=== PATIENT | male | born 1955 | race Caucasian/White ===

== ENCOUNTER 2017-06-24 10:16 | Inpatient (IN) | payer OTHER ==
[2017-06-24] VITALS (11 sets, daily range): BP systolic 93–179; BP diastolic 52–79; PULSE 69–100; RESP 20–22; TEMP 99.6; Ht 165.1 cm; Wt 126.4 kg
[~2017-06-24] VITALS: Ht 165.1 cm; Wt 126.4 kg
[~2017-06-24 10:16] MED LIST: AMLO5TAB4 PO; CARV3.1260 PO; LISI-313 PO; RANI150T9 PO; ZOC10 PO
--- NOTE | 2017-06-24 10:38 | ERA ---
ER Documentation Chief Complaint Date/Time DATE: 06/24/17 TIME: 10:37 Chief Complaint sob, body aches x 3 days HPI 61-year-old man brought in by EMS short of breath. He does have a history of hypertension, congestive heart failure, coronary artery disease. He states he has had tactile fevers for the last 3 days and cough. He also complains of recent bilateral lower extremity swelling. He has had no vomiting or diarrhea, no blood per rectum or melena, no recent travel or antibiotic use. ROS All systems reviewed and are negative except as per history of present illness. Medications Home Meds Reported Medications Ergocalciferol (Vitamin D2) (VITAMIN D2) 50,000 Unit Capsule, 84405 UNIT PO WEEKLY, CAP 06/24/17 Furosemide* (Furosemide*) 40 Mg Tablet, 40 MG PO DAILY, TAB 06/24/17 Aspirin* (Aspirin* Chew) 81 Mg Tab.chew, 81 MG PO DAILY, TAB.CHEW 06/24/17 Gabapentin* (Gabapentin*) 300 Mg Capsule, 300 MG PO QHS, #90 CAP 06/24/17 Glimepiride* (Glimepiride*) 1 Mg Tablet, 1 MG PO WITH BREAKFAST, TAB 06/24/17 Tamsulosin Hcl* (Flomax*) 0.4 Mg Cap.er.24h, 0.4 MG PO HS, CAP 06/24/17 Carvedilol* (Carvedilol*) 3.125 Mg Tablet, 3.125 MG PO BID, TAB 05/05/15 Ranitidine Hcl* (Zantac*) 150 Mg Tablet, 150 MG PO DAILY, TAB 05/05/15 Simvastatin (Simvastatin) 10 Mg Tablet, 10 MG PO HS, TAB 05/05/15 Discontinued Reported Medications Lisinopril* (Lisinopril*) 5 Mg Tablet, 5 MG PO DAILY, TAB 05/05/15 Amlodipine Besylate* (Norvasc*) 5 Mg Tablet, 5 MG PO QHS, TAB 05/05/15 Allergies Allergies: Coded Allergies: No Known Allergy (Verified Allergy, Unknown, 03/12/10) PMhx/Soc CABG, 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, hypertension, gastritis, Hernia, CHF, Obesity History of Surgery: Yes (open heart surgery) Anesthesia Reaction: No Hx Neurological Disorder: No Hx Respiratory Disorders: No Hx Cardiac Disorders: Yes (HTN, hx of open heart surg) Hx Psychiatric Problems: No Hx Miscellaneous Medical Probl: No Hx Alcohol Use: No Hx Substance Use: No Hx Tobacco Use: Yes FmHx Family History: No diabetes Physical Exam Vitals Vital Signs Date Time Temp Pulse Resp B/P Pulse Ox O2 Delivery O2 Flow Rate FiO2 06/24/17 12:47 80 97 60 06/24/17 12:27 84 24 107/54 96 BIPAP 06/24/17 12:08 99.6 85 26 107/65 98 BIPAP 06/24/17 10:52 91 97 50 06/24/17 10:18 100.1 94 18 146/69 86 Physical Exam GENERAL: Well-developed, dyspneic, febrile HEENT: Moist mucous membranes, pink conjunctiva, no cervical spine tenderness or step-off deformities, no goiter, no jaundice or icterus, extraocular movements intact without pain. No submandibular induration, and no pharyngeal erythema NEURO: Alert and oriented 3, cranial nerves II through XII intact bilaterally, pupils equal round reactive to light, no focal deficits or facial asymmetry, sensation intact distally Strength 5/5 in upper and lower extremities bilaterally CARDIAC: Regular rate and rhythm, no murmurs rubs or gallops LUNGS: Crackles bilaterally, poor breath sounds, no wheezing or stridor, dyspneic ABDOMEN: Soft nontender, no guarding, no rigidity, no rebound, no psoas sign no obturator sign. Normoactive bowel sounds SKIN: Warm and dry to touch, no abrasions, contusions, or hematomas, no lacerations, no ecchymosis, no target lesions, and without ulcers EXTREMITIES: 3+ pitting edema in the lower extremities bilaterally, calves bilaterally symmetrical, no Homans sign PSYCH: Normal affect without agitation or irritability Result Diagram: 06/24/17 1035 06/24/17 1035 Results 24 hrs Laboratory Tests Test 06/24/17 10:35 06/24/17 12:50 White Blood Count 17.410^3/ul Red Blood Count 4.1110^6/ul Hemoglobin 11.8g/dl Hematocrit 36.4% Mean Corpuscular Volume 88.6fl Mean Corpuscular Hemoglobin 28.7pg Mean Corpuscular Hemoglobin Concent 32.4g/dl Red Cell Distribution Width 14.6% Platelet Count 71299^3/UL Mean Platelet Volume 10.9fl Neutrophils % 80.6% Lymphocytes % 8.6% Monocytes % 8.5% Eosinophils % 0.0% Basophils % 0.6% Nucleated Red Blood Cells % 0.0/100WBC Neutrophils # 14.110^3/ul Lymphocytes # 1.510^3/ul Monocytes # 1.510^3/ul Eosinophils # 0.010^3/ul Basophils # 0.110^3/ul Nucleated Red Blood Cells # 0.010^3/ul Prothrombin Time 15.6Sec Prothrombin Time Ratio 1.2 INR International Normalized Ratio 1.23 Activated Partial Thromboplast Time 39.4Sec Sodium Level 132mmol/L Potassium Level 4.0mmol/L Chloride Level 96mmol/L Carbon Dioxide Level 26mmol/L Anion Gap 14 Blood Urea Nitrogen 11mg/dl Creatinine 0.90mg/dl Glucose Level 140mg/dl Lactic Acid Level 2.6mmol/L 1.9mmol/L Calcium Level 8.4mg/dl Total Bilirubin 0.5mg/dl Direct Bilirubin 0.00mg/dl Indirect Bilirubin 0.5mg/dl Aspartate Amino Transf (AST/SGOT) 67IU/L Alanine Aminotransferase (ALT/SGPT) 147IU/L Alkaline Phosphatase 105IU/L Troponin I 0.054ng/ml B-Type Natriuretic Peptide 1260PG/ML Total Protein 7.5g/dl Albumin 3.5g/dl Globulin 4.00g/dl Albumin/Globulin Ratio 0.87 Lipase 74U/L Current Medications Medications (Trade) Dose Ordered Sig/Serge Route PRN Reason Start Time Stop Time Status Last Admin Dose Admin Ceftriaxone Sodium 50 ml @ 100 mls/hr ONCE ONCE IVPB 06/24/17 11:00 06/24/17 11:29 DC 06/24/17 11:26 Azithromycin (Zithromax 500mg/ NS (Pmx)) 250 ml @ 250 mls/hr ONCE ONCE IVPB 06/24/17 11:00 06/24/17 11:59 DC 06/24/17 11:00 Ibuprofen (Motrin) 600 mg ONCE ONCE PO 06/24/17 11:00 06/24/17 11:01 DC 06/24/17 11:26 Furosemide (Lasix) 60 mg ONCE ONCE IV 06/24/17 11:00 06/24/17 11:01 DC 06/24/17 11:26 Nitroglycerin (Nitroglycerin (Sl Tab) 0.4 Mg) 1 tab ONCE ONCE SL 06/24/17 11:00 06/24/17 11:01 DC 06/24/17 11:26 Aspirin (Aspirin) 324 mg ONCE ONCE PO 06/24/17 11:00 06/24/17 11:01 DC 06/24/17 11:26 Albuterol (Proventil 0.083% (Neb)) 5 mg ONCE STAT HHN 06/24/17 10:40 06/24/17 10:47 DC 06/24/17 10:52 IV Flush (NS 3 ml) 3 ml PER PROTOCOL IV 06/24/17 13:30 Ondansetron HCl (Zofran Inj) 4 mg Q6H PRN IV NAUSEA AND/OR VOMITING 06/24/17 13:30 Aspirin (Aspirin) 81 mg DAILY PO 06/25/17 09:00 Acetaminophen (Tylenol Tab) 650 mg Q6H PRN PO PAIN LEVEL 1-3 OR FEVER 06/24/17 13:30 Famotidine (Pepcid Iv) 20 mg Q12 IV 06/24/17 21:00 Heparin Sodium (Porcine) 5000 unit 5,000 unit Q8 SC 06/24/17 14:00 Ceftriaxone Sodium 50 ml @ 100 mls/hr DAILY IVPB 06/25/17 09:00 Azithromycin (Zithromax 500mg/ NS (Pmx)) 250 ml @ 250 mls/hr Q24H IVPB 06/25/17 10:00 Carvedilol (Coreg) 3.125 mg BID PO 06/24/17 21:00 UNV Gabapentin (Neurontin) 300 mg QHS PO 06/24/17 21:00 UNV Tamsulosin HCl (Flomax) 0.4 mg HS PO 06/24/17 21:00 UNV Miscellaneous Information 10 mg HS PO 06/24/17 21:00 UNV Procedures/MDM IV line was established patient was placed on cardiac technologist rhythm strip revealed a sinus rhythm at about 80 bpm with upright P and T waves. Patient was febrile, blood and urine cultures were ordered results are pending I will follow-up.Patient was initially hypoxic at 88% on room air. Patient was immediately placed on BiPAP therapy for respiratory support. I administered aspirin 324 mg p.o. for cardioprotective measures, nitroglycerin 0.4 mg sublingual, Lasix 60 mg IV 1, ibuprofen 600 mg p.o. for fever, ceftriaxone 1 g IV and azithromycin 500 mg IV. Patient also received albuterol 5 mg via nebulizer. EKG performed, read by me revealed a normal sinus rhythm 87 bpm, left axis deviation, narrow QRS complex, no concerning ST elevations or depressions noted. One view chest x-ray performed, read by me revealed cardiomegaly and a right middle lobe infiltrate as well as bilateral vascular congestion concerning for decompensated heart failure, Positive sternotomy wires. CBC reveals a leukocytosis of 17, electrolytes are unremarkable, liver function tests revealed mild transaminitis, troponin negative, BNP elevated at over 1200. Lactic acid elevated at 2.6, repeat at 1.9. IV fluids were completely held because patient has acute decompensated systolic heart failure. Patient's infectious symptoms have not stabilized and the patient is at risk of rapid decompensation. The patient will be admitted for careful hydration, antibiotic therapy, and infectious source control. Severe Sepsis Assessment: Infectious Source: Pneumonia End organ damage indicated by: [Lactate > 2.0 mmol/L Hypotension( SBP < 90 or >40 mmHG drop or MAP < 65) Acute Resp Failure (sat < 92% w/o oxygen) Severe Sepsis Managment: Blood Cultures X 2 before broad spectrum antibiotics initiated within 3 hours of recognition. 30 ml/kg NS bolus contraindicated because of decompensated heart failure Initial Lactate: 2.6 Repeat Lactate 1.9 Critical Care: Time: 60 minutes, this was time separate from other billable procedures Treatments/Evaluations: Emergent fluid management, while maintaining close respiratory support. Immediate broad spectrum antibiotic therapy. Simultaneous assessment for possible sources in order to direct therapy. Consideration for invasive and chemical support to prevent respiratory or cardiac collapse. Septic Shock Assessment (1 hour post 30 ml/kg fluid bolus): Hypotension (SBP < 90 or 40 mmHg drop, MAP < 65): No Lactic acid > 4.0 No Perfusion Reassessment for Septic Shock: Temp 99.9, pulse 90 bpm, respiratory rate 18 breaths per minute, lead pressure 110/60, oxygen saturation 96% on BiPAP Heart Exam: Regular rate rhythm, no murmurs Lung Exam: Bibasilar crackles Capillary Refill: Less than 2 second Peripheral Pulses: Radially present Skin: Warm and dry Hypotensive Treatment (not required for isolated lactic acid elevation): Comfort Care: No Central LIne: Not indicated Vasopressor started: Not indicated Considered further perfusion assessment with CVP measurement, SCVO2, bedside ultrasound volume assessment, passive leg raise, trial of further fluid bolus. And preceded with IV antibiotics and BiPAP therapy Accepting Care Team: Current data and ongoing care discussed. Time: Time of admission Primary Provider: Hospitalist Consulting: Cardiology and pulmonology Outstanding Data: none Departure Diagnosis: Primary Impression: Acute respiratory failure Qualified Code: J96.01 - Acute respiratory failure with hypoxia and hypercapnia Additional Impressions: Septic shock Pneumonia Qualified Code: J18.1 - Pneumonia of right middle lobe due to infectious organism CHF (congestive heart failure) Qualified Code: I50.21 - Acute systolic congestive heart failure Hypertension Qualified Code: I10 - Essential hypertension Condition: Serious SHANIA VARGHESE MD Jun 24, 2017 10:38
[2017-06-24] MEDS ORDERED: ALBUTEROL 0.083% (NEB) 2.5 MG/3 ML AMP HHN STA (10:40)
[2017-06-24] MEDS ORDERED: ASPIRIN 81 MG TAB PO ONE (11:00)
[2017-06-24] MEDS ORDERED: FUROSEMIDE 40 MG INJ IV ONE (11:00)
[2017-06-24] MEDS ORDERED: AZITHROMYCIN 500MG/NS (PMX) 250 ML IVPB ONE (11:00)
[2017-06-24] MEDS ORDERED: NITROGLYCERIN (SL) 0.4 MG TAB SL ONE (11:00)
[2017-06-24] MEDS ORDERED: IBUPROFEN 600 MG TAB PO ONE (11:00)
[2017-06-24] MEDS ORDERED: CEFTRIAXONE 1 GM/50 ML (PMX) 50 ML IVPB ONE (11:00)
[2017-06-24 11:02] LABS: BASOPHIL # 0.1 10^3/ul (0.0-0.1); BASOPHILS % 0.6 % (0.0-2.0); HEMATOCRIT 36.4 % (42.0-52.0); HEMOGLOBIN 11.8 g/dl (14.0-18.0); LYMPHOCYTES # 1.5 10^3/ul (0.8-2.9); LYMPHOCYTES % 8.6 % (15.0-51.0); MEAN CORPUSCULAR HEMOGLOBIN 28.7 pg (29.0-33.0); MEAN CORPUSCULAR HGB CONC 32.4 g/dl (32.0-37.0); MEAN CORPUSCULAR VOLUME 88.6 fl (82.0-101.0); MEAN PLATELET VOLUME 10.9 fl (7.4-10.4); MONOCYTE # 1.5 10^3/ul (0.3-0.9); MONOCYTES % 8.5 % (0.0-11.0); NEUTROPHIL # 14.1 10^3/ul (1.6-7.5); NEUTROPHILS % 80.6 % (39.0-77.0); PLATELET COUNT 193 10^3/UL (140-415); RED BLOOD COUNT 4.11 10^6/ul (4.70-6.10); RED CELL DISTRIBUTION WIDTH 14.6 % (11.5-14.5); WHITE BLOOD COUNT 17.4 10^3/ul (4.8-10.8)
[2017-06-24 11:20] LABS: INR 1.23; PROTIME 15.6 Sec (12.2-14.2); PT RATIO 1.2
--- NOTE | 2017-06-24 11:20 | RADRPT ---
PROCEDURE: Chest Radiograph. CLINICAL INDICATION: Sepsis TECHNIQUE: Single frontal chest radiograph. COMPARISON: Chest radiograph 05/05/2015 FINDINGS: Patient is status post sternotomy. Patient rotation limits evaluation of heart size.. There are bib asilar opacities suggesting infiltrates. There are trace bilateral effusions. There is interstitial prominence which may represent chronic lung changes or pulmonary edema.. The bones are intact. IMPRESSION: 1. Bibasilar opacities consistent with small effusions with adjacent atelectasis/infiltrate. 2. Nonspecific interstitial prominence suggesting pulmonary edema. RPTAT: KK .Jaydon Justice MD, MD Date Time Electronically viewed and signed by .Jaydon Justice MD, on 06/24/2017 11:19 .B/
[2017-06-24 11:21] LABS: PARTIAL THROMBOPLASTIN TIME 39.4 Sec (25.0-35.0)
[2017-06-24 11:26] LABS: ALBUMIN 3.5 g/dl (3.3-4.9); ALBUMIN/GLOBULIN RATIO 0.87; BILIRUBIN,INDIRECT 0.5 mg/dl (0-1.1); BILIRUBIN,TOTAL 0.5 mg/dl (0.2-1.3); CALCIUM 8.4 mg/dl (8.4-10.2); CREATININE 0.9 mg/dl (0.61-1.24); TOTAL PROTEIN 7.5 g/dl (6.1-8.1)
[2017-06-24 11:34] LABS: TROPONIN-I 0.054 ng/ml (0.00-0.12)
[2017-06-24] MEDS ORDERED: TAMS-14 PO (12:25)
[2017-06-24] MEDS ORDERED: GLIM1TAB2 PO (12:25)
[2017-06-24] MEDS ORDERED: FURO40TA4 PO (12:28)
[2017-06-24] MEDS ORDERED: GABA300C16 PO (12:28)
[2017-06-24] MEDS ORDERED: ASPI81TA3 PO (12:28)
[2017-06-24] MEDS ORDERED: ERGO500037 PO (12:29)
[2017-06-24] MEDS ORDERED: NACL 0.9% 3 ML SYG IV SCH (13:30)
[2017-06-24] MEDS ORDERED: ACETAMINOPHEN 325 MG TAB PO PRN (13:30)
[2017-06-24] MEDS ORDERED: ONDANSETRON 4 MG INJ IV PRN (13:30)
--- NOTE | 2017-06-24 14:25 | HP ---
Date/Time of Note Date/Time of Note DATE: 06/24/17 TIME: 14:21 Assessment/Plan VTE Prophylaxis VTE Prophylaxis Intervention: heparin Lines/Catheters IV Catheter Type (from Nrs): Peripheral IV Assessment/Plan Assessment/Plan 1, Sepsis secondary to right lower lobe pneumonia - Placed on BIPAP and tolerating well - Pulmonology consulted for BIPAP management and appreciate recommendations - Started on Azithromycin and Ceftriaxone, will deescalate as patient improves - Nebs PRN for SOB - Lactic acid initially 2.6 but repeat normalized. Will continue monitoring - WBC 17K - Tylenol PRN for fevers - Pancultures obtained and will await results 2. Community acquired pneumonia - Started on Antibiotics - On BIPAP and will wean as tolerated - Nebs PRN for SOB - will encourage ambulation and incentive spirometry once off BIPAP 3. acute decompensated systolic heart failure - CXR shows pulmonary congestion and given dose of Lasix in ED - Was found to have BNP 1000s but also found to have sepsis so will intermittently diurese until sepsis fully resolved - Cardiology consulted and appreciated recommendations - Daily weights and monitor I/O 4. hyponatremia - Most likely secondary to hypervolemia - Will continue to monitor and workup if no resolution once fluid balance improves 5. transaminitis - Most likely secondary to congestion - Will continue to monitor 6. Diabetes Mellitus - hold PO home medications - check A1c - mild ISS 7. h/o CAD s/p CABG 10 years ago - per son, seen by cardiology recently and told everything was stable - Will order ECHO 8. Diet - Cardiac diet 9. GI prophylaxis - Pepcid 10. DVT prophylaxis - Heparin 11. Code status - Full Code >45 minutes was spent caring for patient at time of admission. HPI/ROS Admit Date/Time Admit Date/Time 06/24/17 Hx of Present Illness 61 yo M with PMH CAD s/p CABG 10 years ago, HTN, CAD, prediabetes, and ventral hernia presents to the ED after c/o SOB and myalgia for the past 3 days. Patient family was at bedside and history obtained from patient as well as son. Patient lives at home with son as well. Patient has been experiencing SOB with nonproductive cough that has been progressively worsening. Admits to associated fever, chills, sweats, nausea with vomiting, and diarrhea. Per son, he believes he may have the flu and source of sick contact for patient. Patient has also been experiencing lower extremity swelling but believes it was secondary to insect bite he obtained a couple months ago. Patient lives a sedentary lifestyle and has been eliminating carbohydrates from his diet with goal of weight loss. Patient denies any chest pain, dizziness, palpitations, numbness/tingling, or any other concerning symptoms. Patient was found to be hypoxic in the ED and started on BIPAP which he has been tolerating well. ROS Constitutional: chills, fatigue, febrile, nausea, No disoriented Eyes: no complaints ENT: no complaints Respiratory: cough, shortness of breath, No sputum, No wheezing Cardiovascular: edema, No chest pain, No lightheadedness, No palpitations Gastrointestinal: nausea, pain (site of ventral hernia), No constipation, No diarrhea Genitourinary: no complaints Musculoskeletal: no complaints Skin: erythema Neurologic: no complaints Endocrine: no complaints Lymphatic: no complaints Psychological: nl mood/affect, no complaints Immunologic: no complaints PMH/Family/Social Past Medical History Medical History: coronary artery disease, diabetes, hypertension Past Surgical History Past Surgical Hx: coronary bypass surgery, other (ventral hernia repair) Family History Significant Family History: no pertinent family hx Social History Alcohol Use: none Smoking Status: Former smoker Drug Use: none Exam/Review of Systems Vital Signs Vitals Vital Signs Date Time Temp Pulse Resp B/P Pulse Ox O2 Delivery O2 Flow Rate FiO2 06/24/17 12:47 80 97 60 06/24/17 12:27 24 107/54 BIPAP 06/24/17 12:08 99.6 Exam Constitutional: alert, oriented, well developed Psych: no complaints Head: atraumatic, normocephalic Eyes: EOMI, nl conjunctiva, nl sclera ENMT: mucosa pink and moist Neck: non-tender, supple Respiratory: crackles/rales (at bases b/l), normal air movement, other (on BIPAP), No wheezing Cardiovascular: nl pulses, regular rate and rhythm, No systolic murmur Gastrointestinal: bowel sounds, soft, tender (epigastric area at site of ventral hernia with palpation), No ascites, No hepatomegaly, No rebound or guarding Genitourinary - Male: No CVA tenderness, No discharge Musculoskeletal: nl extremities to inspection, nl gait and stance Extremities: edema, pitting pedal edema 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, nl mental status, nl speech, nl strength Skin: diaphoresis Lymph: nl lymph nodes Labs Result Diagram: 06/24/17 1035 06/24/17 1035 Medications Medications Current Medications Ondansetron HCl (Zofran Inj) 4 mg Q6H PRN IV NAUSEA AND/OR VOMITING; Start at 13:30 Aspirin (Aspirin) 81 mg DAILY PO ; Start 06/25/17 at 09:00 Acetaminophen (Tylenol Tab) 650 mg Q6H PRN PO PAIN LEVEL 1-3 OR FEVER; Start at 13:30 Famotidine (Pepcid Iv) 20 mg Q12 IV ; Start 06/24/17 at 21:00 Heparin Sodium (Porcine) 5000 unit 5,000 unit Q8 SC ; Start 06/24/17 at 14:00 Ceftriaxone Sodium 50 ml @ 100 mls/hr DAILY IVPB ; Start 06/25/17 at 09:00 Azithromycin (Zithromax 500mg/ NS (Pmx)) 250 ml @ 250 mls/hr Q24H IVPB ; Start 06/25/17 at 10:00 Carvedilol (Coreg) 3.125 mg BID PO ; Start 06/24/17 at 21:00 Gabapentin (Neurontin) 300 mg QHS PO ; Start 06/24/17 at 21:00 Tamsulosin HCl (Flomax) 0.4 mg HS PO ; Start 06/24/17 at 21:00 Atorvastatin Calcium (Lipitor) 10 mg DAILY@21 PO ; Start 06/24/17 at 21:00 NICOLA EUBANKS MD Jun 24, 2017 14:25
[2017-06-24] MEDS: HEPARIN 5,000 UNIT/0.5 ML VIAL SC SCH ×2 (14:40→22:10)
[2017-06-24] MEDS ORDERED: GLUCAGON 1 MG INJ IM PRN (15:00)
[2017-06-24] MEDS ORDERED: DEXTROSE 50% 50 ML SYRINGE IV PRN ×2 (15:00)
[2017-06-24] MEDS ORDERED: GLUCOSE GEL 15 GRAM TUBE BUCCAL PRN (15:00)
[2017-06-24] MEDS ORDERED: GLUCOSE GEL 15 GRAM TUBE PO PRN ×2 (15:00)
[2017-06-24] MEDS ORDERED: ALBUTEROL 0.083% (NEB) 2.5 MG/3 ML AMP HHN PRN (15:00)
--- NOTE | 2017-06-24 16:14 | CONS ---
Date/Time of Note Date/Time of Note DATE: 06/24/17 TIME: 16:14 Consultation Date/Type/Reason Admit Date/Time 06/24/17 Date of Consultation: Jun 24, 2017 Type of Consultation: pulmonary Eyes: no complaints ENT: no complaints Respiratory: cough, shortness of breath, No sputum, No wheezing Cardiovascular: edema, No chest pain, No lightheadedness, No palpitations Gastrointestinal: nausea, pain (site of ventral hernia), No constipation, No diarrhea Genitourinary: no complaints Musculoskeletal: no complaints Skin: erythema Neurologic: no complaints Lymphatic: no complaints Psychological: no complaints Immunologic: no complaints Past Medical History Medical History: coronary artery disease, diabetes, hypertension Past Surgical History Past Surgical Hx: coronary bypass surgery, other (ventral hernia repair) Social History Alcohol Use: none Smoking Status: Former smoker Drug Use: none Exam/Review of Systems Vital Signs Vitals Vital Signs Date Time Temp Pulse Resp B/P Pulse Ox O2 Delivery O2 Flow Rate FiO2 06/24/17 16:03 69 06/24/17 13:56 97 60 06/24/17 12:27 24 107/54 BIPAP 06/24/17 12:08 99.6 Results Result Diagram: 06/24/17 1035 06/24/17 1035 Results 24 hrs Laboratory Tests Test 06/24/17 10:35 06/24/17 12:50 06/24/17 15:03 White Blood Count 17.4 H Red Blood Count 4.11 L Hemoglobin 11.8 L Hematocrit 36.4 L Mean Corpuscular Volume 88.6 Mean Corpuscular Hemoglobin 28.7 L Mean Corpuscular Hemoglobin Concent 32.4 Red Cell Distribution Width 14.6 H Platelet Count 193 Mean Platelet Volume 10.9 H Neutrophils % 80.6 H Lymphocytes % 8.6 L Monocytes % 8.5 Eosinophils % 0.0 Basophils % 0.6 Nucleated Red Blood Cells % 0.0 Neutrophils # 14.1 H Lymphocytes # 1.5 Monocytes # 1.5 H Eosinophils # 0.0 Basophils # 0.1 Nucleated Red Blood Cells # 0.0 Prothrombin Time 15.6 H Prothrombin Time Ratio 1.2 INR International Normalized Ratio 1.23 Activated Partial Thromboplast Time 39.4 H Sodium Level 132 L Potassium Level 4.0 Chloride Level 96 L Carbon Dioxide Level 26 Anion Gap 14 Blood Urea Nitrogen 11 Creatinine 0.90 Glucose Level 140 Lactic Acid Level 2.6 *H 1.9 1.8 Calcium Level 8.4 Total Bilirubin 0.5 Direct Bilirubin 0.00 Indirect Bilirubin 0.5 Aspartate Amino Transf (AST/SGOT) 67 H Alanine Aminotransferase (ALT/SGPT) 147 H Alkaline Phosphatase 105 Troponin I 0.054 B-Type Natriuretic Peptide 1260 H Total Protein 7.5 Albumin 3.5 Globulin 4.00 H Albumin/Globulin Ratio 0.87 Lipase 74 Medications Medications Current Medications Ondansetron HCl (Zofran Inj) 4 mg Q6H PRN IV NAUSEA AND/OR VOMITING; Start at 13:30 Aspirin (Aspirin) 81 mg DAILY PO ; Start 06/25/17 at 09:00 Acetaminophen (Tylenol Tab) 650 mg Q6H PRN PO PAIN LEVEL 1-3 OR FEVER; Start at 13:30 Famotidine (Pepcid Iv) 20 mg Q12 IV ; Start 06/24/17 at 21:00 Heparin Sodium (Porcine) 5000 unit 5,000 unit Q8 SC Last administered on t 14:40; Admin Dose 5,000 UNIT; Start 06/24/17 at 14:00 Azithromycin (Zithromax 500mg/ NS (Pmx)) 250 ml @ 250 mls/hr Q24H IVPB ; Start 06/25/17 at 10:00 Carvedilol (Coreg) 3.125 mg BID PO ; Start 06/24/17 at 21:00 Gabapentin (Neurontin) 300 mg QHS PO ; Start 06/24/17 at 21:00 Tamsulosin HCl (Flomax) 0.4 mg HS PO ; Start 06/24/17 at 21:00 Atorvastatin Calcium (Lipitor) 10 mg DAILY@21 PO ; Start 06/24/17 at 21:00 Diagnostic Test (Pha) (Accu-Chek) 1 ea 02 XX ; Start 06/25/17 at 02:00 Miscellaneous Information 1 ea NOTE XX ; Start 06/24/17 at 15:00 Glucose (Glutose) 15 gm Q15M PRN PO DECREASED GLUCOSE; Start 06/24/17 at 15:00 Glucose (Glutose) 22.5 gm Q15M PRN PO DECREASED GLUCOSE; Start 06/24/17 at 15: 00 Dextrose (D50w Syringe) 25 ml Q15M PRN IV DECREASED GLUCOSE; Start 06/24/17 at 15:00 Dextrose (D50w Syringe) 50 ml Q15M PRN IV DECREASED GLUCOSE; Start 06/24/17 at 15:00 Glucagon (Glucagen) 1 mg Q15M PRN IM DECREASED GLUCOSE; Start 06/24/17 at 15:00 Glucose (Glutose) 15 gm Q15M PRN BUCCAL DECREASED GLUCOSE; Start 06/24/17 at 15 :00 Albuterol 2.5 mg 2.5 mg Q4 PRN HHN SHORTNESS OF BREATH; Start 06/24/17 at 15:00 Cefepime HCl (Maxipime 1gm/50 ml (Pmx)) 50 ml @ 100 mls/hr Q12 IVPB ; Start at 21:00 ABIGAIL MAC Jun 24, 2017 16:14
[2017-06-24] MEDS: INSULIN ASPART [NOVOLOG] 3 ML PEN SC SCH ×2 (18:00→21:00)
[2017-06-24] MEDS: ACCU-CHEK XX SCH ×2 (20:00→20:05)
--- NOTE | 2017-06-24 20:25 | RADRPT ---
Echocardiogram Report Patient Name: ELEUTERIO WARE Gender: Male Date: 1955 Study Date: 24-Jun-2017 Inspector Water Pollution Control: Greta Izaguirre [facility] Location: [id number] Ref. Physician: NICOLA EUBANKS Quality: Adequate Procedures: Transthoracic echocardiogram with complete 2D, M-Mode, and doppler examination. Indications: Congestive Heart Failure, h/o CABG 10 years ago. 2D/M Mode Doppler Measurement Value Normal Ranges Measurement Value Normal Ranges LVIDd 2D 5.4 3.5 - 5.6 cm AV Peak Zachary 1.7 m/sec LVIDs 2D 3.7 2.1 - 4.1 cm AV Peak PG 12.2 mmHg LVPWd 2D 1.2 0.6 - 1.1 cm LVOT Peak Zachary 1.2 m/sec IVSd 2D 1.3 0.6 - 1.1 cm LVOT Peak PG 6.0 mmHg AoR Diam 2D 2.9 2.0 - 3.7 cm MV E Peak Zachary 0.8 m/sec EDV 2D 139.7 cm3 MV A Peak Zachary 0.6 m/sec ESV 2D 49.8 cm3 MV E/A 1.4 LA Dimen 2D 4.0 2.3 - 4.0 cm MV Decel Time 251 msec MV Decel Hardin 3 MV E/A 1.4 TR Peak Zachary 2.7 m/sec TR Peak PG 29.4 mmHg RVSP 37.0 mmHg Findings Left Ventricle: Lower limits of normal systolic function. Normal left ventricular cavity size. Mild concentric left ventricular hypertrophy. Ejection fraction is visually estimated at 50 %. Abnormal Diastolic Function. Right Ventricle: Normal right ventricular size. Normal right ventricular systolic function. Left Atrium: There is mild enlargement of left atrium. Right Atrium: The right atrium is normal in size. Mitral Valve: Normal appearance and function of the mitral valve with trace physiologic regurgitation. Aortic Valve: No significant aortic stenosis or insufficiency. Aortic cusps appear mildly calcified. Tricuspid Valve: Normal appearance of the tricuspid valve. Estimated peak PA systolic pressure 37 mmHg. There is mild tricuspid regurgitation. Pulmonic Valve: Normal pulmonic valve appearance. There is trace pulmonic regurgitation. Pericardium: Normal pericardium with no significant pericardial effusion. Aorta: Normal aortic root. IVC: Dilated IVC with respiratory collapse consistent with elevated right atrial pressure. Conclusions 1.Lower limits of normal systolic function. Normal left ventricular cavity size. Mild concentric left ventricular hypertrophy. Ejection fraction is visually estimated at 50 %. Abnormal Diastolic Function. 2.There is mild enlargement of left atrium. 3.Normal appearance and function of the mitral valve with trace physiologic regurgitation. 4.No significant aortic stenosis or insufficiency. Aortic cusps appear mildly calcified. 5.Normal appearance of the tricuspid valve. Estimated peak PA systolic pressure 37 mmHg. There is mild tricuspid regurgitation. 6.Dilated IVC with respiratory collapse consistent with elevated right atrial pressure. Electronically Signed By: Willis Wright 24-Jun-2017 20:24:09 -0700 Patient Name: ELEUTERIO WARE Study Date: 24-Jun-[id number]
--- NOTE | 2017-06-24 20:49 | CONS ---
Date/Time of Note Date/Time of Note DATE: 06/24/17 TIME: 20:42 Assessment/Plan Assessment/Plan Chief Complaint/Hosp Course 1. CHF 2. Pneumonia 3. CAD 4. HX CABG 5. HTN 6. Dyslipidemia 7 .likely YANNA 8./ Obesity 9. ex-smoker REC: cont ASA COREG PULM CARE, BIPAP PER PULM S/ P IV LASIX monitor I/O STATIN DM CONTROL ABX PER IM/ PULM DR WHITING / or his associates will f/u tomorrow. THANK YOU MARYAN MORALES MD [facility] Problems: Consultation Date/Type/Reason Admit Date/Time 06/24/17 Date of Consultation: Jun 24, 2017 Type of Consultation: cardiology Reason for Consultation CHF. CAD Referring Provider: NICOLA EUBANKS MD Hx of Present Illness CC: SOB . COUGH. FEVER HPI: Thank you for this referral. History was informed of the patient's from discussion with his and family member. From access and revealed the old chart. This is a 61-year-old gentleman with history of coronary artery disease status post four-vessel coronary artery bypass graft in 2009 who presented with increasing shortness of breath cough and fever of up to 101. He denies any chest pain to me.. His BNP was elevated and we were kindly asked to evaluate and treat. According to the patient redeye gunner is Dr. Whiting allergy nkda meds reviewed. social quit smoking. family hx: denies early CAD PMH: CAD,. S/P [place], CABG 2013 ( 4 vessel) HTN DM Dyslipidemia morbid obeisty exsmoker ROS: + snoring at night. denies all others except for above Eyes: no complaints ENT: no complaints Respiratory: cough, shortness of breath, No sputum, No wheezing Cardiovascular: edema, No chest pain, No lightheadedness, No palpitations Gastrointestinal: nausea, pain (site of ventral hernia), No constipation, No diarrhea Genitourinary: no complaints Musculoskeletal: no complaints Skin: erythema Neurologic: no complaints Lymphatic: no complaints Psychological: no complaints Immunologic: no complaints Past Medical History Medical History: coronary artery disease, diabetes, hypertension Past Surgical History Past Surgical Hx: coronary bypass surgery, other (ventral hernia repair) Social History Alcohol Use: none Smoking Status: Former smoker Drug Use: none Exam/Review of Systems Vital Signs Vitals Vital Signs Date Time Temp Pulse Resp B/P Pulse Ox O2 Delivery O2 Flow Rate FiO2 06/24/17 19:43 93 70 06/24/17 19:42 97.5 87 22 112/63 06/24/17 12:27 BIPAP Exam General:obese on BIPAP HEENT: NC/AT. pupils are equal. round. NECK: NO JVD. no stridor. CV: RRR. systolic murmur; no gallop or rubs. PULM: no wheezing. + rhonchi. GI: SOFT, NT, ND, no rebound or guarding obese,. Extremity: trace B/L LE edema. no clubbing. neuro: awake and alert, OX3. Psych: calm and pleasant rectal: deferred : normal ECHO reviewed EF 50% Results Result Diagram: 06/24/17 1035 06/24/17 1035 Results 24 hrs Laboratory Tests Test 06/24/17 10:35 06/24/17 12:50 06/24/17 15:03 06/24/17 17:21 White Blood Count 17.4 H Red Blood Count 4.11 L Hemoglobin 11.8 L Hematocrit 36.4 L Mean Corpuscular Volume 88.6 Mean Corpuscular Hemoglobin 28.7 L Mean Corpuscular Hemoglobin Concent 32.4 Red Cell Distribution Width 14.6 H Platelet Count 193 Mean Platelet Volume 10.9 H Neutrophils % 80.6 H Lymphocytes % 8.6 L Monocytes % 8.5 Eosinophils % 0.0 Basophils % 0.6 Nucleated Red Blood Cells % 0.0 Neutrophils # 14.1 H Lymphocytes # 1.5 Monocytes # 1.5 H Eosinophils # 0.0 Basophils # 0.1 Nucleated Red Blood Cells # 0.0 Prothrombin Time 15.6 H Prothrombin Time Ratio 1.2 INR International Normalized Ratio 1.23 Activated Partial Thromboplast Time 39.4 H Sodium Level 132 L Potassium Level 4.0 Chloride Level 96 L Carbon Dioxide Level 26 Anion Gap 14 Blood Urea Nitrogen 11 Creatinine 0.90 Glucose Level 140 Lactic Acid Level 2.6 *H 1.9 1.8 Calcium Level 8.4 Total Bilirubin 0.5 Direct Bilirubin 0.00 Indirect Bilirubin 0.5 Aspartate Amino Transf (AST/SGOT) 67 H Alanine Aminotransferase (ALT/SGPT) 147 H Alkaline Phosphatase 105 Troponin I 0.054 B-Type Natriuretic Peptide 1260 H Total Protein 7.5 Albumin 3.5 Globulin 4.00 H Albumin/Globulin Ratio 0.87 Lipase 74 Bedside Glucose 133 Medications Medications Current Medications Ondansetron HCl (Zofran Inj) 4 mg Q6H PRN IV NAUSEA AND/OR VOMITING; Start at 13:30 Aspirin (Aspirin) 81 mg DAILY PO ; Start 06/25/17 at 09:00 Acetaminophen (Tylenol Tab) 650 mg Q6H PRN PO PAIN LEVEL 1-3 OR FEVER; Start at 13:30 Famotidine (Pepcid Iv) 20 mg Q12 IV ; Start 06/24/17 at 21:00 Heparin Sodium (Porcine) 5000 unit 5,000 unit Q8 SC Last administered on t 14:40; Admin Dose 5,000 UNIT; Start 06/24/17 at 14:00 Azithromycin (Zithromax 500mg/ NS (Pmx)) 250 ml @ 250 mls/hr Q24H IVPB ; Start 06/25/17 at 10:00 Carvedilol (Coreg) 3.125 mg BID PO ; Start 06/24/17 at 21:00 Gabapentin (Neurontin) 300 mg QHS PO ; Start 06/24/17 at 21:00 Tamsulosin HCl (Flomax) 0.4 mg HS PO ; Start 06/24/17 at 21:00 Atorvastatin Calcium (Lipitor) 10 mg DAILY@21 PO ; Start 06/24/17 at 21:00 Diagnostic Test (Pha) (Accu-Chek) 1 ea 02 XX ; Start 06/25/17 at 02:00 Miscellaneous Information 1 ea NOTE XX ; Start 06/24/17 at 15:00 Glucose (Glutose) 15 gm Q15M PRN PO DECREASED GLUCOSE; Start 06/24/17 at 15:00 Glucose (Glutose) 22.5 gm Q15M PRN PO DECREASED GLUCOSE; Start 06/24/17 at 15: 00 Dextrose (D50w Syringe) 25 ml Q15M PRN IV DECREASED GLUCOSE; Start 06/24/17 at 15:00 Dextrose (D50w Syringe) 50 ml Q15M PRN IV DECREASED GLUCOSE; Start 06/24/17 at 15:00 Glucagon (Glucagen) 1 mg Q15M PRN IM DECREASED GLUCOSE; Start 06/24/17 at 15:00 Glucose (Glutose) 15 gm Q15M PRN BUCCAL DECREASED GLUCOSE; Start 06/24/17 at 15 :00 Albuterol 2.5 mg 2.5 mg Q4 PRN HHN SHORTNESS OF BREATH; Start 06/24/17 at 15:00 Cefepime HCl (Maxipime 1gm/50 ml (Pmx)) 50 ml @ 100 mls/hr Q12 IVPB ; Start at 21:00 MARYAN MORALES MD Jun 24, 2017 20:49
[2017-06-24] MEDS: GABAPENTIN 300 MG CAP PO SCH (21:06)
[2017-06-24] MEDS: TAMSULOSIN (SR) 0.4 MG CAP PO SCH (21:06)
[2017-06-24] MEDS: ATORVASTATIN 10 MG TAB PO SCH (21:06)
[2017-06-24] MEDS: FAMOTIDINE 20 MG INJ IV SCH (21:07)
[2017-06-24] MEDS: CEFEPIME 1GM/50 ML (PMX) 50 ML IVPB SCH (21:08)
[2017-06-25] VITALS (29 sets, daily range): BP systolic 103–148; BP diastolic 59–82; PULSE 84–112; RESP 18–35
[2017-06-25 01:45] LABS: ADD UMIC YES; UR ASCORBIC ACID NEGATIVE (NEGATIVE); UR BILIRUBIN (Dip) NEGATIVE (NEGATIVE); UR BLOOD (Dip) 2+ mg/dL (NEGATIVE); UR CLARITY SLIGHTLY CLOUDY (CLEAR); UR COLOR AMBER (YELLOW); UR GLUCOSE (Dip) NEGATIVE (NEGATIVE); UR KETONES (Dip) NEGATIVE (NEGATIVE); UR LEUKOCYTE ESTERASE (Dip) NEGATIVE Leu/ul (NEGATIVE); UR MUCUS FEW /HPF (NONE SEEN); UR NITRITE (Dip) NEGATIVE (NEGATIVE); UR RBC 2 /HPF (0-5); UR TOTAL PROTEIN (Dip) 2+ mg/dl (NEGATIVE); UR UROBILINOGEN (Dip) NEGATIVE (NEGATIVE)
--- NOTE | 2017-06-25 02:09 | CONS ---
DATE OF ADMISSION: 06/24/2017 DATE OF CONSULTATION: 06/24/2017 REASON FOR CONSULTATION: For evaluation of pneumonia and CHF. HISTORY OF PRESENT ILLNESS: Mr. Salas is a pleasant, 61-year- old, white male who came into the emergency room with 2 days' history of shortness of breath and coughing. Upon evaluation, chest x-ray was done which is showing changes consistent with CHF with possibly superimposed pneumonia involving the right lower lobe. According to the patient's family, the patient has been having these symptoms for the last 2 days without any associated chest pain. There is no history of any fever or chills, high- grade fever, any body aches, or myalgias. PAST MEDICAL HISTORY: 1. History of diabetes. 2. History of prior CABG. 3. CHF. 4. Mild obesity. 5. History of hyperlipidemia. 6. BPH. 7. Neuropathy. MEDICATION: 1. Zithromax 5 mg IV daily. 2. The patient also received Rocephin 1 gram x1. 3. Albuterol q.6 hours. 4. Aspirin 325 mg daily. 5. Lipitor 10 mg a day. 6. Coreg 3.125 mg b.i.d. 7. Pepcid 20 mg b.i.d. 8. Lasix 60 mg IV x1 was given. 9. Neurontin 300 mg daily. 10. Flomax 0.4 mg daily. ALLERGIES: NONE. SOCIAL HISTORY: The patient quit smoking 10 years ago, was smoking about a half a pack a day. No history of alcohol or drug abuse. FAMILY HISTORY: He is . He has 3 children. 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 REVIEW OF SYSTEMS: Denies any headache, visual changes, sinus symptoms, postnasal drip, dysphagia odynophagia, sore throat. Shortness of breath has improved. Denies any abdominal pain, nausea, vomiting, melena or hematochezia. Complains of orthopnea. Denies any weight change. Complains of snoring, excessive daytime sleepiness. PHYSICAL EXAMINATION: GENERAL: Elderly male, awake, currently in no distress. VITAL SIGNS: Temperature is 98 degrees Fahrenheit, respiratory rate is 18 per minute, pulse 84 per minute, blood pressure 107/54, O2 sat 96 percent. The patient is currently on BiPAP 15/560 percent FiO2. LABORATORY: Sodium 132, potassium 4, chloride 96, bicarb 26, BUN 11, creatinine 0.9. BNP level 1260, AST of 67, ALT of 0.47, albumin 3.5. Chest x-ray was reviewed, which is showing sternal wires, cardiomegaly with pulmonary edema with possible right lower lobe infiltrate. White count is 17.4, hemoglobin 11.8, platelet count of 193. ASSESSMENT: 1. The patient is admitted for shortness of breath, which is multifactorial, combination of pneumonia with congestive heart failure. 2. History of coronary artery disease with prior coronary artery bypass graft. 3. Hypertension. 4. Diabetes. 5. Possible underlying sleep apnea. RECOMMENDATIONS: Discontinue Rocephin and start the patient on cefepime 1 gram IV q.12 hours. Urinalysis to rule out UTI. Continue current supportive care. Dictated By: Bony Lozoya MD /[email or web address] /Document#: [id number]
[2017-06-25] MEDS: ACCU-CHEK XX SCH ×4 (02:14→19:35)
[2017-06-25] MEDS: HEPARIN 5,000 UNIT/0.5 ML VIAL SC SCH ×4 (06:03→22:40)
[2017-06-25] MEDS: INSULIN ASPART [NOVOLOG] 3 ML PEN SC SCH ×4 (07:46→20:56)
[2017-06-25 08:13] LABS: ABNORMAL IP MESSAGE 1; BASOPHIL # 0.1 10^3/ul (0.0-0.1); BASOPHILS % 0.5 % (0.0-2.0); HEMATOCRIT 34.4 % (42.0-52.0); HEMOGLOBIN 11.1 g/dl (14.0-18.0); LYMPHOCYTES # 1.2 10^3/ul (0.8-2.9); LYMPHOCYTES % 7.5 % (15.0-51.0); MEAN CORPUSCULAR HEMOGLOBIN 28.8 pg (29.0-33.0); MEAN CORPUSCULAR HGB CONC 32.3 g/dl (32.0-37.0); MEAN CORPUSCULAR VOLUME 89.4 fl (82.0-101.0); MEAN PLATELET VOLUME 11.2 fl (7.4-10.4); MONOCYTE # 0.9 10^3/ul (0.3-0.9); MONOCYTES % 6.1 % (0.0-11.0); NEUTROPHILS % 83.6 % (39.0-77.0); PLATELET COUNT 178 10^3/UL (140-415); POSITIVE DIFF @See below; RED BLOOD COUNT 3.85 10^6/ul (4.70-6.10); WHITE BLOOD COUNT 15.5 10^3/ul (4.8-10.8)
[2017-06-25] MEDS: ASPIRIN 81 MG TAB PO SCH (08:26)
[2017-06-25] MEDS: FAMOTIDINE 20 MG INJ IV SCH (08:26)
[2017-06-25] MEDS: CEFEPIME 1GM/50 ML (PMX) 50 ML IVPB SCH ×2 (08:26→20:49)
[2017-06-25 08:47] LABS: ALBUMIN 3.1 g/dl (3.3-4.9); ALBUMIN/GLOBULIN RATIO 0.79; BILIRUBIN,INDIRECT 0.3 mg/dl (0-1.1); BILIRUBIN,TOTAL 0.3 mg/dl (0.2-1.3); CALCIUM 8.4 mg/dl (8.4-10.2); CHOL/HDL RATIO 8.2 RATIO; CREATININE 0.84 mg/dl (0.61-1.24); MAGNESIUM 2.1 mg/dl (1.7-2.5); POTASSIUM 4.1 mmol/L (3.5-5.1)
[2017-06-25] MEDS ORDERED: CEFTRIAXONE 1 GM/50 ML (PMX) 50 ML IVPB SCH (09:00)
--- NOTE | 2017-06-25 11:40 | CONS ---
Date/Time of Note Date/Time of Note DATE: 06/25/17 TIME: 11:37 Assessment/Plan Assessment/Plan Additional Assessment/Plan Assessment and recommendations; 1. Patient admitted with bilateral pneumonia with significant hypoxemia. 100% FiO2 on BiPAP. 3. Prior CABG. 3. History of hypertension. 4. History of diabetes. Transfer the patient [facility]. Obtain a chest x-ray and ABG. Will obtain CT scan of chest with contrast as a PE protocol. Once the above studies are done patient will be reevaluated. I did have a very detailed discussion the patient' s son at bedside and answered all his questions. Consultation Date/Type/Reason Admit Date/Time Jun 24, 2017 at 11:58 Initial Consult Date 06/24/17 Type of Consultation: Pulmonary/critical care Referring Provider: NICOLA EUBANKS MD 24 HR Interval Summary Free Text/Dictation Patient condition remains tenuous. Appears very tachypneic. Requiring 100% FiO2 on BiPAP. Patient denies any chest pain, coughing, wheezing or sputum production. General exam; elderly male, appearing tachypneic and in mild distress. Exam/Review of Systems Vital Signs Vitals Vital Signs Date Time Temp Pulse Resp B/P Pulse Ox O2 Delivery O2 Flow Rate FiO2 06/25/17 10:45 90 06/25/17 10:37 97 100 06/25/17 10:36 102.9 32 145/65 BIPAP Intake and Output 06/24/17 06/24/17 06/25/17 15:00 23:00 07:00 Intake Total 50 ml 50 ml 250 ml Balance 50 ml 50 ml 250 ml Exam HEENT exam; supple neck, no JVD. No lymphadenopathy. Midline trachea. No thyromegaly. Patient is edentulous. Chest exam; diminished breath sounds bilaterally. S1-S2 audible, no murmurs. Regular rhythm. There is a well-healed sternal scar. Abdomen exam; protuberant. No organomegaly. Bowel sounds audible. Extremity exam; no peripheral edema. Pulses 1+ bilaterally. CHILDCARE AIDE exam; no focal deficit. Results Result Diagram: 06/25/17 0745 06/25/17 0725 Results 24 hrs Laboratory Tests Test 06/24/17 12:50 06/24/17 15:03 06/24/17 17:21 06/24/17 21:05 Lactic Acid Level 1.9 1.8 Bedside Glucose 133 109 Test 06/25/17 01:20 06/25/17 07:25 06/25/17 07:44 06/25/17 07:45 Urine Color DELISA Urine Clarity SLIGHTLY CLOUDY A Urine pH 5.0 Urine Specific [place] 1.020 Urine Ketones NEGATIVE Urine Nitrite NEGATIVE Urine Bilirubin NEGATIVE Urine Urobilinogen NEGATIVE Urine Leukocyte Esterase NEGATIVE Urine Microscopic RBC 2 Urine Microscopic WBC 2 Urine Mucus FEW A Urine Hemoglobin 2+ H Urine Glucose NEGATIVE Urine Total Protein 2+ H Sodium Level 130 L Potassium Level 4.1 Chloride Level 97 Carbon Dioxide Level 28 Anion Gap 9 # Blood Urea Nitrogen 21 H Creatinine 0.84 Glucose Level 123 Calcium Level 8.4 Magnesium Level 2.1 Total Bilirubin 0.3 Direct Bilirubin 0.00 Indirect Bilirubin 0.3 Aspartate Amino Transf (AST/SGOT) 64 H Alanine Aminotransferase (ALT/SGPT) 101 H Alkaline Phosphatase 104 Total Protein 7.0 Albumin 3.1 L Globulin 3.90 H Albumin/Globulin Ratio 0.79 Triglycerides Level 318 H Cholesterol Level 74 L LDL Cholesterol, Calculated 1 HDL Cholesterol 9 L Cholesterol/HDL Ratio 8.2 Bedside Glucose 121 White Blood Count 15.5 H Red Blood Count 3.85 L Hemoglobin 11.1 L Hematocrit 34.4 L Mean Corpuscular Volume 89.4 Mean Corpuscular Hemoglobin 28.8 L Mean Corpuscular Hemoglobin Concent 32.3 Red Cell Distribution Width 15.0 H Platelet Count 178 Mean Platelet Volume 11.2 H Neutrophils % 83.6 H Lymphocytes % 7.5 L Monocytes % 6.1 Eosinophils % 0.0 Basophils % 0.5 Nucleated Red Blood Cells % 0.0 Neutrophils # 13.0 H Lymphocytes # 1.2 Monocytes # 0.9 Eosinophils # 0.0 Basophils # 0.1 Nucleated Red Blood Cells # 0.0 Medications Medications Current Medications Ondansetron HCl (Zofran Inj) 4 mg Q6H PRN IV NAUSEA AND/OR VOMITING; Start at 13:30 Aspirin (Aspirin) 81 mg DAILY PO Last administered on 06/25/17 08:26; Admin Dose 81 MG; Start 06/25/17 at 09:00 Acetaminophen (Tylenol Tab) 650 mg Q6H PRN PO PAIN LEVEL 1-3 OR FEVER; Start at 13:30 Famotidine (Pepcid Iv) 20 mg Q12 IV Last administered on 06/25/17 08:26; Admin Dose 20 MG; Start 06/24/17 at 21:00 Heparin Sodium (Porcine) 5000 unit 5,000 unit Q8 SC Last administered on 06:03; Admin Dose 5,000 UNIT; Start 06/24/17 at 14:00 Azithromycin (Zithromax 500mg/ NS (Pmx)) 250 ml @ 250 mls/hr Q24H IVPB ; Start 06/25/17 at 10:00 Carvedilol (Coreg) 3.125 mg BID PO Last administered on 06/25/17 08:26; Admin Dose 3.125 MG; Start 06/24/17 at 21:00 Gabapentin (Neurontin) 300 mg QHS PO Last administered on 06/24/17 21:06; Admin Dose 300 MG; Start 06/24/17 at 21:00 Tamsulosin HCl (Flomax) 0.4 mg HS PO Last administered on 06/24/17 21:06; Admin Dose 0.4 MG; Start 06/24/17 at 21:00 Atorvastatin Calcium (Lipitor) 10 mg DAILY@21 PO Last administered on 21:06; Admin Dose 10 MG; Start 06/24/17 at 21:00 Diagnostic Test (Pha) (Accu-Chek) 1 ea 02 XX Last administered on 06/25/17 02: 14; Admin Dose 1 EA; Start 06/25/17 at 02:00 Miscellaneous Information 1 ea NOTE XX ; Start 06/24/17 at 15:00 Glucose (Glutose) 15 gm Q15M PRN PO DECREASED GLUCOSE; Start 06/24/17 at 15:00 Glucose (Glutose) 22.5 gm Q15M PRN PO DECREASED GLUCOSE; Start 06/24/17 at 15: 00 Dextrose (D50w Syringe) 25 ml Q15M PRN IV DECREASED GLUCOSE; Start 06/24/17 at 15:00 Dextrose (D50w Syringe) 50 ml Q15M PRN IV DECREASED GLUCOSE; Start 06/24/17 at 15:00 Glucagon (Glucagen) 1 mg Q15M PRN IM DECREASED GLUCOSE; Start 06/24/17 at 15:00 Glucose (Glutose) 15 gm Q15M PRN BUCCAL DECREASED GLUCOSE; Start 06/24/17 at 15 :00 Albuterol 2.5 mg 2.5 mg Q4 PRN HHN SHORTNESS OF BREATH; Start 06/24/17 at 15:00 Cefepime HCl (Maxipime 1gm/50 ml (Pmx)) 50 ml @ 100 mls/hr Q12 IVPB Last administered on 06/25/17 08:26; Admin Dose 100 MLS/HR; Start 06/24/17 at 21:00 ABIGAIL MAC Jun 25, 2017 11:39
[2017-06-25] MEDS: AZITHROMYCIN 500MG/NS (PMX) 250 ML IVPB SCH (13:00)
[2017-06-25 13:35] LABS: AADO2 Arterial 548.3 mmHg (7.0-24.0); Allen Test ACCEPTAB; Arterial Base Excess 1.2 mmol/L (-3.0-3); Arterial COHb 0.3 % (0.0-3.0); Arterial Fraction of Oxyhgb 98.1 % (93.0-99.0); Arterial HCO3 25.1 mmol/L (22.0-26.0); Arterial MetHb 0.2 % (0.0-1.5); Arterial Total Hemglobin 11.5 g/dl (12.0-18.0); Blood Gas IEPAP 15/5; Blood Gas PS 10; MODE MASK - BIPAP
[2017-06-25] MEDS ORDERED: FUROSEMIDE 20 MG INJ IV ONE (15:10)
--- NOTE | 2017-06-25 15:14 | CONS ---
Date/Time of Note Date/Time of Note DATE: 06/25/17 TIME: 15:05 Assessment/Plan Assessment/Plan Additional Assessment/Plan Respiratory failure, on BiPAP Pneumonia Acute decompensated systolic and diastolic congestive heart failure CAD with history of CABG Cardiomegaly with ejection fraction 50% SIRS -Patient with worsening shortness of breath and tachypnea requiring BiPAP and transferred to ICU. Patient febrile, chest x-ray with evidence of pulmonary vascular congestion. Patient awaiting CT pulmonary angiogram. Echocardiogram with ejection fraction 50%. Would start gentle IV diuretics as blood pressure permits. Antibiotics as per primary team. Continue pulmonary care. Continue aspirin and statin therapy. Holding parameters on beta-marine. Greater than 31 minutes of critical care time taken for the care of this patient Consultation Date/Type/Reason Admit Date/Time Jun 24, 2017 at 11:58 Initial Consult Date 06/24/17 Type of Consultation: cv Referring Provider: NICOLA EUBANKS MD 24 HR Interval Summary Free Text/Dictation Patient seen and examined, feeling slightly better, denies chest pain, is feeling short of breath. On review of records, transferred from telemetry to ICU secondary to worsening respiratory distress and needed BiPAP Exam/Review of Systems Vital Signs Vitals Vital Signs Date Time Temp Pulse Resp B/P Pulse Ox O2 Delivery O2 Flow Rate FiO2 06/25/17 14:00 90 34 105/71 98 BIPAP 06/25/17 10:37 100 06/25/17 10:36 102.9 Intake and Output 06/24/17 06/24/17 06/25/17 15:00 23:00 07:00 Intake Total 50 ml 50 ml 250 ml Balance 50 ml 50 ml 250 ml Exam On BiPAP, dyspneic, able to follow basic commands, sweating Constitutional: alert, obese Head: normocephalic ENMT: other (On BiPAP) Respiratory: other (Coarse breath sounds bilaterally with scattered crackles and end expiratory wheezing) Cardiovascular: other (S1-S2 heard), regular rate and rhythm Gastrointestinal: bowel sounds, distended, non-tender, soft Extremities: edema Results Result Diagram: 06/25/17 0745 06/25/17 0725 Results 24 hrs Laboratory Tests Test 06/24/17 17:21 06/24/17 21:05 06/25/17 01:20 06/25/17 07:25 Bedside Glucose 133 109 Urine Color DELISA Urine Clarity SLIGHTLY CLOUDY A Urine pH 5.0 Urine Specific [place] 1.020 Urine Ketones NEGATIVE Urine Nitrite NEGATIVE Urine Bilirubin NEGATIVE Urine Urobilinogen NEGATIVE Urine Leukocyte Esterase NEGATIVE Urine Microscopic RBC 2 Urine Microscopic WBC 2 Urine Mucus FEW A Urine Hemoglobin 2+ H Urine Glucose NEGATIVE Urine Total Protein 2+ H Sodium Level 130 L Potassium Level 4.1 Chloride Level 97 Carbon Dioxide Level 28 Anion Gap 9 # Blood Urea Nitrogen 21 H Creatinine 0.84 Glucose Level 123 Hemoglobin A1c 5.6 Calcium Level 8.4 Magnesium Level 2.1 Total Bilirubin 0.3 Direct Bilirubin 0.00 Indirect Bilirubin 0.3 Aspartate Amino Transf (AST/SGOT) 64 H Alanine Aminotransferase (ALT/SGPT) 101 H Alkaline Phosphatase 104 Total Protein 7.0 Albumin 3.1 L Globulin 3.90 H Albumin/Globulin Ratio 0.79 Triglycerides Level 318 H Cholesterol Level 74 L LDL Cholesterol, Calculated 1 HDL Cholesterol 9 L Cholesterol/HDL Ratio 8.2 Test 06/25/17 07:44 06/25/17 07:45 06/25/17 11:32 06/25/17 12:13 Bedside Glucose 121 125 White Blood Count 15.5 H Red Blood Count 3.85 L Hemoglobin 11.1 L Hematocrit 34.4 L Mean Corpuscular Volume 89.4 Mean Corpuscular Hemoglobin 28.8 L Mean Corpuscular Hemoglobin Concent 32.3 Red Cell Distribution Width 15.0 H Platelet Count 178 Mean Platelet Volume 11.2 H Neutrophils % 83.6 H Lymphocytes % 7.5 L Monocytes % 6.1 Eosinophils % 0.0 Basophils % 0.5 Nucleated Red Blood Cells % 0.0 Neutrophils # 13.0 H Lymphocytes # 1.2 Monocytes # 0.9 Eosinophils # 0.0 Basophils # 0.1 Nucleated Red Blood Cells # 0.0 Blood Gas Specimen Source Blood arterial Arterial Blood Date Drawn 06/25/2017 1:10:53 PM Arterial Blood pH (Temp corrected) 7.447 Arterial Blood pCO2 (Temp correct) 37.2 Arterial Blood pO2 (Temp corrected) 127.5 H Arterial Blood HCO3 25.1 Arterial Blood Base Excess 1.2 Arterial Blood Oxygen Saturation 98.6 H Yandel Test ACCEPTAB Arterial Blood Gas Puncture Site Right Radial Arterial Blood Carboxyhemoglobin 0.3 Arterial Blood Methemoglobin 0.2 Blood Gas A-a O2 Differential 548.3 H Oxyhemoglobin Percent 98.1 Total Hemoglobin 11.5 L Blood Gas Temperature 37.0 Blood Gas Respiration Rate 16.0 Blood Gas Actual Respiration Rate 29 Blood Gas Modality MASK - BIPAP FiO2 100.0 Blood Gas Pressure Support 10 Blood Gas IPAP/EPAP Ratio 15/5 Blood Gas Notified Whom TM Blood Gas Notified Time 06/25/2017 1:35:34 PM Test 06/25/17 13:34 Bedside Glucose 122 Medications Medications Current Medications Ondansetron HCl (Zofran Inj) 4 mg Q6H PRN IV NAUSEA AND/OR VOMITING; Start at 13:30 Aspirin (Aspirin) 81 mg DAILY PO Last administered on 06/25/17 08:26; Admin Dose 81 MG; Start 06/25/17 at 09:00 Acetaminophen (Tylenol Tab) 650 mg Q6H PRN PO PAIN LEVEL 1-3 OR FEVER; Start at 13:30 Famotidine (Pepcid Iv) 20 mg Q12 IV Last administered on 06/25/17 08:26; Admin Dose 20 MG; Start 06/24/17 at 21:00 Heparin Sodium (Porcine) 5000 unit 5,000 unit Q8 SC Last administered on 06:03; Admin Dose 5,000 UNIT; Start 06/24/17 at 14:00 Azithromycin (Zithromax 500mg/ NS (Pmx)) 250 ml @ 250 mls/hr Q24H IVPB Last administered on 06/25/17 13:00; Admin Dose 250 MLS/HR; Start 06/25/17 at 10:00 Carvedilol (Coreg) 3.125 mg BID PO Last administered on 06/25/17 08:26; Admin Dose 3.125 MG; Start 06/24/17 at 21:00 Gabapentin (Neurontin) 300 mg QHS PO Last administered on 06/24/17 21:06; Admin Dose 300 MG; Start 06/24/17 at 21:00 Tamsulosin HCl (Flomax) 0.4 mg HS PO Last administered on 06/24/17 21:06; Admin Dose 0.4 MG; Start 06/24/17 at 21:00 Atorvastatin Calcium (Lipitor) 10 mg DAILY@21 PO Last administered on 21:06; Admin Dose 10 MG; Start 06/24/17 at 21:00 Diagnostic Test (Pha) (Accu-Chek) 1 ea 02 XX Last administered on 06/25/17 02: 14; Admin Dose 1 EA; Start 06/25/17 at 02:00 Miscellaneous Information 1 ea NOTE XX ; Start 06/24/17 at 15:00 Glucose (Glutose) 15 gm Q15M PRN PO DECREASED GLUCOSE; Start 06/24/17 at 15:00 Glucose (Glutose) 22.5 gm Q15M PRN PO DECREASED GLUCOSE; Start 06/24/17 at 15: 00 Dextrose (D50w Syringe) 25 ml Q15M PRN IV DECREASED GLUCOSE; Start 06/24/17 at 15:00 Dextrose (D50w Syringe) 50 ml Q15M PRN IV DECREASED GLUCOSE; Start 06/24/17 at 15:00 Glucagon (Glucagen) 1 mg Q15M PRN IM DECREASED GLUCOSE; Start 06/24/17 at 15:00 Glucose (Glutose) 15 gm Q15M PRN BUCCAL DECREASED GLUCOSE; Start 06/24/17 at 15 :00 Albuterol 2.5 mg 2.5 mg Q4 PRN HHN SHORTNESS OF BREATH; Start 06/24/17 at 15:00 Cefepime HCl (Maxipime 1gm/50 ml (Pmx)) 50 ml @ 100 mls/hr Q12 IVPB Last administered on 06/25/17 08:26; Admin Dose 100 MLS/HR; Start 06/24/17 at 21:00 Dennis Lopez DO Jun 25, 2017 15:14
--- NOTE | 2017-06-25 16:27 | PN ---
Date/Time of Note Date/Time of Note DATE: 06/25/17 TIME: 16:18 Assessment/Plan VTE Prophylaxis VTE Prophylaxis Intervention: heparin Lines/Catheters IV Catheter Type (from Nrsg): Peripheral IV Assessment/Plan Assessment/Plan 1. Sepsis secondary to right lower lobe pneumonia - Patient has been non compliant on BIPAP and requiring high FIO2 requirements since admission. Was transferred to ICU this am - Pulmonology consulted for BIPAP management and appreciate recommendations. Awaiting CTA to rule out PE and repeat CXR. - AB.44/37.2/127.5 98% - Was febrile this am and blood cultures obtained - WBC trending downward, 15K today 2. Community acquired pneumonia - On antibiotics - On BIPAP and will wean as tolerated - Repeat CXR pending 3. Acute decompensated diastolic heart failure - Cardiology on board and consult appreciated. - Started on gentle IV diuretics if BP permissible - Continue BB, aspirin, and statin 4. hyponatremia - Most likely secondary to hypervolemia - Will continue to monitor and workup if no resolution once fluid balance improves 5. transaminitis - Most likely secondary to congestion - Will continue to monitor 6. Diabetes Mellitus - hold PO home medications - A1c 5.6 - mild ISS 7. h/o CAD s/p CABG 10 years ago >30 mins of critical care time was spent with this patient. Subjective 24 Hr Interval Summary Free Text/Dictation Patient was transferred to ICU this am due to being non complaint over night on BIPAP and requiring 100% FIO2 to maintain saturations. Denies any new complaints and appears to be tolerating BIPAP well this am. Exam/Review of Systems Vital Signs Vitals Vital Signs Date Time Temp Pulse Resp B/P Pulse Ox O2 Delivery O2 Flow Rate FiO2 06/25/17 14:00 90 34 105/71 98 BIPAP 06/25/17 10:37 100 06/25/17 10:36 102.9 Intake and Output 06/24/17 06/24/17 06/25/17 15:00 23:00 07:00 Intake Total 50 ml 50 ml 250 ml Balance 50 ml 50 ml 250 ml Exam General: alert, awake, on BIPAP tolerating well HEENT: NC/AT, PERRL, EOMI CVS: regular rate and rhythm, no murmurs Lungs: Coarse breath sounds diffusely with crackles at bases. Abd: soft, NT, protuberant, no rebound or guarding Ext: 1+ edema LE b/l, no cyanosis, ecchymosis, clubbing Results Result Diagram: 06/25/17 0745 06/25/17 0725 Results 24 hrs Laboratory Tests Test 06/24/17 17:21 06/24/17 21:05 06/25/17 01:20 06/25/17 07:25 Bedside Glucose 133 109 Urine Color DELISA Urine Clarity SLIGHTLY CLOUDY A Urine pH 5.0 Urine Specific [place] 1.020 Urine Ketones NEGATIVE Urine Nitrite NEGATIVE Urine Bilirubin NEGATIVE Urine Urobilinogen NEGATIVE Urine Leukocyte Esterase NEGATIVE Urine Microscopic RBC 2 Urine Microscopic WBC 2 Urine Mucus FEW A Urine Hemoglobin 2+ H Urine Glucose NEGATIVE Urine Total Protein 2+ H Sodium Level 130 L Potassium Level 4.1 Chloride Level 97 Carbon Dioxide Level 28 Anion Gap 9 # Blood Urea Nitrogen 21 H Creatinine 0.84 Glucose Level 123 Hemoglobin A1c 5.6 Calcium Level 8.4 Magnesium Level 2.1 Total Bilirubin 0.3 Direct Bilirubin 0.00 Indirect Bilirubin 0.3 Aspartate Amino Transf (AST/SGOT) 64 H Alanine Aminotransferase (ALT/SGPT) 101 H Alkaline Phosphatase 104 Total Protein 7.0 Albumin 3.1 L Globulin 3.90 H Albumin/Globulin Ratio 0.79 Triglycerides Level 318 H Cholesterol Level 74 L LDL Cholesterol, Calculated 1 HDL Cholesterol 9 L Cholesterol/HDL Ratio 8.2 Test 06/25/17 07:44 06/25/17 07:45 06/25/17 11:32 06/25/17 12:13 Bedside Glucose 121 125 White Blood Count 15.5 H Red Blood Count 3.85 L Hemoglobin 11.1 L Hematocrit 34.4 L Mean Corpuscular Volume 89.4 Mean Corpuscular Hemoglobin 28.8 L Mean Corpuscular Hemoglobin Concent 32.3 Red Cell Distribution Width 15.0 H Platelet Count 178 Mean Platelet Volume 11.2 H Neutrophils % 83.6 H Lymphocytes % 7.5 L Monocytes % 6.1 Eosinophils % 0.0 Basophils % 0.5 Nucleated Red Blood Cells % 0.0 Neutrophils # 13.0 H Lymphocytes # 1.2 Monocytes # 0.9 Eosinophils # 0.0 Basophils # 0.1 Nucleated Red Blood Cells # 0.0 Blood Gas Specimen Source Blood arterial Arterial Blood Date Drawn 06/25/2017 1:10:53 PM Arterial Blood pH (Temp corrected) 7.447 Arterial Blood pCO2 (Temp correct) 37.2 Arterial Blood pO2 (Temp corrected) 127.5 H Arterial Blood HCO3 25.1 Arterial Blood Base Excess 1.2 Arterial Blood Oxygen Saturation 98.6 H Yandel Test ACCEPTAB Arterial Blood Gas Puncture Site Right Radial Arterial Blood Carboxyhemoglobin 0.3 Arterial Blood Methemoglobin 0.2 Blood Gas A-a O2 Differential 548.3 H Oxyhemoglobin Percent 98.1 Total Hemoglobin 11.5 L Blood Gas Temperature 37.0 Blood Gas Respiration Rate 16.0 Blood Gas Actual Respiration Rate 29 Blood Gas Modality MASK - BIPAP FiO2 100.0 Blood Gas Pressure Support 10 Blood Gas IPAP/EPAP Ratio 15 Blood Gas Notified Whom TM Blood Gas Notified Time 06/25/2017 1:35:34 PM Test 06/25/17 13:34 Bedside Glucose 122 Medications Medications Current Medications Ondansetron HCl (Zofran Inj) 4 mg Q6H PRN IV NAUSEA AND/OR VOMITING; Start at 13:30 Aspirin (Aspirin) 81 mg DAILY PO Last administered on 06/25/17 08:26; Admin Dose 81 MG; Start 06/25/17 at 09:00 Acetaminophen (Tylenol Tab) 650 mg Q6H PRN PO PAIN LEVEL 1-3 OR FEVER; Start at 13:30 Famotidine (Pepcid Iv) 20 mg Q12 IV Last administered on 06/25/17 08:26; Admin Dose 20 MG; Start 06/24/17 at 21:00 Heparin Sodium (Porcine) 5000 unit 5,000 unit Q8 SC Last administered on 06:03; Admin Dose 5,000 UNIT; Start 06/24/17 at 14:00 Azithromycin (Zithromax 500mg/ NS (Pmx)) 250 ml @ 250 mls/hr Q24H IVPB Last administered on 06/25/17 13:00; Admin Dose 250 MLS/HR; Start 06/25/17 at 10:00 Carvedilol (Coreg) 3.125 mg BID PO Last administered on 06/25/17 08:26; Admin Dose 3.125 MG; Start 06/24/17 at 21:00 Gabapentin (Neurontin) 300 mg QHS PO Last administered on 06/24/17 21:06; Admin Dose 300 MG; Start 06/24/17 at 21:00 Tamsulosin HCl (Flomax) 0.4 mg HS PO Last administered on 06/24/17 21:06; Admin Dose 0.4 MG; Start 06/24/17 at 21:00 Atorvastatin Calcium (Lipitor) 10 mg DAILY@21 PO Last administered on 21:06; Admin Dose 10 MG; Start 06/24/17 at 21:00 Diagnostic Test (Pha) (Accu-Chek) 1 ea 02 XX Last administered on 06/25/17 02: 14; Admin Dose 1 EA; Start 06/25/17 at 02:00 Miscellaneous Information 1 ea NOTE XX ; Start 06/24/17 at 15:00 Glucose (Glutose) 15 gm Q15M PRN PO DECREASED GLUCOSE; Start 06/24/17 at 15:00 Glucose (Glutose) 22.5 gm Q15M PRN PO DECREASED GLUCOSE; Start 06/24/17 at 15: 00 Dextrose (D50w Syringe) 25 ml Q15M PRN IV DECREASED GLUCOSE; Start 06/24/17 at 15:00 Dextrose (D50w Syringe) 50 ml Q15M PRN IV DECREASED GLUCOSE; Start 06/24/17 at 15:00 Glucagon (Glucagen) 1 mg Q15M PRN IM DECREASED GLUCOSE; Start 06/24/17 at 15:00 Glucose (Glutose) 15 gm Q15M PRN BUCCAL DECREASED GLUCOSE; Start 06/24/17 at 15 :00 Albuterol 2.5 mg 2.5 mg Q4 PRN HHN SHORTNESS OF BREATH; Start 06/24/17 at 15:00 Cefepime HCl (Maxipime 1gm/50 ml (Pmx)) 50 ml @ 100 mls/hr Q12 IVPB Last administered on 06/25/17 08:26; Admin Dose 100 MLS/HR; Start 06/24/17 at 21:00 NICOLA EUBANKS MD Jun 25, 2017 16:27 NICOLA EUBANKS MD Jun 25, 2017 16:27
[2017-06-25] MEDS ORDERED: SOD CHLORIDE 0.9% 100 ML ONE (17:32)
[2017-06-25] MEDS ORDERED: IOHEXOL 100 ML ONE (17:32)
[2017-06-25] MEDS ORDERED: IOHEXOL 350MG/ML 50 ML BTL ONE (17:32)
[2017-06-25] MEDS: ATORVASTATIN 10 MG TAB PO SCH (20:49)
[2017-06-25] MEDS: GABAPENTIN 300 MG CAP PO SCH (20:49)
[2017-06-25] MEDS: TAMSULOSIN (SR) 0.4 MG CAP PO SCH (20:50)
[2017-06-25] MEDS: FAMOTIDINE 20 MG TAB PO SCH (20:51)
--- NOTE | 2017-06-25 23:57 | RADRPT ---
PROCEDURE: CTA chest pulmonary angiography. CLINICAL INDICATION: Dyspnea. TECHNIQUE: CT angiography of the chest was performed after the uneventful intravenous administratio n of 125 cc of Omnipaque 350. Coronal and sagittal reformations were performed. 3-D/multiplanar re formations were performed by the technologist and an independent workstation. The total exam CTDI = 50.7, 20.03 mGy and the DLP equals 790.44 mGy-cm. One or more of the following dose reduction techniques were used: - Automated exposure control. - Adjustment of the mA and/or kV according to patient size. - Use of iterative reconstruction technique. COMPARISON: Chest x-ray dated 06/24/2017. FINDINGS: Pulmonary angiogram: There are no emboli through the level of the subsegmental pulmonary arteries. The main pulmonary artery is normal in caliber and there is no evidence of right heart strain. Lungs, pleura, airways, and thoracic inlet: There is dense consolidation throughout the left lower lobe and involving a large majority of the right lower lobe. There is patchy consolidation in the li ngula, medial right middle lobe, and medial right upper lobe. There is no effusion or pneumothorax. There is mild paraseptal emphysema. There is a 17 mm nodule in the lateral right upper lobe with sub tle spiculation at the margins. The tracheobronchial tree is patent and normal in course and caliber . Cardiovascular system, mediastinum, and lymphatics: The heart is normal in size without pericardial thickening or effusion. There are multivessel coronary artery calcifications. There has been prior m edian sternotomy and CABG. There are atherosclerotic changes of the aorta, which is nonaneurysmal. T here is no axillary adenopathy. There is paratracheal, prevascular, AP window, bilateral hilar, and subcarinal adenopathy with a dominant subcarinal node measuring 23 mm in short axis. Visualized upper abdomen: The spleen is at the upper limits of normal in size measuring 13.9 cm. Th ere is a moderate fat containing epigastric hernia. Musculoskeletal system and soft tissues: There is mild to moderate multilevel degenerative enthesop athy. There are no concerning osseous lesions. The soft tissues are unremarkable. IMPRESSION: 1. No pulmonary emboli through the level of the subsegmental pulmonary arteries. 2. Extensive dense consolidation in both lower lobes, left greater than right, with additional patc hy consolidation in the lingula and medial right middle and right upper lobes. These findings are co nsistent with multifocal pneumonia. 3. Suspicious 17 mm nodule with subtle spiculation at the margins, suspicious for neoplasm. 4. Nonspecific mediastinal and bilateral hilar adenopathy. 5. Multivessel coronary artery calcifications and atherosclerotic changes of the aorta. 6. Borderline splenomegaly. 7. Moderate fat containing epigastric hernia. RPTAT: HLBP .Joel Phan MD, MD Date Time Electronically viewed and signed by .Joel Phan MD, MD on 06/25/2017 23:56 .P/
[2017-06-26] VITALS (40 sets, daily range): BP systolic 100–136; BP diastolic 48–90; PULSE 76–114; RESP 16–40
[2017-06-26] MEDS: ACCU-CHEK XX SCH ×3 (02:00→14:45)
[2017-06-26 05:40] LABS: BASOPHILS % 0.2 % (0.0-2.0); HEMOGLOBIN 8.6 g/dl (14.0-18.0); LYMPHOCYTES # 1.9 10^3/ul (0.8-2.9); LYMPHOCYTES % 14.6 % (15.0-51.0); MEAN CORPUSCULAR HEMOGLOBIN 28.6 pg (29.0-33.0); MEAN CORPUSCULAR HGB CONC 31.9 g/dl (32.0-37.0); MEAN CORPUSCULAR VOLUME 89.7 fl (82.0-101.0); MEAN PLATELET VOLUME 11.7 fl (7.4-10.4); MONOCYTE # 1.2 10^3/ul (0.3-0.9); NEUTROPHIL # 9.5 10^3/ul (1.6-7.5); NEUTROPHILS % 73.5 % (39.0-77.0); PLATELET COUNT 178 10^3/UL (140-415); POSITIVE DIFF @See below; RED BLOOD COUNT 3.01 10^6/ul (4.70-6.10); RED CELL DISTRIBUTION WIDTH 15.3 % (11.5-14.5); WHITE BLOOD COUNT 12.9 10^3/ul (4.8-10.8)
[2017-06-26] MEDS ORDERED: FUROSEMIDE 20 MG INJ IV SCH (06:00)
[2017-06-26] MEDS: HEPARIN 5,000 UNIT/0.5 ML VIAL SC SCH ×3 (06:12→21:52)
[2017-06-26 06:27] LABS: ALBUMIN 2.8 g/dl (3.3-4.9); ALBUMIN/GLOBULIN RATIO 0.82; BILIRUBIN,INDIRECT 0.2 mg/dl (0-1.1); BILIRUBIN,TOTAL 0.2 mg/dl (0.2-1.3); CALCIUM 8.5 mg/dl (8.4-10.2); CREATININE 0.69 mg/dl (0.61-1.24); MAGNESIUM 2.2 mg/dl (1.7-2.5); POTASSIUM 3.9 mmol/L (3.5-5.1); TOTAL PROTEIN 6.2 g/dl (6.1-8.1)
[2017-06-26 08:07] LABS: AADO2 Arterial 610.1 mmHg (7.0-24.0); Allen Test ACCEPTAB; Arterial Base Excess 1.9 mmol/L (-3.0-3); Arterial COHb 0.3 % (0.0-3.0); Arterial Fraction of Oxyhgb 92.8 % (93.0-99.0); Arterial HCO3 25.6 mmol/L (22.0-26.0); Arterial MetHb 0.1 % (0.0-1.5); Arterial Total Hemglobin 10.2 g/dl (12.0-18.0); MODE MASK - NRB
[2017-06-26] MEDS: ASPIRIN 81 MG TAB PO SCH (08:39)
[2017-06-26] MEDS: CEFEPIME 1GM/50 ML (PMX) 50 ML IVPB SCH ×2 (08:40→21:51)
[2017-06-26] MEDS: FAMOTIDINE 20 MG TAB PO SCH ×2 (08:40→21:50)
[2017-06-26] MEDS: INSULIN ASPART [NOVOLOG] 3 ML PEN SC SCH ×4 (08:41→21:00)
--- NOTE | 2017-06-26 10:05 | CONS ---
Date/Time of Note Date/Time of Note DATE: 06/26/17 TIME: 10:03 Assessment/Plan Assessment/Plan Additional Assessment/Plan Respiratory failure, on BiPAP Pneumonia Acute decompensated systolic and diastolic congestive heart failure CAD with history of CABG Cardiomegaly with ejection fraction 50% Sepsis -Patient status post CT chest with evidence of extensive multifocal pneumonia. Antibiotics as per infectious disease. Will decrease Lasix to daily, continue gentle diuretics as blood pressure and renal function permits. Consultation Date/Type/Reason Admit Date/Time Jun 24, 2017 at 11:58 Initial Consult Date 06/24/17 Type of Consultation: cv Referring Provider: NICOLA EUBANKS MD 24 HR Interval Summary Free Text/Dictation Patient currently off BiPAP and on nonrebreather. Shortness of breath is better. Denies chest pain Exam/Review of Systems Vital Signs Vitals Vital Signs Date Time Temp Pulse Resp B/P Pulse Ox O2 Delivery O2 Flow Rate FiO2 06/26/17 08:00 107 06/26/17 07:00 100.2 33 110/90 BIPAP 06/26/17 06:00 97 06/26/17 05:04 70 06/25/17 19:30 15.0 Intake and Output 06/25/17 06/25/17 06/26/17 15:00 23:00 07:00 Intake Total 290 ml 170 ml Balance 290 ml 170 ml Exam On nonrebreather facemask, able to answer questions but dyspneic Constitutional: alert Head: normocephalic Respiratory: other (Coarse breath sounds bilaterally with scattered crackles, mild and expiratory wheezing) Cardiovascular: other (S1-S2 heard), regular rate and rhythm Gastrointestinal: bowel sounds, non-tender, soft Extremities: edema Results Result Diagram: 06/26/17 0459 06/26/17 0459 Results 24 hrs Laboratory Tests Test 06/25/17 11:32 06/25/17 12:13 06/25/17 13:34 06/25/17 16:59 Blood Gas Specimen Source Blood arterial Arterial Blood Date Drawn 06/25/2017 1:10:53 PM Arterial Blood pH (Temp corrected) 7.447 Arterial Blood pCO2 (Temp correct) 37.2 Arterial Blood pO2 (Temp corrected) 127.5 H Arterial Blood HCO3 25.1 Arterial Blood Base Excess 1.2 Arterial Blood Oxygen Saturation 98.6 H Yandel Test ACCEPTAB Arterial Blood Gas Puncture Site Right Radial Arterial Blood Carboxyhemoglobin 0.3 Arterial Blood Methemoglobin 0.2 Blood Gas A-a O2 Differential 548.3 H Oxyhemoglobin Percent 98.1 Total Hemoglobin 11.5 L Blood Gas Temperature 37.0 Blood Gas Respiration Rate 16.0 Blood Gas Actual Respiration Rate 29 Blood Gas Modality MASK - BIPAP FiO2 100.0 Blood Gas Pressure Support 10 Blood Gas IPAP/EPAP Ratio 15/5 Blood Gas Notified Whom TM Blood Gas Notified Time 06/25/2017 1:35:34 PM Bedside Glucose 125 122 119 Test 06/25/17 19:58 06/25/17 20:54 06/26/17 04:59 06/26/17 07:30 Bedside Glucose 161 142 White Blood Count 12.9 H Red Blood Count 3.01 #L Hemoglobin 8.6 #L Hematocrit 27.0 #L Mean Corpuscular Volume 89.7 Mean Corpuscular Hemoglobin 28.6 L Mean Corpuscular Hemoglobin Concent 31.9 L Red Cell Distribution Width 15.3 H Platelet Count 178 Mean Platelet Volume 11.7 H Neutrophils % 73.5 Lymphocytes % 14.6 L Monocytes % 9.0 Eosinophils % 0.0 Basophils % 0.2 Nucleated Red Blood Cells % 0.0 Neutrophils # 9.5 H Lymphocytes # 1.9 Monocytes # 1.2 H Eosinophils # 0.0 Basophils # 0.0 Nucleated Red Blood Cells # 0.0 Sodium Level 137 Potassium Level 3.9 Chloride Level 99 Carbon Dioxide Level 32 H Anion Gap 10 Blood Urea Nitrogen 35 #H Creatinine 0.69 Glucose Level 127 Calcium Level 8.5 Magnesium Level 2.2 Total Bilirubin 0.2 Direct Bilirubin 0.00 Indirect Bilirubin 0.2 Aspartate Amino Transf (AST/SGOT) 70 H Alanine Aminotransferase (ALT/SGPT) 82 H Alkaline Phosphatase 96 Total Protein 6.2 Albumin 2.8 L Globulin 3.40 H Albumin/Globulin Ratio 0.82 Blood Gas Specimen Source Blood arterial Arterial Blood Date Drawn 06/26/2017 7:58:19 AM Arterial Blood pH (Temp corrected) 7.465 H Arterial Blood pCO2 (Temp correct) 36.4 Arterial Blood pO2 (Temp corrected) 66.5 L Arterial Blood HCO3 25.6 Arterial Blood Base Excess 1.9 Arterial Blood Oxygen Saturation 93.2 L Yandel Test ACCEPTAB Arterial Blood Gas Puncture Site Left Radial Arterial Blood Carboxyhemoglobin 0.3 Arterial Blood Methemoglobin 0.1 Blood Gas A-a O2 Differential 610.1 H Oxyhemoglobin Percent 92.8 L Total Hemoglobin 10.2 L Blood Gas Temperature 37.0 Blood Gas Modality MASK - NRB FiO2 100.0 Blood Gas Notified Whom TM Blood Gas Notified Time 06/26/2017 8:07:02 AM Test 06/26/17 08:24 Bedside Glucose 147 Medications Medications Current Medications Ondansetron HCl (Zofran Inj) 4 mg Q6H PRN IV NAUSEA AND/OR VOMITING; Start at 13:30 Aspirin (Aspirin) 81 mg DAILY PO Last administered on 06/26/17 08:39; Admin Dose 81 MG; Start 06/25/17 at 09:00 Acetaminophen (Tylenol Tab) 650 mg Q6H PRN PO PAIN LEVEL 1-3 OR FEVER Last administered on 06/25/17 20:58; Admin Dose 650 MG; Start 06/24/17 at 13:30 Heparin Sodium (Porcine) 5000 unit 5,000 unit Q8 SC Last administered on 06:12; Admin Dose 5,000 UNIT; Start 06/24/17 at 14:00 Azithromycin (Zithromax 500mg/ NS (Pmx)) 250 ml @ 250 mls/hr Q24H IVPB Last administered on 06/25/17 13:00; Admin Dose 250 MLS/HR; Start 06/25/17 at 10:00 Carvedilol (Coreg) 3.125 mg BID PO Last administered on 06/26/17 08:40; Admin Dose 3.125 MG; Start 06/24/17 at 21:00 Gabapentin (Neurontin) 300 mg QHS PO Last administered on 06/25/17 20:49; Admin Dose 300 MG; Start 06/24/17 at 21:00 Tamsulosin HCl (Flomax) 0.4 mg HS PO Last administered on 06/25/17 20:50; Admin Dose 0.4 MG; Start 06/24/17 at 21:00 Atorvastatin Calcium (Lipitor) 10 mg DAILY@21 PO Last administered on 20:49; Admin Dose 10 MG; Start 06/24/17 at 21:00 Diagnostic Test (Pha) (Accu-Chek) 1 ea 02 XX Last administered on 06/25/17 02: 14; Admin Dose 1 EA; Start 06/25/17 at 02:00 Miscellaneous Information 1 ea NOTE XX ; Start 06/24/17 at 15:00 Glucose (Glutose) 15 gm Q15M PRN PO DECREASED GLUCOSE; Start 06/24/17 at 15:00 Glucose (Glutose) 22.5 gm Q15M PRN PO DECREASED GLUCOSE; Start 06/24/17 at 15: 00 Dextrose (D50w Syringe) 25 ml Q15M PRN IV DECREASED GLUCOSE; Start 06/24/17 at 15:00 Dextrose (D50w Syringe) 50 ml Q15M PRN IV DECREASED GLUCOSE; Start 06/24/17 at 15:00 Glucagon (Glucagen) 1 mg Q15M PRN IM DECREASED GLUCOSE; Start 06/24/17 at 15:00 Glucose (Glutose) 15 gm Q15M PRN BUCCAL DECREASED GLUCOSE; Start 06/24/17 at 15 :00 Albuterol 2.5 mg 2.5 mg Q4 PRN HHN SHORTNESS OF BREATH; Start 06/24/17 at 15:00 Cefepime HCl (Maxipime 1gm/50 ml (Pmx)) 50 ml @ 100 mls/hr Q12 IVPB Last administered on 06/26/17 08:40; Admin Dose 100 MLS/HR; Start 06/24/17 at 21:00 Famotidine (Pepcid) 20 mg BID PO Last administered on 06/26/17 08:40; Admin Dose 20 MG; Start 06/25/17 at 21:00 Dennis Lopez DO Jun 26, 2017 10:05
[2017-06-26] MEDS: AZITHROMYCIN 500MG/NS (PMX) 250 ML IVPB SCH (10:52)
--- NOTE | 2017-06-26 13:33 | CONS ---
Date/Time of Note Date/Time of Note DATE: 06/26/17 TIME: 13:29 Consult Date/Type/Reason Admit Date/Time Jun 24, 2017 at 11:58 Initial Consult Date 06/24/17 Type of Consultation: Pulmonary Ordering Provider: NICOLA EUBANKS MD Subjective Awake alert, continues noninvasive positive pressure ventilation. Objective Vital Signs Date Time Temp Pulse Resp B/P Pulse Ox O2 Delivery O2 Flow Rate FiO2 06/26/17 12:00 94 06/26/17 11:00 93 70 06/26/17 10:30 30 06/26/17 10:00 128/66 06/26/17 08:00 Non Rebreather 15.0 06/26/17 07:00 100.2 Intake and Output 06/25/17 06/25/17 06/26/17 15:00 23:00 07:00 Intake Total 290 ml 170 ml Balance 290 ml 170 ml Exam GENERAL: Obese Pakistani gentleman appears comfortable at rest on BiPAP. VITAL SIGNS: per chart NECK: Supple. No JVD or lymphadenopathy. CARDIAC EXAM: S1, S2. No added sounds or murmurs. CHEST: Diminished air entry both lung bases. ABDOMEN: Soft, nontender. No guarding or rebound. Obese EXTREMITIES: No cyanosis, clubbing or edema +2. NEUROLOGIC: Generalized weakness. No focal deficits. Results/Medications Result Diagram: 06/26/17 0459 06/26/17 0459 Results 24 hrs Laboratory Tests Test 06/25/17 13:34 06/25/17 16:59 06/25/17 19:58 06/25/17 20:54 Bedside Glucose 122 119 161 142 Test 06/26/17 04:59 06/26/17 07:30 06/26/17 08:24 06/26/17 10:56 White Blood Count 12.9 H Red Blood Count 3.01 #L Hemoglobin 8.6 #L Hematocrit 27.0 #L Mean Corpuscular Volume 89.7 Mean Corpuscular Hemoglobin 28.6 L Mean Corpuscular Hemoglobin Concent 31.9 L Red Cell Distribution Width 15.3 H Platelet Count 178 Mean Platelet Volume 11.7 H Neutrophils % 73.5 Lymphocytes % 14.6 L Monocytes % 9.0 Eosinophils % 0.0 Basophils % 0.2 Nucleated Red Blood Cells % 0.0 Neutrophils # 9.5 H Lymphocytes # 1.9 Monocytes # 1.2 H Eosinophils # 0.0 Basophils # 0.0 Nucleated Red Blood Cells # 0.0 Sodium Level 137 Potassium Level 3.9 Chloride Level 99 Carbon Dioxide Level 32 H Anion Gap 10 Blood Urea Nitrogen 35 #H Creatinine 0.69 Glucose Level 127 Calcium Level 8.5 Magnesium Level 2.2 Total Bilirubin 0.2 Direct Bilirubin 0.00 Indirect Bilirubin 0.2 Aspartate Amino Transf (AST/SGOT) 70 H Alanine Aminotransferase (ALT/SGPT) 82 H Alkaline Phosphatase 96 Total Protein 6.2 Albumin 2.8 L Globulin 3.40 H Albumin/Globulin Ratio 0.82 Blood Gas Specimen Source Blood arterial Arterial Blood Date Drawn 06/26/2017 7:58:19 AM Arterial Blood pH (Temp corrected) 7.465 H Arterial Blood pCO2 (Temp correct) 36.4 Arterial Blood pO2 (Temp corrected) 66.5 L Arterial Blood HCO3 25.6 Arterial Blood Base Excess 1.9 Arterial Blood Oxygen Saturation 93.2 L Yandel Test ACCEPTAB Arterial Blood Gas Puncture Site Left Radial Arterial Blood Carboxyhemoglobin 0.3 Arterial Blood Methemoglobin 0.1 Blood Gas A-a O2 Differential 610.1 H Oxyhemoglobin Percent 92.8 L Total Hemoglobin 10.2 L Blood Gas Temperature 37.0 Blood Gas Modality MASK - NRB FiO2 100.0 Blood Gas Notified Whom TM Blood Gas Notified Time 06/26/2017 8:07:02 AM Bedside Glucose 147 171 Test 06/26/17 12:03 Bedside Glucose 157 Medications Current Medications Ondansetron HCl (Zofran Inj) 4 mg Q6H PRN IV NAUSEA AND/OR VOMITING; Start at 13:30 Aspirin (Aspirin) 81 mg DAILY PO Last administered on 06/26/17 08:39; Admin Dose 81 MG; Start 06/25/17 at 09:00 Acetaminophen (Tylenol Tab) 650 mg Q6H PRN PO PAIN LEVEL 1-3 OR FEVER Last administered on 06/25/17 20:58; Admin Dose 650 MG; Start 06/24/17 at 13:30 Heparin Sodium (Porcine) 5000 unit 5,000 unit Q8 SC Last administered on 06:12; Admin Dose 5,000 UNIT; Start 06/24/17 at 14:00 Azithromycin (Zithromax 500mg/ NS (Pmx)) 250 ml @ 250 mls/hr Q24H IVPB Last administered on 06/26/17 10:52; Admin Dose 250 MLS/HR; Start 06/25/17 at 10:00 Carvedilol (Coreg) 3.125 mg BID PO Last administered on 06/26/17 08:40; Admin Dose 3.125 MG; Start 06/24/17 at 21:00 Gabapentin (Neurontin) 300 mg QHS PO Last administered on 06/25/17 20:49; Admin Dose 300 MG; Start 06/24/17 at 21:00 Tamsulosin HCl (Flomax) 0.4 mg HS PO Last administered on 06/25/17 20:50; Admin Dose 0.4 MG; Start 06/24/17 at 21:00 Atorvastatin Calcium (Lipitor) 10 mg DAILY@21 PO Last administered on 20:49; Admin Dose 10 MG; Start 06/24/17 at 21:00 Diagnostic Test (Pha) (Accu-Chek) 1 ea 02 XX Last administered on 06/25/17 02: 14; Admin Dose 1 EA; Start 06/25/17 at 02:00 Miscellaneous Information 1 ea NOTE XX ; Start 06/24/17 at 15:00 Glucose (Glutose) 15 gm Q15M PRN PO DECREASED GLUCOSE; Start 06/24/17 at 15:00 Glucose (Glutose) 22.5 gm Q15M PRN PO DECREASED GLUCOSE; Start 06/24/17 at 15: 00 Dextrose (D50w Syringe) 25 ml Q15M PRN IV DECREASED GLUCOSE; Start 06/24/17 at 15:00 Dextrose (D50w Syringe) 50 ml Q15M PRN IV DECREASED GLUCOSE; Start 06/24/17 at 15:00 Glucagon (Glucagen) 1 mg Q15M PRN IM DECREASED GLUCOSE; Start 06/24/17 at 15:00 Glucose (Glutose) 15 gm Q15M PRN BUCCAL DECREASED GLUCOSE; Start 06/24/17 at 15 :00 Albuterol 2.5 mg 2.5 mg Q4 PRN HHN SHORTNESS OF BREATH; Start 06/24/17 at 15:00 Cefepime HCl (Maxipime 1gm/50 ml (Pmx)) 50 ml @ 100 mls/hr Q12 IVPB Last administered on 06/26/17 08:40; Admin Dose 100 MLS/HR; Start 06/24/17 at 21:00 Famotidine (Pepcid) 20 mg BID PO Last administered on 06/26/17 08:40; Admin Dose 20 MG; Start 06/25/17 at 21:00 Furosemide (Lasix) 20 mg DAILY IV ; Start 06/27/17 at 09:00 Assessment/Plan Chief Complaint/Hosp Course Assessment 1. Acute hypoxemic and hypercapnic respiratory failure 2. Bibasilar pneumonia likely community-acquired pneumonia. 3. Probable underlying obstructive sleep apnea 4. Possible COPD component Plan 1. Continue current antibiotic coverage 2. Encourage noninvasive positive pressure ventilation 3. Bronchodilators 4. Will consider steroid trial if not improving 5. Encourage out of bed Disposition Continue ICU care. Problems: IGOR WEBER MD, [facility] Jun 26, 2017 13:32
--- NOTE | 2017-06-26 15:12 | PN ---
Date/Time of Note Date/Time of Note DATE: 06/26/17 TIME: 15:04 Assessment/Plan VTE Prophylaxis VTE Prophylaxis Intervention: SCD's Lines/Catheters IV Catheter Type (from [facility]): Saline Lock Urinary Cath still in place: No Assessment/Plan Assessment/Plan 1. Sepsis secondary to right lower lobe pneumonia - Patient is tolerating full face mask BIPAP. Doing well and stable to transfer back to telemetry. - Pulmonology on board and recommendations appreciated. No PE on CTA but spiculated nodule seen which will need further evaluation once more stable. - WBC trending downward, 12K today 2. Multifocal pneumonia - On antibiotics - On BIPAP and will wean as tolerated - CTA showed extensive dense consolidation in both lower lobes, left greater than right, with additional patchy consolidation in the lingula and medial right middle and right upper lobes. 3. 17mm nodule with spiculation - Will need to further evaluation once more stable since suspicious for neoplasm. 4. Nonspecific mediastinal and bilateral hilar adenopathy. 5. Acute decompensated diastolic heart failure - Cardiology on board and consult appreciated. - Daily IV diuretics - Continue BB, aspirin, and statin 6. hyponatremia- improved - Most likely secondary to hypervolemia, normalizing - Will continue to monitor 7. transaminitis - Most likely secondary to congestion - Will continue to monitor 8. Diabetes Mellitus - hold PO home medications - A1c 5.6 - mild ISS 9. h/o CAD s/p CABG 10 years ago >30 mins of critical care time was spent with this patient. Subjective 24 Hr Interval Summary Free Text/Dictation Patient on BIPAP and tolerating well. Has no new complaints and new acute overnight events. Exam/Review of Systems Vital Signs Vitals Vital Signs Date Time Temp Pulse Resp B/P Pulse Ox O2 Delivery O2 Flow Rate FiO2 06/26/17 13:30 93 32 06/26/17 13:15 100 06/26/17 13:00 116/48 BIPAP 06/26/17 12:00 97.9 06/26/17 11:00 70 06/26/17 08:00 15.0 Intake and Output 06/25/17 06/25/17 06/26/17 15:00 23:00 07:00 Intake Total 290 ml 170 ml Balance 290 ml 170 ml Exam General: alert, awake, on full face mask BIPAP, NAD HEENT: NC/AT, PERRL, EOMI CVS: regular rate and rhythm, no murmurs Lungs: Coarse breath sounds diffusely, diminished at bases Abd: soft, NT, protuberant, no rebound or guarding Ext: 1+ edema LE b/l, no cyanosis, ecchymosis, clubbing Results Result Diagram: 06/26/17 0459 06/26/17 0459 Results 24 hrs Laboratory Tests Test 06/25/17 16:59 06/25/17 19:58 06/25/17 20:54 06/26/17 04:59 Bedside Glucose 119 161 142 White Blood Count 12.9 H Red Blood Count 3.01 #L Hemoglobin 8.6 #L Hematocrit 27.0 #L Mean Corpuscular Volume 89.7 Mean Corpuscular Hemoglobin 28.6 L Mean Corpuscular Hemoglobin Concent 31.9 L Red Cell Distribution Width 15.3 H Platelet Count 178 Mean Platelet Volume 11.7 H Neutrophils % 73.5 Lymphocytes % 14.6 L Monocytes % 9.0 Eosinophils % 0.0 Basophils % 0.2 Nucleated Red Blood Cells % 0.0 Neutrophils # 9.5 H Lymphocytes # 1.9 Monocytes # 1.2 H Eosinophils # 0.0 Basophils # 0.0 Nucleated Red Blood Cells # 0.0 Sodium Level 137 Potassium Level 3.9 Chloride Level 99 Carbon Dioxide Level 32 H Anion Gap 10 Blood Urea Nitrogen 35 #H Creatinine 0.69 Glucose Level 127 Calcium Level 8.5 Magnesium Level 2.2 Total Bilirubin 0.2 Direct Bilirubin 0.00 Indirect Bilirubin 0.2 Aspartate Amino Transf (AST/SGOT) 70 H Alanine Aminotransferase (ALT/SGPT) 82 H Alkaline Phosphatase 96 Total Protein 6.2 Albumin 2.8 L Globulin 3.40 H Albumin/Globulin Ratio 0.82 Test 06/26/17 07:30 06/26/17 08:24 06/26/17 10:56 06/26/17 12:03 Blood Gas Specimen Source Blood arterial Arterial Blood Date Drawn 06/26/2017 7:58:19 AM Arterial Blood pH (Temp corrected) 7.465 H Arterial Blood pCO2 (Temp correct) 36.4 Arterial Blood pO2 (Temp corrected) 66.5 L Arterial Blood HCO3 25.6 Arterial Blood Base Excess 1.9 Arterial Blood Oxygen Saturation 93.2 L Yandel Test ACCEPTAB Arterial Blood Gas Puncture Site Left Radial Arterial Blood Carboxyhemoglobin 0.3 Arterial Blood Methemoglobin 0.1 Blood Gas A-a O2 Differential 610.1 H Oxyhemoglobin Percent 92.8 L Total Hemoglobin 10.2 L Blood Gas Temperature 37.0 Blood Gas Modality MASK - NRB FiO2 100.0 Blood Gas Notified Whom TM Blood Gas Notified Time 06/26/2017 8:07:02 AM Bedside Glucose 147 171 157 Medications Medications Current Medications Ondansetron HCl (Zofran Inj) 4 mg Q6H PRN IV NAUSEA AND/OR VOMITING; Start at 13:30 Aspirin (Aspirin) 81 mg DAILY PO Last administered on 06/26/17 08:39; Admin Dose 81 MG; Start 06/25/17 at 09:00 Acetaminophen (Tylenol Tab) 650 mg Q6H PRN PO PAIN LEVEL 1-3 OR FEVER Last administered on 06/25/17 20:58; Admin Dose 650 MG; Start 06/24/17 at 13:30 Heparin Sodium (Porcine) 5000 unit 5,000 unit Q8 SC Last administered on 14:44; Admin Dose 5,000 UNIT; Start 06/24/17 at 14:00 Azithromycin (Zithromax 500mg/ NS (Pmx)) 250 ml @ 250 mls/hr Q24H IVPB Last administered on 06/26/17 10:52; Admin Dose 250 MLS/HR; Start 06/25/17 at 10:00 Carvedilol (Coreg) 3.125 mg BID PO Last administered on 06/26/17 08:40; Admin Dose 3.125 MG; Start 06/24/17 at 21:00 Gabapentin (Neurontin) 300 mg QHS PO Last administered on 06/25/17 20:49; Admin Dose 300 MG; Start 06/24/17 at 21:00 Tamsulosin HCl (Flomax) 0.4 mg HS PO Last administered on 06/25/17 20:50; Admin Dose 0.4 MG; Start 06/24/17 at 21:00 Atorvastatin Calcium (Lipitor) 10 mg DAILY@21 PO Last administered on 20:49; Admin Dose 10 MG; Start 06/24/17 at 21:00 Diagnostic Test (Pha) (Accu-Chek) 1 ea 02 XX Last administered on 06/25/17 02: 14; Admin Dose 1 EA; Start 06/25/17 at 02:00 Miscellaneous Information 1 ea NOTE XX ; Start 06/24/17 at 15:00 Glucose (Glutose) 15 gm Q15M PRN PO DECREASED GLUCOSE; Start 06/24/17 at 15:00 Glucose (Glutose) 22.5 gm Q15M PRN PO DECREASED GLUCOSE; Start 06/24/17 at 15: 00 Dextrose (D50w Syringe) 25 ml Q15M PRN IV DECREASED GLUCOSE; Start 06/24/17 at 15:00 Dextrose (D50w Syringe) 50 ml Q15M PRN IV DECREASED GLUCOSE; Start 06/24/17 at 15:00 Glucagon (Glucagen) 1 mg Q15M PRN IM DECREASED GLUCOSE; Start 06/24/17 at 15:00 Glucose (Glutose) 15 gm Q15M PRN BUCCAL DECREASED GLUCOSE; Start 06/24/17 at 15 :00 Albuterol 2.5 mg 2.5 mg Q4 PRN HHN SHORTNESS OF BREATH; Start 06/24/17 at 15:00 Cefepime HCl (Maxipime 1gm/50 ml (Pmx)) 50 ml @ 100 mls/hr Q12 IVPB Last administered on 06/26/17 08:40; Admin Dose 100 MLS/HR; Start 06/24/17 at 21:00 Famotidine (Pepcid) 20 mg BID PO Last administered on 06/26/17 08:40; Admin Dose 20 MG; Start 06/25/17 at 21:00 Furosemide (Lasix) 20 mg DAILY IV ; Start 06/27/17 at 09:00 NICOLA EUBANKS MD Jun 26, 2017 15:12
[2017-06-26] MEDS: TAMSULOSIN (SR) 0.4 MG CAP PO SCH (21:50)
[2017-06-26] MEDS: GABAPENTIN 300 MG CAP PO SCH (21:50)
[2017-06-26] MEDS: ATORVASTATIN 10 MG TAB PO SCH (21:50)
[2017-06-26 22:58] LABS: AADO2 Arterial 320.1 mmHg (7.0-24.0); Allen Test ACCEPTAB; Arterial Base Excess 7.1 mmol/L (-3.0-3); Arterial COHb 0.3 % (0.0-3.0); Arterial Fraction of Oxyhgb 96.7 % (93.0-99.0); Arterial HCO3 31.8 mmol/L (22.0-26.0); Arterial MetHb 0.1 % (0.0-1.5); Arterial Total Hemglobin 8.2 g/dl (12.0-18.0); Blood Gas IEPAP 15/5; Blood Gas PS 10; MODE MASK - BIPAP
[2017-06-27] VITALS (61 sets, daily range): BP systolic 98–126; BP diastolic 51–68; PULSE 69–94; RESP 14–34
[2017-06-27] MEDS: ACCU-CHEK XX SCH (02:00)
[2017-06-27 05:30] LABS: ABNORMAL IP MESSAGE 1; MEAN CORPUSCULAR HEMOGLOBIN 29.2 pg (29.0-33.0); MEAN CORPUSCULAR HGB CONC 32.9 g/dl (32.0-37.0); MEAN PLATELET VOLUME 11.7 fl (7.4-10.4); NUCLEATED RED BLOOD CELLS% 0.2 /100WBC (0.0-0.0); PLATELET COUNT 212 10^3/UL (140-415); POSITIVE DIFF @See below; RED BLOOD COUNT 2.36 10^6/ul (4.70-6.10); RED CELL DISTRIBUTION WIDTH 15.3 % (11.5-14.5); WHITE BLOOD COUNT 16.9 10^3/ul (4.8-10.8)
[2017-06-27] MEDS: HEPARIN 5,000 UNIT/0.5 ML VIAL SC SCH (05:50)
[2017-06-27 06:01] LABS: CALCIUM 8.4 mg/dl (8.4-10.2); CREATININE 0.59 mg/dl (0.61-1.24); MAGNESIUM 2.2 mg/dl (1.7-2.5); PHOSPHORUS 3.6 mg/dl (2.5-4.9); POTASSIUM 3.8 mmol/L (3.5-5.1)
[2017-06-27 06:47] LABS: HEMOGLOBIN 6.9 g/dl (14.0-18.0)
[2017-06-27] MEDS: INSULIN ASPART [NOVOLOG] 3 ML PEN SC SCH ×4 (07:35→21:00)
[2017-06-27 07:41] LABS: AADO2 Arterial 197.1 mmHg (7.0-24.0); Allen Test ACCEPTAB; Arterial Base Excess 5.7 mmol/L (-3.0-3); Arterial COHb 0.3 % (0.0-3.0); Arterial Fraction of Oxyhgb 93.9 % (93.0-99.0); Arterial HCO3 30.2 mmol/L (22.0-26.0); Arterial MetHb 0.3 % (0.0-1.5); Arterial Total Hemglobin 7.7 g/dl (12.0-18.0); Blood Gas IEPAP 15/5; Blood Gas PS 10; MODE MASK - BIPAP
[2017-06-27 07:42] LABS: MONOCYTES % (M) 2 % (0-11); MYELOCYTES % (M) 1 % (0-0); PLATELET ESTIMATE NORMAL; POLYCHROMASIA 3+ (0-0); REACTIVE LYMPHOCYTES% (M) 2 % (0-0); TOXIC GRANULATION 1+ (0-0)
--- NOTE | 2017-06-27 07:47 | RADRPT ---
PROCEDURE: Chest 1 views. CLINICAL INDICATION: Shortness of breath. TECHNIQUE: AP views of the chest was obtained. COMPARISON: June 24, [address] June 25, 2017 FINDINGS: The heart is large. Central pulmonary vascular congestion and interstitial prominence in both lungs continues to be identified. Retrocardiac opacity is stable. Right middle and lower lobe infiltrates have increased. 17 mm right upper lobe lobe lung nodule continues to be seen. Osseous structures ar e intact. IMPRESSION: Cardiomegaly . Central pulmonary vascular congestion and interstitial prominence in both lungs. Stable retrocardiac opacity that may reflect left lower lobe atelectasis or infiltrate combined with small pleural effusion. Interval increase in right middle and lower lobe infiltrates. Stable 17 mm right upper lobe lung nodule. RPTAT: AA .Enrique Chow MD, Date Time Electronically viewed and signed by .Enrique Chow MD, on 06/27/2017 07:47 .P/
[2017-06-27] MEDS: ASPIRIN 81 MG TAB PO SCH (08:23)
[2017-06-27] MEDS: FAMOTIDINE 20 MG TAB PO SCH ×2 (08:23→21:19)
[2017-06-27] MEDS: FUROSEMIDE 20 MG INJ IV SCH (08:23)
[2017-06-27] MEDS: CEFEPIME 1GM/50 ML (PMX) 50 ML IVPB SCH ×2 (08:23→21:20)
[2017-06-27 09:13] LABS: HEMOGLOBIN 6.8 g/dl (14.0-18.0)
--- NOTE | 2017-06-27 09:27 | PN ---
Date/Time of Note Date/Time of Note DATE: 06/27/17 TIME: 09:26 Assessment/Plan VTE Prophylaxis VTE Prophylaxis Intervention: SCD's Lines/Catheters IV C[facility]ter Type (from [facility]): Saline Lock Urinary Cath still in place: No Assessment/Plan Assessment/Plan Respiratory failure, on BiPAP Pneumonia Acute decompensated systolic and diastolic congestive heart failure CAD with history of CABG Cardiomegaly with ejection fraction 50% Sepsis -Patient status post CT chest with evidence of extensive multifocal pneumonia. Antibiotics as per infectious disease. on Lasix to daily, continue gentle diuretics as blood pressure and renal function permits. -pulmonary involved Subjective 24 Hr Interval Summary Free Text/Dictation the patient stable overnight Exam/Review of Systems Vital Signs Vitals Vital Signs Date Time Temp Pulse Resp B/P Pulse Ox O2 Delivery O2 Flow Rate FiO2 06/27/17 08:30 80 31 118/62 100 High Flow 06/27/17 08:10 100 06/27/17 08:00 97.7 06/26/17 17:40 15.0 Intake and Output 06/26/17 06/26/17 06/27/17 15:00 23:00 07:00 Intake Total 600 ml 250 ml 700 ml Output Total 500 ml 900 ml 450 ml Balance 100 ml -650 ml 250 ml Results Result Diagram: 06/27/17 0807 06/27/17 0503 Results 24 hrs Laboratory Tests Test 06/26/17 10:56 06/26/17 12:03 06/26/17 17:16 06/26/17 20:29 Bedside Glucose 171 157 144 147 Test 06/26/17 22:32 06/27/17 05:03 06/27/17 07:00 06/27/17 08:07 Blood Gas Specimen Source Blood arterial Blood arterial Arterial Blood Date Drawn 06/26/2017 10:45:42 PM 06/27/2017 7:12:32 AM Arterial Blood pH (Temp corrected) 7.455 H 7.453 H Arterial Blood pCO2 (Temp correct) 46.2 H 44.1 Arterial Blood pO2 (Temp corrected) 93.1 73.6 L Arterial Blood HCO3 31.8 H 30.2 H Arterial Blood Base Excess 7.1 H 5.7 H Arterial Blood Oxygen Saturation 97.1 94.5 L Yandel Test ACCEPTAB ACCEPTAB Arterial Blood Gas Puncture Site Right Radial Right Radial Arterial Blood Carboxyhemoglobin 0.3 0.3 Arterial Blood Methemoglobin 0.1 0.3 Blood Gas A-a O2 Differential 320.1 H 197.1 H Oxyhemoglobin Percent 96.7 93.9 Total Hemoglobin 8.2 L 7.7 L Blood Gas Temperature 37.0 37.0 Blood Gas Respiration Rate 16.0 16.0 Blood Gas Actual Respiration Rate 28 32 Blood Gas Modality MASK - BIPAP MASK - BIPAP FiO2 65.0 45.0 Blood Gas Pressure Support 10 10 Blood Gas IPAP/EPAP Ratio 18/02 18/02 Blood Gas Notified Whom MACEY TM Blood Gas Notified Time 06/26/2017 10:57:55 PM 06/27/2017 7:41:14 AM White Blood Count 16.9 #H Red Blood Count 2.36 #L Hemoglobin 6.9 *L 6.8 *L Hematocrit 21.0 #L 21.0 L Mean Corpuscular Volume 89.0 Mean Corpuscular Hemoglobin 29.2 Mean Corpuscular Hemoglobin Concent 32.9 Red Cell Distribution Width 15.3 H Platelet Count 212 Mean Platelet Volume 11.7 H Neutrophils % Segmented Neutrophils % (Manual) 56 Band Neutrophils % (Manual) 9 H Lymphocytes % Lymphocytes % (Manual) 30 Reactive Lymphocytes % (Manual) 2 H Monocytes % Monocytes % (Manual) 2 Eosinophils % Basophils % Myelocytes % (Manual) 1 H Nucleated Red Blood Cells % 0.2 H Neutrophils # Neutrophils # (Manual) 9.7 H Band Neutrophils # 1.5 H Absolute Lymphocytes (Manual) 5.0 H Lymphocytes # Reactive Lymphocytes # 0.3 H Monocytes # Absolute Monocytes (Manual) 0.3 Eosinophils # Basophils # Myelocytes # 0.1 H Nucleated Red Blood Cells # Toxic Granulation 1+ Platelet Estimate NORMAL Polychromasia 3+ Sodium Level 141 Potassium Level 3.8 Chloride Level 102 Carbon Dioxide Level 30 Anion Gap 13 Blood Urea Nitrogen 24 #H Creatinine 0.59 L Glucose Level 125 Calcium Level 8.4 Phosphorus Level 3.6 Magnesium Level 2.2 Test 06/27/17 08:20 Bedside Glucose 126 Medications Medications Current Medications Ondansetron HCl (Zofran Inj) 4 mg Q6H PRN IV NAUSEA AND/OR VOMITING; Start at 13:30 Aspirin (Aspirin) 81 mg DAILY PO Last administered on 06/27/17t 08:23; Admin Dose 81 MG; Start 06/25/17 at 09:00 Acetaminophen (Tylenol Tab) 650 mg Q6H PRN PO PAIN LEVEL 1-3 OR FEVER Last administered on 06/25/17 20:58; Admin Dose 650 MG; Start 06/24/17 at 13:30 Heparin Sodium (Porcine) 5000 unit 5,000 unit Q8 SC Last administered on 05:50; Admin Dose 5,000 UNIT; Start 06/24/17 at 14:00 Azithromycin (Zithromax 500mg/ NS (Pmx)) 250 ml @ 250 mls/hr Q24H IVPB Last administered on 06/26/17 10:52; Admin Dose 250 MLS/HR; Start 06/25/17 at 10:00 Carvedilol (Coreg) 3.125 mg BID PO Last administered on 06/27/17 08:23; Admin Dose 3.125 MG; Start 06/24/17 at 21:00 Gabapentin (Neurontin) 300 mg QHS PO Last administered on 06/26/17 21:50; Admin Dose 300 MG; Start 06/24/17 at 21:00 Tamsulosin HCl (Flomax) 0.4 mg HS PO Last administered on 06/26/17 21:50; Admin Dose 0.4 MG; Start 06/24/17 at 21:00 Atorvastatin Calcium (Lipitor) 10 mg DAILY@21 PO Last administered on 21:50; Admin Dose 10 MG; Start 06/24/17 at 21:00 Diagnostic Test (Pha) (Accu-Chek) 1 ea 02 XX Last administered on 06/25/17 02: 14; Admin Dose 1 EA; Start 06/25/17 at 02:00 Miscellaneous Information 1 ea NOTE XX ; Start 06/24/17 at 15:00 Glucose (Glutose) 15 gm Q15M PRN PO DECREASED GLUCOSE; Start 06/24/17 at 15:00 Glucose (Glutose) 22.5 gm Q15M PRN PO DECREASED GLUCOSE; Start 06/24/17 at 15: 00 Dextrose (D50w Syringe) 25 ml Q15M PRN IV DECREASED GLUCOSE; Start 06/24/17 at 15:00 Dextrose (D50w Syringe) 50 ml Q15M PRN IV DECREASED GLUCOSE; Start 06/24/17 at 15:00 Glucagon (Glucagen) 1 mg Q15M PRN IM DECREASED GLUCOSE; Start 06/24/17 at 15:00 Glucose (Glutose) 15 gm Q15M PRN BUCCAL DECREASED GLUCOSE; Start 06/24/17 at 15 :00 Albuterol 2.5 mg 2.5 mg Q4 PRN HHN SHORTNESS OF BREATH; Start 06/24/17 at 15:00 Cefepime HCl (Maxipime 1gm/50 ml (Pmx)) 50 ml @ 100 mls/hr Q12 IVPB Last administered on 06/27/17 08:23; Admin Dose 100 MLS/HR; Start 06/24/17 at 21:00 Famotidine (Pepcid) 20 mg BID PO Last administered on 06/27/17 08:23; Admin Dose 20 MG; Start 06/25/17 at 21:00 Furosemide 20 mg 20 mg DAILY IV Last administered on 06/27/17 08:23; Admin Dose 20 MG; Start 06/27/17 at 09:00 Pantoprazole/ Sodium Chloride (Protonix Iv/NS) 100 ml @ 10 mls/hr Q10H IV ; Start 06/27/17 at 11:00 CRISTEL WHITING MD Jun 27, 2017 09:27
--- NOTE | 2017-06-27 10:08 | PN ---
Date/Time of Note Date/Time of Note DATE: 06/27/17 TIME: 10:08 Assessment/Plan VTE Prophylaxis VTE Prophylaxis Intervention: contraindicated Lines/Catheters IV Catheter Type (from [facility]): Saline Lock Urinary Cath still in place: No Assessment/Plan Assessment/Plan 1. Sepsis secondary to right lower lobe pneumonia - improving - Patient on high flow O2 this am and appears to tolerating well. Saturating 92 % - Pulmonology on board and recommendations appreciated. - WBC 16K this am - Blood cultures negative 2. Multifocal pneumonia - On antibiotics and nebs PRN - BIPAP as needed - CTA showed extensive dense consolidation in both lower lobes, left greater than right, with additional patchy consolidation in the lingula and medial right middle and right upper lobes. 3. ? Upper GI bleed - Patient had episode of dark tarry stool. H/H dropped from 8.6 to 6.9. Will transfuse - PPI drip started and GI consulted. appreciate recommendations 4. Nonspecific mediastinal and bilateral hilar adenopathy. 5. Acute decompensated diastolic heart failure - Cardiology on board and consult appreciated. - Daily IV diuretics - Continue BB, aspirin, and statin 6. hyponatremia- resolved - Most likely secondary to hypervolemia - Will continue to monitor 7. transaminitis - Most likely secondary to congestion - Will continue to monitor 8. Diabetes Mellitus - hold PO home medications - A1c 5.6 - mild ISS 9. h/o CAD s/p CABG 10 years ago 10. 17mm nodule with spiculation - Will need to further evaluation as outpatient. >35 mins of critical care time was spent with this patient and family, answering all questions and concerns. Subjective 24 Hr Interval Summary Free Text/Dictation Patient doing well and has no new complaints. Tolerating high flow NC but is experiencing some dryness of nares. Per nursing, patient had episode of dark tarry stool and drop in hgb. Patient denies any hematemesis or abdominal pain, dizziness, chest pain, or worsening shortness of breath. Exam/Review of Systems Vital Signs Vitals Vital Signs Date Time Temp Pulse Resp B/P Pulse Ox O2 Delivery O2 Flow Rate FiO2 06/27/17 08:30 80 31 118/62 100 High Flow 06/27/17 08:10 100 06/27/17 08:00 97.7 06/26/17 17:40 15.0 Intake and Output 9/06/26/17 06/27/17 15:00 23:00 07:00 Intake Total 600 ml 250 ml 700 ml Output Total 500 ml 900 ml 450 ml Balance 100 ml -650 ml 250 ml Exam General: alert, awake, NAD, on high flow O2 HEENT: NC/AT, PERRL, EOMI CVS: regular rate and rhythm, no murmurs Lungs: Coarse breath sounds diffusely, diminished at bases Abd: soft, NT, protuberant, no rebound or guarding Ext: trace edema LE b/l, no cyanosis, ecchymosis, clubbing Skin: pale, no rashes Results Result Diagram: 06/27/17 0807 06/27/17 0503 Results 24 hrs Laboratory Tests Test 06/26/17 10:56 06/26/17 12:03 06/26/17 17:16 06/26/17 20:29 Bedside Glucose 171 157 144 147 Test 06/26/17 22:32 06/27/17 05:03 06/27/17 07:00 06/27/17 08:07 Blood Gas Specimen Source Blood arterial Blood arterial Arterial Blood Date Drawn 06/26/2017 10:45:42 PM 06/27/2017 7:12:32 AM Arterial Blood pH (Temp corrected) 7.455 H 7.453 H Arterial Blood pCO2 (Temp correct) 46.2 H 44.1 Arterial Blood pO2 (Temp corrected) 93.1 73.6 L Arterial Blood HCO3 31.8 H 30.2 H Arterial Blood Base Excess 7.1 H 5.7 H Arterial Blood Oxygen Saturation 97.1 94.5 L Yandel Test ACCEPTAB ACCEPTAB Arterial Blood Gas Puncture Site Right Radial Right Radial Arterial Blood Carboxyhemoglobin 0.3 0.3 Arterial Blood Methemoglobin 0.1 0.3 Blood Gas A-a O2 Differential 320.1 H 197.1 H Oxyhemoglobin Percent 96.7 93.9 Total Hemoglobin 8.2 L 7.7 L Blood Gas Temperature 37.0 37.0 Blood Gas Respiration Rate 16.0 16.0 Blood Gas Actual Respiration Rate 28 32 Blood Gas Modality MASK - BIPAP MASK - BIPAP FiO2 65.0 45.0 Blood Gas Pressure Support 10 10 Blood Gas IPAP/EPAP Ratio 18/02 18/02 Blood Gas Notified Whom MACEY OBRIEN Blood Gas Notified Time 06/26/2017 10:57:55 PM 06/27/2017 7:41:14 AM White Blood Count 16.9 #H Red Blood Count 2.36 #L Hemoglobin 6.9 *L 6.8 *L Hematocrit 21.0 #L 21.0 L Mean Corpuscular Volume 89.0 Mean Corpuscular Hemoglobin 29.2 Mean Corpuscular Hemoglobin Concent 32.9 Red Cell Distribution Width 15.3 H Platelet Count 212 Mean Platelet Volume 11.7 H Neutrophils % Segmented Neutrophils % (Manual) 56 Band Neutrophils % (Manual) 9 H Lymphocytes % Lymphocytes % (Manual) 30 Reactive Lymphocytes % (Manual) 2 H Monocytes % Monocytes % (Manual) 2 Eosinophils % Basophils % Myelocytes % (Manual) 1 H Nucleated Red Blood Cells % 0.2 H Neutrophils # Neutrophils # (Manual) 9.7 H Band Neutrophils # 1.5 H Absolute Lymphocytes (Manual) 5.0 H Lymphocytes # Reactive Lymphocytes # 0.3 H Monocytes # Absolute Monocytes (Manual) 0.3 Eosinophils # Basophils # Myelocytes # 0.1 H Nucleated Red Blood Cells # Toxic Granulation 1+ Platelet Estimate NORMAL Polychromasia 3+ Sodium Level 141 Potassium Level 3.8 Chloride Level 102 Carbon Dioxide Level 30 Anion Gap 13 Blood Urea Nitrogen 24 #H Creatinine 0.59 L Glucose Level 125 Calcium Level 8.4 Phosphorus Level 3.6 Magnesium Level 2.2 Test 06/27/17 08:20 Bedside Glucose 126 Medications Medications Current Medications Ondansetron HCl (Zofran Inj) 4 mg Q6H PRN IV NAUSEA AND/OR VOMITING; Start at 13:30 Aspirin (Aspirin) 81 mg DAILY PO Last administered on 06/27/17 08:23; Admin Dose 81 MG; Start 06/25/17 at 09:00 Acetaminophen (Tylenol Tab) 650 mg Q6H PRN PO PAIN LEVEL 1-3 OR FEVER Last administered on 06/25/17 20:58; Admin Dose 650 MG; Start 06/24/17 at 13:30 Heparin Sodium (Porcine) 5000 unit 5,000 unit Q8 SC Last administered on 05:50; Admin Dose 5,000 UNIT; Start 06/24/17 at 14:00 Azithromycin (Zithromax 500mg/ NS (Pmx)) 250 ml @ 250 mls/hr Q24H IVPB Last administered on 06/26/17 10:52; Admin Dose 250 MLS/HR; Start 06/25/17 at 10:00 Carvedilol (Coreg) 3.125 mg BID PO Last administered on 06/27/17 08:23; Admin Dose 3.125 MG; Start 06/24/17 at 21:00 Gabapentin (Neurontin) 300 mg QHS PO Last administered on 06/26/17 21:50; Admin Dose 300 MG; Start 06/24/17 at 21:00 Tamsulosin HCl (Flomax) 0.4 mg HS PO Last administered on 06/26/17 21:50; Admin Dose 0.4 MG; Start 06/24/17 at 21:00 Atorvastatin Calcium (Lipitor) 10 mg DAILY@21 PO Last administered on 21:50; Admin Dose 10 MG; Start 06/24/17 at 21:00 Diagnostic Test (Pha) (Accu-Chek) 1 ea 02 XX Last administered on 06/25/17 02: 14; Admin Dose 1 EA; Start 06/25/17 at 02:00 Miscellaneous Information 1 ea NOTE XX ; Start 06/24/17 at 15:00 Glucose (Glutose) 15 gm Q15M PRN PO DECREASED GLUCOSE; Start 06/24/17 at 15:00 Glucose (Glutose) 22.5 gm Q15M PRN PO DECREASED GLUCOSE; Start 06/24/17 at 15: 00 Dextrose (D50w Syringe) 25 ml Q15M PRN IV DECREASED GLUCOSE; Start 06/24/17 at 15:00 Dextrose (D50w Syringe) 50 ml Q15M PRN IV DECREASED GLUCOSE; Start 06/24/17 at 15:00 Glucagon (Glucagen) 1 mg Q15M PRN IM DECREASED GLUCOSE; Start 06/24/17 at 15:00 Glucose (Glutose) 15 gm Q15M PRN BUCCAL DECREASED GLUCOSE; Start 06/24/17 at 15 :00 Albuterol 2.5 mg 2.5 mg Q4 PRN HHN SHORTNESS OF BREATH; Start 06/24/17 at 15:00 Cefepime HCl (Maxipime 1gm/50 ml (Pmx)) 50 ml @ 100 mls/hr Q12 IVPB Last administered on 06/27/17 08:23; Admin Dose 100 MLS/HR; Start 06/24/17 at 21:00 Famotidine (Pepcid) 20 mg BID PO Last administered on 06/27/17 08:23; Admin Dose 20 MG; Start 06/25/17 at 21:00 Furosemide 20 mg 20 mg DAILY IV Last administered on 06/27/17 08:23; Admin Dose 20 MG; Start 06/27/17 at 09:00 Pantoprazole/ Sodium Chloride (Protonix Iv/NS) 100 ml @ 10 mls/hr Q10H IV ; Start 06/27/17 at 11:00 NICOLA EUBANKS MD Jun 27, 2017 10:08
[2017-06-27] MEDS: AZITHROMYCIN 500MG/NS (PMX) 250 ML IVPB SCH (10:49)
--- NOTE | 2017-06-27 11:25 | CONS ---
Date/Time of Note Date/Time of Note DATE: 06/27/17 TIME: 11:21 Consult Date/Type/Reason Admit Date/Time Jun 24, 2017 at 11:58 Initial Consult Date 06/24/17 Type of Consultation: Pulmonary Ordering Provider: NICOLA EUBANKS MD Subjective The patient appears comfortable this morning. Continues high flow O2. Ambulating out of bed. Objective Vital Signs Date Time Temp Pulse Resp B/P Pulse Ox O2 Delivery O2 Flow Rate FiO2 06/27/17 08:30 80 31 118/62 100 High Flow 06/27/17 08:10 100 06/27/17 08:00 97.7 06/26/17 17:40 15.0 Intake and Output 06/26/17 06/26/17 06/27/17 15:00 23:00 07:00 Intake Total 600 ml 250 ml 700 ml Output Total 500 ml 900 ml 450 ml Balance 100 ml -650 ml 250 ml Exam GENERAL: Obese Vietnamese gentleman appears comfortable on Vapotherm oxygen. VITAL SIGNS: per chart NECK: Supple. No JVD or lymphadenopathy. CARDIAC EXAM: S1, S2. No added sounds or murmurs. CHEST: Diminished air entry both lung bases. ABDOMEN: Soft, nontender. No guarding or rebound. Obese EXTREMITIES: No cyanosis, clubbing or edema +2. NEUROLOGIC: Generalized weakness. No focal deficits. Results/Medications Result Diagram: 06/27/17 0807 06/27/17 0503 Results 24 hrs Chest x-ray shows right lower lobe infiltrate Laboratory Tests Test 06/26/17 12:03 06/26/17 17:16 06/26/17 20:29 06/26/17 22:32 Bedside Glucose 157 144 147 Blood Gas Specimen Source Blood arterial Arterial Blood Date Drawn 06/26/2017 10:45:42 PM Arterial Blood pH (Temp corrected) 7.455 H Arterial Blood pCO2 (Temp correct) 46.2 H Arterial Blood pO2 (Temp corrected) 93.1 Arterial Blood HCO3 31.8 H Arterial Blood Base Excess 7.1 H Arterial Blood Oxygen Saturation 97.1 Yandel Test ACCEPTAB Arterial Blood Gas Puncture Site Right Radial Arterial Blood Carboxyhemoglobin 0.3 Arterial Blood Methemoglobin 0.1 Blood Gas A-a O2 Differential 320.1 H Oxyhemoglobin Percent 96.7 Total Hemoglobin 8.2 L Blood Gas Temperature 37.0 Blood Gas Respiration Rate 16.0 Blood Gas Actual Respiration Rate 28 Blood Gas Modality MASK - BIPAP FiO2 65.0 Blood Gas Pressure Support 10 Blood Gas IPAP/EPAP Ratio 15/ Blood Gas Notified Whom MACEY Blood Gas Notified Time 06/26/2017 10:57:55 PM Test 06/27/17 05:03 06/27/17 07:00 06/27/17 08:07 06/27/17 08:20 White Blood Count 16.9 #H Red Blood Count 2.36 #L Hemoglobin 6.9 *L 6.8 *L Hematocrit 21.0 #L 21.0 L Mean Corpuscular Volume 89.0 Mean Corpuscular Hemoglobin 29.2 Mean Corpuscular Hemoglobin Concent 32.9 Red Cell Distribution Width 15.3 H Platelet Count 212 Mean Platelet Volume 11.7 H Neutrophils % Segmented Neutrophils % (Manual) 56 Band Neutrophils % (Manual) 9 H Lymphocytes % Lymphocytes % (Manual) 30 Reactive Lymphocytes % (Manual) 2 H Monocytes % Monocytes % (Manual) 2 Eosinophils % Basophils % Myelocytes % (Manual) 1 H Nucleated Red Blood Cells % 0.2 H Neutrophils # Neutrophils # (Manual) 9.7 H Band Neutrophils # 1.5 H Absolute Lymphocytes (Manual) 5.0 H Lymphocytes # Reactive Lymphocytes # 0.3 H Monocytes # Absolute Monocytes (Manual) 0.3 Eosinophils # Basophils # Myelocytes # 0.1 H Nucleated Red Blood Cells # Toxic Granulation 1+ Platelet Estimate NORMAL Polychromasia 3+ Sodium Level 141 Potassium Level 3.8 Chloride Level 102 Carbon Dioxide Level 30 Anion Gap 13 Blood Urea Nitrogen 24 #H Creatinine 0.59 L Glucose Level 125 Calcium Level 8.4 Phosphorus Level 3.6 Magnesium Level 2.2 Blood Gas Specimen Source Blood arterial Arterial Blood Date Drawn 06/27/2017 7:12:32 AM Arterial Blood pH (Temp corrected) 7.453 H Arterial Blood pCO2 (Temp correct) 44.1 Arterial Blood pO2 (Temp corrected) 73.6 L Arterial Blood HCO3 30.2 H Arterial Blood Base Excess 5.7 H Arterial Blood Oxygen Saturation 94.5 L Yandel Test ACCEPTAB Arterial Blood Gas Puncture Site Right Radial Arterial Blood Carboxyhemoglobin 0.3 Arterial Blood Methemoglobin 0.3 Blood Gas A-a O2 Differential 197.1 H Oxyhemoglobin Percent 93.9 Total Hemoglobin 7.7 L Blood Gas Temperature 37.0 Blood Gas Respiration Rate 16.0 Blood Gas Actual Respiration Rate 32 Blood Gas Modality MASK - BIPAP FiO2 45.0 Blood Gas Pressure Support 10 Blood Gas IPAP/EPAP Ratio 15/5 Blood Gas Notified Whom TM Blood Gas Notified Time 06/27/2017 7:41:14 AM Bedside Glucose 126 Medications Current Medications Ondansetron HCl (Zofran Inj) 4 mg Q6H PRN IV NAUSEA AND/OR VOMITING; Start at 13:30 Aspirin (Aspirin) 81 mg DAILY PO Last administered on 06/27/17 08:23; Admin Dose 81 MG; Start 06/25/17 at 09:00 Acetaminophen (Tylenol Tab) 650 mg Q6H PRN PO PAIN LEVEL 1-3 OR FEVER Last administered on 06/25/17 20:58; Admin Dose 650 MG; Start 06/24/17 at 13:30 Heparin Sodium (Porcine) 5000 unit 5,000 unit Q8 SC Last administered on 05:50; Admin Dose 5,000 UNIT; Start 06/24/17 at 14:00 Azithromycin (Zithromax 500mg/ NS (Pmx)) 250 ml @ 250 mls/hr Q24H IVPB Last administered on 06/27/17 10:49; Admin Dose 250 MLS/HR; Start 06/25/17 at 10:00 Carvedilol (Coreg) 3.125 mg BID PO Last administered on 06/27/17 08:23; Admin Dose 3.125 MG; Start 06/24/17 at 21:00 Gabapentin (Neurontin) 300 mg QHS PO Last administered on 06/26/17 21:50; Admin Dose 300 MG; Start 06/24/17 at 21:00 Tamsulosin HCl (Flomax) 0.4 mg HS PO Last administered on 06/26/17 21:50; Admin Dose 0.4 MG; Start 06/24/17 at 21:00 Atorvastatin Calcium (Lipitor) 10 mg DAILY@21 PO Last administered on 21:50; Admin Dose 10 MG; Start 06/24/17 at 21:00 Diagnostic Test (Pha) (Accu-Chek) 1 ea 02 XX Last administered on 06/25/17 02: 14; Admin Dose 1 EA; Start 06/25/17 at 02:00 Miscellaneous Information 1 ea NOTE XX ; Start 06/24/17 at 15:00 Glucose (Glutose) 15 gm Q15M PRN PO DECREASED GLUCOSE; Start 06/24/17 at 15:00 Glucose (Glutose) 22.5 gm Q15M PRN PO DECREASED GLUCOSE; Start 06/24/17 at 15: 00 Dextrose (D50w Syringe) 25 ml Q15M PRN IV DECREASED GLUCOSE; Start 06/24/17 at 15:00 Dextrose (D50w Syringe) 50 ml Q15M PRN IV DECREASED GLUCOSE; Start 06/24/17 at 15:00 Glucagon (Glucagen) 1 mg Q15M PRN IM DECREASED GLUCOSE; Start 06/24/17 at 15:00 Glucose (Glutose) 15 gm Q15M PRN BUCCAL DECREASED GLUCOSE; Start 06/24/17 at 15 :00 Albuterol 2.5 mg 2.5 mg Q4 PRN HHN SHORTNESS OF BREATH; Start 06/24/17 at 15:00 Cefepime HCl (Maxipime 1gm/50 ml (Pmx)) 50 ml @ 100 mls/hr Q12 IVPB Last administered on 06/27/17 08:23; Admin Dose 100 MLS/HR; Start 06/24/17 at 21:00 Famotidine (Pepcid) 20 mg BID PO Last administered on 06/27/17 08:23; Admin Dose 20 MG; Start 06/25/17 at 21:00 Furosemide 20 mg 20 mg DAILY IV Last administered on 06/27/17 08:23; Admin Dose 20 MG; Start 06/27/17 at 09:00 Pantoprazole/ Sodium Chloride (Protonix Iv/NS) 100 ml @ 10 mls/hr Q10H IV ; Start 06/27/17 at 11:00 Assessment/Plan Chief Complaint/Hosp Course Assessment 1. Acute hypoxemic and hypercapnic respiratory failure 2. Bibasilar pneumonia likely community-acquired pneumonia. Spiculated lesion on chest CT concerning for possible underlying malignancy 3. Probable underlying obstructive sleep apnea 4. Possible COPD component 5. Significant anemia questionable GI bleed. Plan 1. Continue current antibiotic coverage 2. Encourage noninvasive positive pressure ventilation 3. Bronchodilators 4. Transfuse 2 unit of packed red blood cells 5. Monitor H&H Disposition Continue ICU care. Problems: IGOR WEBER [facility], [facility] Jun 27, 2017 11:25
[2017-06-27] MEDS: PANTOPRAZOLE IV 80 MG in SOD CHLORIDE 0.9% 100 ML IV SCH ×2 (11:42→22:43)
[2017-06-27 14:29] LABS: HEMOGLOBIN 7.4 g/dl (14.0-18.0)
--- NOTE | 2017-06-27 17:57 | CONS ---
Date/Time of Note Date/Time of Note DATE: 06/27/17 TIME: 17:57 Consultation Date/Type/Reason Admit Date/Time Jun 24, 2017 at 11:58 Eyes: no complaints ENT: no complaints Respiratory: cough, shortness of breath, No sputum, No wheezing Cardiovascular: edema, No chest pain, No lightheadedness, No palpitations Gastrointestinal: nausea, pain (site of ventral hernia), No constipation, No diarrhea Genitourinary: no complaints Musculoskeletal: no complaints Skin: erythema Neurologic: no complaints Lymphatic: no complaints Psychological: no complaints Immunologic: no complaints Past Medical History Medical History: coronary artery disease, diabetes, hypertension Past Surgical History Past Surgical Hx: coronary bypass surgery, other (ventral hernia repair) Social History Alcohol Use: none Smoking Status: Former smoker Drug Use: none Exam/Review of Systems Vital Signs Vitals Vital Signs Date Time Temp Pulse Resp B/P Pulse Ox O2 Delivery O2 Flow Rate FiO2 06/27/17 16:00 72 06/27/17 13:30 18 117/61 95 06/27/17 13:00 High Flow 06/27/17 12:00 98.2 06/27/17 08:10 100 06/26/17 17:40 15.0 Intake and Output 06/26/17 06/26/17 06/27/17 15:00 23:00 07:00 Intake Total 600 ml 250 ml 700 ml Output Total 500 ml 900 ml 450 ml Balance 100 ml -650 ml 250 ml Results Result Diagram: 06/27/17 1402 06/27/17 0503 Results 24 hrs Laboratory Tests Test 06/26/17 20:29 06/26/17 22:32 06/27/17 05:03 06/27/17 07:00 Bedside Glucose 147 Blood Gas Specimen Source Blood arterial Blood arterial Arterial Blood Date Drawn 06/26/2017 10:45:42 PM 06/27/2017 7:12:32 AM Arterial Blood pH (Temp corrected) 7.455 H 7.453 H Arterial Blood pCO2 (Temp correct) 46.2 H 44.1 Arterial Blood pO2 (Temp corrected) 93.1 73.6 L Arterial Blood HCO3 31.8 H 30.2 H Arterial Blood Base Excess 7.1 H 5.7 H Arterial Blood Oxygen Saturation 97.1 94.5 L Yandel Test ACCEPTAB ACCEPTAB Arterial Blood Gas Puncture Site Right Radial Right Radial Arterial Blood Carboxyhemoglobin 0.3 0.3 Arterial Blood Methemoglobin 0.1 0.3 Blood Gas A-a O2 Differential 320.1 H 197.1 H Oxyhemoglobin Percent 96.7 93.9 Total Hemoglobin 8.2 L 7.7 L Blood Gas Temperature 37.0 37.0 Blood Gas Respiration Rate 16.0 16.0 Blood Gas Actual Respiration Rate 28 32 Blood Gas Modality MASK - BIPAP MASK - BIPAP FiO2 65.0 45.0 Blood Gas Pressure Support 10 10 Blood Gas IPAP/EPAP Ratio 18/02 18/02 Blood Gas Notified Whom MACEY OBRIEN Blood Gas Notified Time 06/26/2017 10:57:55 PM 06/27/2017 7:41:14 AM White Blood Count 16.9 #H Red Blood Count 2.36 #L Hemoglobin 6.9 *L Hematocrit 21.0 #L Mean Corpuscular Volume 89.0 Mean Corpuscular Hemoglobin 29.2 Mean Corpuscular Hemoglobin Concent 32.9 Red Cell Distribution Width 15.3 H Platelet Count 212 Mean Platelet Volume 11.7 H Neutrophils % Segmented Neutrophils % (Manual) 56 Band Neutrophils % (Manual) 9 H Lymphocytes % Lymphocytes % (Manual) 30 Reactive Lymphocytes % (Manual) 2 H Monocytes % Monocytes % (Manual) 2 Eosinophils % Basophils % Myelocytes % (Manual) 1 H Nucleated Red Blood Cells % 0.2 H Neutrophils # Neutrophils # (Manual) 9.7 H Band Neutrophils # 1.5 H Absolute Lymphocytes (Manual) 5.0 H Lymphocytes # Reactive Lymphocytes # 0.3 H Monocytes # Absolute Monocytes (Manual) 0.3 Eosinophils # Basophils # Myelocytes # 0.1 H Nucleated Red Blood Cells # Toxic Granulation 1+ Platelet Estimate NORMAL Polychromasia 3+ Sodium Level 141 Potassium Level 3.8 Chloride Level 102 Carbon Dioxide Level 30 Anion Gap 13 Blood Urea Nitrogen 24 #H Creatinine 0.59 L Glucose Level 125 Calcium Level 8.4 Phosphorus Level 3.6 Magnesium Level 2.2 Test 06/27/17 08:07 06/27/17 08:20 06/27/17 12:47 06/27/17 14:02 Hemoglobin 6.8 *L 7.4 L Hematocrit 21.0 L 23.0 L Bedside Glucose 126 115 Test 06/27/17 17:23 Bedside Glucose 110 Medications Medications Current Medications Ondansetron HCl (Zofran Inj) 4 mg Q6H PRN IV NAUSEA AND/OR VOMITING; Start at 13:30 Aspirin (Aspirin) 81 mg DAILY PO Last administered on 06/27/17 08:23; Admin Dose 81 MG; Start 06/25/17 at 09:00 Acetaminophen 650 mg 650 mg Q6H PRN PO PAIN LEVEL 1-3 OR FEVER Last administered on 06/25/17 20:58; Admin Dose 650 MG; Start 06/24/17 at 13:30 Azithromycin (Zithromax 500mg/ NS (Pmx)) 250 ml @ 250 mls/hr Q24H IVPB Last administered on 06/27/17 10:49; Admin Dose 250 MLS/HR; Start 06/25/17 at 10:00 Carvedilol (Coreg) 3.125 mg BID PO Last administered on 06/27/17 08:23; Admin Dose 3.125 MG; Start 06/24/17 at 21:00 Gabapentin (Neurontin) 300 mg QHS PO Last administered on 06/26/17 21:50; Admin Dose 300 MG; Start 06/24/17 at 21:00 Tamsulosin HCl (Flomax) 0.4 mg HS PO Last administered on 06/26/17 21:50; Admin Dose 0.4 MG; Start 06/24/17 at 21:00 Atorvastatin Calcium (Lipitor) 10 mg DAILY@21 PO Last administered on 21:50; Admin Dose 10 MG; Start 06/24/17 at 21:00 Diagnostic Test (Pha) (Accu-Chek) 1 ea 02 XX Last administered on 06/25/17 02: 14; Admin Dose 1 EA; Start 06/25/17 at 02:00 Miscellaneous Information 1 ea NOTE XX ; Start 06/24/17 at 15:00 Glucose (Glutose) 15 gm Q15M PRN PO DECREASED GLUCOSE; Start 06/24/17 at 15:00 Glucose (Glutose) 22.5 gm Q15M PRN PO DECREASED GLUCOSE; Start 06/24/17 at 15: 00 Dextrose (D50w Syringe) 25 ml Q15M PRN IV DECREASED GLUCOSE; Start 06/24/17 at 15:00 Dextrose (D50w Syringe) 50 ml Q15M PRN IV DECREASED GLUCOSE; Start 06/24/17 at 15:00 Glucagon (Glucagen) 1 mg Q15M PRN IM DECREASED GLUCOSE; Start 06/24/17 at 15:00 Glucose (Glutose) 15 gm Q15M PRN BUCCAL DECREASED GLUCOSE; Start 06/24/17 at 15 :00 Albuterol 2.5 mg 2.5 mg Q4 PRN HHN SHORTNESS OF BREATH; Start 06/24/17 at 15:00 Cefepime HCl (Maxipime 1gm/50 ml (Pmx)) 50 ml @ 100 mls/hr Q12 IVPB Last administered on 06/27/17 08:23; Admin Dose 100 MLS/HR; Start 06/24/17 at 21:00 Famotidine (Pepcid) 20 mg BID PO Last administered on 06/27/17 08:23; Admin Dose 20 MG; Start 06/25/17 at 21:00 Furosemide 20 mg 20 mg DAILY IV Last administered on 06/27/17 08:23; Admin Dose 20 MG; Start 06/27/17 at 09:00 Pantoprazole/ Sodium Chloride (Protonix Iv/NS) 100 ml @ 10 mls/hr Q10H IV Last administered on 06/27/17 11:42; Admin Dose 10 MLS/HR; Start 06/27/17 at 11 :00 LINDA PORTER MD Jun 27, 2017 17:57
[2017-06-27 18:43] LABS: HEMATOCRIT 23.1 % (42.0-52.0); HEMOGLOBIN 7.5 g/dl (14.0-18.0)
[2017-06-27] MEDS ORDERED: PANTOPRAZOLE IV 80 MG in SOD CHLORIDE 0.9% 100 ML IV SCH (19:00)
[2017-06-27] MEDS: TAMSULOSIN (SR) 0.4 MG CAP PO SCH (21:18)
[2017-06-27] MEDS: ATORVASTATIN 10 MG TAB PO SCH (21:19)
[2017-06-27] MEDS: GABAPENTIN 300 MG CAP PO SCH (21:19)
[2017-06-28] VITALS (61 sets, daily range): BP systolic 94–135; BP diastolic 43–102; PULSE 65–88; RESP 15–35
[2017-06-28 01:17] LABS: HEMATOCRIT 22.7 % (42.0-52.0); HEMOGLOBIN 7.4 g/dl (14.0-18.0)
[2017-06-28] MEDS: ACCU-CHEK XX SCH (02:00)
[2017-06-28 06:36] LABS: ABNORMAL IP MESSAGE 1; BASOPHIL # 0.1 10^3/ul (0.0-0.1); BASOPHILS % 0.3 % (0.0-2.0); EOSINOPHILS # 0.3 10^3/ul (0.0-0.5); EOSINOPHILS % 2.1 % (0.0-7.0); HEMATOCRIT 23.8 % (42.0-52.0); HEMOGLOBIN 7.5 g/dl (14.0-18.0); LYMPHOCYTES # 3.5 10^3/ul (0.8-2.9); LYMPHOCYTES % 21.8 % (15.0-51.0); MEAN CORPUSCULAR HEMOGLOBIN 28.6 pg (29.0-33.0); MEAN CORPUSCULAR HGB CONC 31.5 g/dl (32.0-37.0); MEAN CORPUSCULAR VOLUME 90.8 fl (82.0-101.0); MEAN PLATELET VOLUME 11.5 fl (7.4-10.4); MONOCYTE # 1.1 10^3/ul (0.3-0.9); MONOCYTES % 6.8 % (0.0-11.0); NEUTROPHIL # 9.2 10^3/ul (1.6-7.5); NEUTROPHILS % 57.7 % (39.0-77.0); NUCLEATED RED BLOOD CELLS # 0.1 10^3/ul (0.0-0.0); NUCLEATED RED BLOOD CELLS% 0.4 /100WBC (0.0-0.0); PLATELET COUNT 243 10^3/UL (140-415); POSITIVE DIFF @See below; RED BLOOD COUNT 2.62 10^6/ul (4.70-6.10); RED CELL DISTRIBUTION WIDTH 15.4 % (11.5-14.5)
[2017-06-28] MEDS: PANTOPRAZOLE IV 80 MG in SOD CHLORIDE 0.9% 100 ML IV SCH ×2 (06:44→17:18)
[2017-06-28 07:14] LABS: CALCIUM 8.2 mg/dl (8.4-10.2); CREATININE 0.58 mg/dl (0.61-1.24); PHOSPHORUS 3.6 mg/dl (2.5-4.9); POTASSIUM 3.6 mmol/L (3.5-5.1)
[2017-06-28] MEDS: INSULIN ASPART [NOVOLOG] 3 ML PEN SC SCH ×4 (07:35→20:59)
[2017-06-28 08:27] LABS: Allen Test ACCEPTAB; Arterial Base Excess 5.6 mmol/L (-3.0-3); Arterial COHb 0.3 % (0.0-3.0); Arterial Fraction of Oxyhgb 97.7 % (93.0-99.0); Arterial HCO3 29.8 mmol/L (22.0-26.0); Arterial MetHb 0.3 % (0.0-1.5); Arterial Total Hemglobin 7.9 g/dl (12.0-18.0); MODE HFNC
[2017-06-28] MEDS: CEFEPIME 1GM/50 ML (PMX) 50 ML IVPB SCH ×2 (08:31→20:56)
[2017-06-28] MEDS: FAMOTIDINE 20 MG TAB PO SCH ×2 (08:32→20:56)
[2017-06-28] MEDS: FUROSEMIDE 20 MG INJ IV SCH (08:32)
[2017-06-28] MEDS: ASPIRIN 81 MG TAB PO SCH (08:32)
[2017-06-28] MEDS: AZITHROMYCIN 500MG/NS (PMX) 250 ML IVPB SCH (08:32)
--- NOTE | 2017-06-28 09:11 | RADRPT ---
PROCEDURE: XR Chest. CLINICAL INDICATION: Shortness of breath. TECHNIQUE: Single frontal view. COMPARISON: 06/27/2017. FINDINGS: There is bilateral pulmonary air space disease, slightly improved. The heart is enlarged. There are sternal wires and mediastinal clips. There is no pleural effusion. There is no pneumothorax. IMPRESSION: 1. Slightly improved appearance of the lungs. 2. No other change from 06/27/2017. RPTAT: QQ .Akshat Irvin MD, MD Date Time Electronically viewed and signed by .Akshat Irvin MD, MD on 06/28/2017 09:11 .R/
--- NOTE | 2017-06-28 12:29 | PN ---
Date/Time of Note Date/Time of Note DATE: 06/28/17 TIME: 11:56 Assessment/Plan VTE Prophylaxis VTE Prophylaxis Intervention: contraindicated, SCD's Lines/Catheters IV Catheter Type (from Nrs): Peripheral IV Urinary Cath still in place: No Assessment/Plan Assessment/Plan 1. Acute respiratory failure secondary to multifocal pneumonia - Currently on high flow at 70% this am and not complaint with keeping it in place. When removed will desaturate to the 80s quickly - Pulmonology on board and recommendations appreciated. 2. Sepsis secondary to right lower lobe pneumonia - improving - still has elevated WBC but could be reactive component as neutrophils trending downward - Pulmonology on board and recommendations appreciated. - Blood cultures negative 3. Multifocal pneumonia - On antibiotics and nebs PRN - continues to require high O2 - CTA showed extensive dense consolidation in both lower lobes, left greater than right, with additional patchy consolidation in the lingula and medial right middle and right upper lobes. 4. ?Acute Upper GI bleed - Patient had one episode of dark tarry stool but no further episodes - PPI drip started and GI consulted. appreciate recommendations - Plans for EGD later today 5. Nonspecific mediastinal and bilateral hilar adenopathy. 6. Acute decompensated diastolic heart failure - Cardiology on board and consult appreciated. - Daily IV diuretics with good output - Continue BB, aspirin, and statin 7. hyponatremia- resolved - Will continue to monitor 8. transaminitis - Most likely secondary to congestion - Will continue to monitor 9. Diabetes Mellitus - hold PO home medications - A1c 5.6 - mild ISS 10. h/o CAD s/p CABG 10 years ago 11. 17mm nodule with spiculation - Will need to further evaluation as outpatient. >35 mins of critical care time was spent with this patient and family, answering all questions and concerns. Subjective 24 Hr Interval Summary Free Text/Dictation Patient c/o fatigue and not being able to get any sleep. Has been taking off the high flow O2 NC and desaturates into the 80s quickly. NC was taped onto his cheeks and maintains saturations >90 as long as does not remove. No further episodes of dark tarry stools. Plans for EGD today Exam/Review of Systems Vital Signs Vitals Vital Signs Date Time Temp Pulse Resp B/P Pulse Ox O2 Delivery O2 Flow Rate FiO2 06/28/17 11:44 100 100 06/28/17 11:00 67 20 118/51 06/28/17 07:25 98.0 06/27/17 20:00 High Flow 06/26/17 17:40 15.0 Intake and Output 06/27/17 06/27/17 06/28/17 15:00 23:00 07:00 Intake Total 640 ml 190 ml 90 ml Output Total 600 ml 600 ml 300 ml Balance 40 ml -410 ml -210 ml Exam General: alert, awake, NAD, on high flow O2 HEENT: NC/AT, PERRL, EOMI CVS: regular rate and rhythm, no murmurs Lungs: Equal chest rise, diminished at bases b/l. no wheezing or crackles appreciated Abd: soft, NT, protuberant, no rebound or guarding Ext: no edema, cyanosis, ecchymosis, clubbing Skin: pale, no rashes Results Result Diagram: 06/28/17 0557 06/28/17 0557 Results 24 hrs Laboratory Tests Test 06/27/17 12:47 06/27/17 14:02 06/27/17 17:23 06/27/17 18:25 Bedside Glucose 115 110 Hemoglobin 7.4 L 7.5 L Hematocrit 23.0 L 23.1 L Test 06/27/17 21:26 06/28/17 01:05 06/28/17 05:57 06/28/17 07:00 Bedside Glucose 101 Hemoglobin 7.4 L 7.5 L Hematocrit 22.7 L 23.8 L White Blood Count 16.0 H Red Blood Count 2.62 L Mean Corpuscular Volume 90.8 Mean Corpuscular Hemoglobin 28.6 L Mean Corpuscular Hemoglobin Concent 31.5 L Red Cell Distribution Width 15.4 H Platelet Count 243 Mean Platelet Volume 11.5 H Neutrophils % 57.7 Lymphocytes % 21.8 Monocytes % 6.8 Eosinophils % 2.1 Basophils % 0.3 Nucleated Red Blood Cells % 0.4 H Neutrophils # 9.2 H Lymphocytes # 3.5 H Monocytes # 1.1 H Eosinophils # 0.3 Basophils # 0.1 Nucleated Red Blood Cells # 0.1 H Sodium Level 140 Potassium Level 3.6 Chloride Level 102 Carbon Dioxide Level 32 H Anion Gap 10 Blood Urea Nitrogen 16 Creatinine 0.58 L Glucose Level 94 Calcium Level 8.2 L Phosphorus Level 3.6 Magnesium Level 2.0 Blood Gas Specimen Source Blood arterial Arterial Blood Date Drawn 06/28/2017 7:35:46 AM Arterial Blood pH (Temp corrected) 7.466 H Arterial Blood pCO2 (Temp correct) 42.3 Arterial Blood pO2 (Temp corrected) 121.7 H Arterial Blood HCO3 29.8 H Arterial Blood Base Excess 5.6 H Arterial Blood Oxygen Saturation 98.3 H Yandel Test ACCEPTAB Arterial Blood Gas Puncture Site Right Radial Arterial Blood Carboxyhemoglobin 0.3 Arterial Blood Methemoglobin 0.3 Blood Gas A-a O2 Differential 549.0 H Oxyhemoglobin Percent 97.7 Total Hemoglobin 7.9 L Blood Gas Temperature 37.0 Blood Gas Modality HFNC FiO2 100.0 Blood Gas Notified Whom CW Blood Gas Notified Time 06/28/2017 8:27:01 AM Test 06/28/17 08:45 Bedside Glucose 117 Medications Medications Current Medications Ondansetron HCl (Zofran Inj) 4 mg Q6H PRN IV NAUSEA AND/OR VOMITING; Start at 13:30 Aspirin (Aspirin) 81 mg DAILY PO Last administered on 06/28/17 08:32; Admin Dose 81 MG; Start 06/25/17 at 09:00 Acetaminophen 650 mg 650 mg Q6H PRN PO PAIN LEVEL 1-3 OR FEVER Last administered on 06/25/17 20:58; Admin Dose 650 MG; Start 06/24/17 at 13:30 Azithromycin (Zithromax 500mg/ NS (Pmx)) 250 ml @ 250 mls/hr Q24H IVPB Last administered on 06/28/17 08:32; Admin Dose 250 MLS/HR; Start 06/25/17 at 10:00 Carvedilol (Coreg) 3.125 mg BID PO Last administered on 06/28/17 08:32; Admin Dose 3.125 MG; Start 06/24/17 at 21:00 Gabapentin (Neurontin) 300 mg QHS PO Last administered on 06/27/17 21:19; Admin Dose 300 MG; Start 06/24/17 at 21:00 Tamsulosin HCl (Flomax) 0.4 mg HS PO Last administered on 06/27/17 21:18; Admin Dose 0.4 MG; Start 06/24/17 at 21:00 Atorvastatin Calcium (Lipitor) 10 mg DAILY@21 PO Last administered on 21:19; Admin Dose 10 MG; Start 06/24/17 at 21:00 Diagnostic Test (Pha) (Accu-Chek) 1 ea 02 XX Last administered on 06/25/17 02: 14; Admin Dose 1 EA; Start 06/25/17 at 02:00 Miscellaneous Information 1 ea NOTE XX ; Start 06/24/17 at 15:00 Glucose (Glutose) 15 gm Q15M PRN PO DECREASED GLUCOSE; Start 06/24/17 at 15:00 Glucose (Glutose) 22.5 gm Q15M PRN PO DECREASED GLUCOSE; Start 06/24/17 at 15: 00 Dextrose (D50w Syringe) 25 ml Q15M PRN IV DECREASED GLUCOSE; Start 06/24/17 at 15:00 Dextrose (D50w Syringe) 50 ml Q15M PRN IV DECREASED GLUCOSE; Start 06/24/17 at 15:00 Glucagon (Glucagen) 1 mg Q15M PRN IM DECREASED GLUCOSE; Start 06/24/17 at 15:00 Glucose (Glutose) 15 gm Q15M PRN BUCCAL DECREASED GLUCOSE; Start 06/24/17 at 15 :00 Albuterol 2.5 mg 2.5 mg Q4 PRN HHN SHORTNESS OF BREATH; Start 06/24/17 at 15:00 Cefepime HCl (Maxipime 1gm/50 ml (Pmx)) 50 ml @ 100 mls/hr Q12 IVPB Last administered on 06/28/17 08:31; Admin Dose 100 MLS/HR; Start 06/24/17 at 21:00 Famotidine (Pepcid) 20 mg BID PO Last administered on 06/28/17 08:32; Admin Dose 20 MG; Start 06/25/17 at 21:00 Furosemide 20 mg 20 mg DAILY IV Last administered on 06/28/17 08:32; Admin Dose 20 MG; Start 06/27/17 at 09:00 Pantoprazole/ Sodium Chloride (Protonix Iv/NS) 100 ml @ 10 mls/hr Q10H IV Last administered on 06/28/17 06:44; Admin Dose 10 MLS/HR; Start 06/27/17 at 11 :00 NICOLA EUBANKS MD Jun 28, 2017 12:06
--- NOTE | 2017-06-28 13:33 | PN ---
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 Antibiotics as per infectious disease. on Lasix to daily, continue gentle diuretics as blood pressure and renal function permits. -pulmonary involved Subjective 24 Hr Interval Summary Free Text/Dictation the patint with no change Exam/Review of Systems Vital Signs Vitals Vital Signs Date Time Temp Pulse Resp B/P Pulse Ox O2 Delivery O2 Flow Rate FiO2 06/28/17 11:44 100 100 06/28/17 11:00 67 20 118/51 06/28/17 07:25 98.0 06/27/17 20:00 High Flow 06/26/17 17:40 15.0 Intake and Output 06/27/17 06/27/17 06/28/17 15:00 23:00 07:00 Intake Total 640 ml 190 ml 90 ml Output Total 600 ml 600 ml 300 ml Balance 40 ml -410 ml -210 ml Results Result Diagram: 06/28/17 0557 06/28/17 0557 Results 24 hrs Laboratory Tests Test 06/27/17 14:02 06/27/17 17:23 06/27/17 18:25 06/27/17 21:26 Hemoglobin 7.4 L 7.5 L Hematocrit 23.0 L 23.1 L Bedside Glucose 110 101 Test 06/28/17 01:05 06/28/17 05:57 06/28/17 07:00 06/28/17 08:45 Hemoglobin 7.4 L 7.5 L Hematocrit 22.7 L 23.8 L White Blood Count 16.0 H Red Blood Count 2.62 L Mean Corpuscular Volume 90.8 Mean Corpuscular Hemoglobin 28.6 L Mean Corpuscular Hemoglobin Concent 31.5 L Red Cell Distribution Width 15.4 H Platelet Count 243 Mean Platelet Volume 11.5 H Neutrophils % 57.7 Lymphocytes % 21.8 Monocytes % 6.8 Eosinophils % 2.1 Basophils % 0.3 Nucleated Red Blood Cells % 0.4 H Neutrophils # 9.2 H Lymphocytes # 3.5 H Monocytes # 1.1 H Eosinophils # 0.3 Basophils # 0.1 Nucleated Red Blood Cells # 0.1 H Sodium Level 140 Potassium Level 3.6 Chloride Level 102 Carbon Dioxide Level 32 H Anion Gap 10 Blood Urea Nitrogen 16 Creatinine 0.58 L Glucose Level 94 Calcium Level 8.2 L Phosphorus Level 3.6 Magnesium Level 2.0 Blood Gas Specimen Source Blood arterial Arterial Blood Date Drawn 06/28/2017 7:35:46 AM Arterial Blood pH (Temp corrected) 7.466 H Arterial Blood pCO2 (Temp correct) 42.3 Arterial Blood pO2 (Temp corrected) 121.7 H Arterial Blood HCO3 29.8 H Arterial Blood Base Excess 5.6 H Arterial Blood Oxygen Saturation 98.3 H Yandel Test ACCEPTAB Arterial Blood Gas Puncture Site Right Radial Arterial Blood Carboxyhemoglobin 0.3 Arterial Blood Methemoglobin 0.3 Blood Gas A-a O2 Differential 549.0 H Oxyhemoglobin Percent 97.7 Total Hemoglobin 7.9 L Blood Gas Temperature 37.0 Blood Gas Modality HFNC FiO2 100.0 Blood Gas Notified Whom CW Blood Gas Notified Time 06/28/2017 8:27:01 AM Bedside Glucose 117 Test 06/28/17 11:54 Bedside Glucose 110 Medications Medications Current Medications Ondansetron HCl (Zofran Inj) 4 mg Q6H PRN IV NAUSEA AND/OR VOMITING; Start at 13:30 Aspirin (Aspirin) 81 mg DAILY PO Last administered on 06/28/17 08:32; Admin Dose 81 MG; Start 06/25/17 at 09:00 Acetaminophen 650 mg 650 mg Q6H PRN PO PAIN LEVEL 1-3 OR FEVER Last administered on 06/25/17 20:58; Admin Dose 650 MG; Start 06/24/17 at 13:30 Azithromycin (Zithromax 500mg/ NS (Pmx)) 250 ml @ 250 mls/hr Q24H IVPB Last administered on 06/28/17 08:32; Admin Dose 250 MLS/HR; Start 06/25/17 at 10:00 Carvedilol (Coreg) 3.125 mg BID PO Last administered on 06/28/17 08:32; Admin Dose 3.125 MG; Start 06/24/17 at 21:00 Gabapentin (Neurontin) 300 mg QHS PO Last administered on 06/27/17 21:19; Admin Dose 300 MG; Start 06/24/17 at 21:00 Tamsulosin HCl (Flomax) 0.4 mg HS PO Last administered on 06/27/17 21:18; Admin Dose 0.4 MG; Start 06/24/17 at 21:00 Atorvastatin Calcium (Lipitor) 10 mg DAILY@21 PO Last administered on 21:19; Admin Dose 10 MG; Start 06/24/17 at 21:00 Diagnostic Test (Pha) (Accu-Chek) 1 ea 02 XX Last administered on 06/25/17 02: 14; Admin Dose 1 EA; Start 06/25/17 at 02:00 Miscellaneous Information 1 ea NOTE XX ; Start 06/24/17 at 15:00 Glucose (Glutose) 15 gm Q15M PRN PO DECREASED GLUCOSE; Start 06/24/17 at 15:00 Glucose (Glutose) 22.5 gm Q15M PRN PO DECREASED GLUCOSE; Start 06/24/17 at 15: 00 Dextrose (D50w Syringe) 25 ml Q15M PRN IV DECREASED GLUCOSE; Start 06/24/17 at 15:00 Dextrose (D50w Syringe) 50 ml Q15M PRN IV DECREASED GLUCOSE; Start 06/24/17 at 15:00 Glucagon (Glucagen) 1 mg Q15M PRN IM DECREASED GLUCOSE; Start 06/24/17 at 15:00 Glucose (Glutose) 15 gm Q15M PRN BUCCAL DECREASED GLUCOSE; Start 06/24/17 at 15 :00 Albuterol 2.5 mg 2.5 mg Q4 PRN HHN SHORTNESS OF BREATH; Start 06/24/17 at 15:00 Cefepime HCl (Maxipime 1gm/50 ml (Pmx)) 50 ml @ 100 mls/hr Q12 IVPB Last administered on 06/28/17 08:31; Admin Dose 100 MLS/HR; Start 06/24/17 at 21:00 Famotidine (Pepcid) 20 mg BID PO Last administered on 06/28/17 08:32; Admin Dose 20 MG; Start 06/25/17 at 21:00 Furosemide 20 mg 20 mg DAILY IV Last administered on 06/28/17 08:32; Admin Dose 20 MG; Start 06/27/17 at 09:00 Pantoprazole/ Sodium Chloride (Protonix Iv/NS) 100 ml @ 10 mls/hr Q10H IV Last administered on 06/28/17t 06:44; Admin Dose 10 MLS/HR; Start 06/27/17 at 11 :00 CRISTEL WHITING MD Jun 28, 2017 13:33
[2017-06-28] MEDS ORDERED: EPHEDrine SULFATE 50 MG/5 ML SYG ONE (14:12)
[2017-06-28] MEDS ORDERED: PHENYLephrine (100 MCG/ML) 5ML SYG ONE (14:12)
[2017-06-28 14:20] LABS: HEMOGLOBIN 7.5 g/dl (14.0-18.0)
--- NOTE | 2017-06-28 16:08 | CONS ---
Date/Time of Note Date/Time of Note DATE: 06/28/17 TIME: 16:00 Consult Date/Type/Reason Admit Date/Time Jun 24, 2017 at 11:58 Initial Consult Date 06/24/17 Type of Consultation: Pulmonary Ordering Provider: NICOLA EUBANKS MD Subjective Continues high flow oxygen. Desaturations current settings. GI recommendations noted. Remains comfortable this morning. Objective Vital Signs Date Time Temp Pulse Resp B/P Pulse Ox O2 Delivery O2 Flow Rate FiO2 06/28/17 15:59 96 80 06/28/17 14:00 75 31 135/44 High Flow 06/28/17 12:00 97.9 06/26/17 17:40 15.0 Intake and Output 06/27/17 06/27/17 06/28/17 15:00 23:00 07:00 Intake Total 640 ml 190 ml 90 ml Output Total 600 ml 600 ml 300 ml Balance 40 ml -410 ml -210 ml Exam GENERAL: Obese [place] gentleman appears comfortable on Vapotherm oxygen. VITAL SIGNS: per chart NECK: Supple. No JVD or lymphadenopathy. CARDIAC EXAM: S1, S2. No added sounds or murmurs. CHEST: Diminished air entry both lung bases. ABDOMEN: Soft, nontender. No guarding or rebound. Obese EXTREMITIES: No cyanosis, clubbing or edema +2. NEUROLOGIC: Generalized weakness. No focal deficits. Results/Medications Result Diagram: 06/28/17 1340 06/28/17 0557 Results 24 hrs Laboratory Tests Test 06/27/17 17:23 06/27/17 18:25 06/27/17 21:26 06/28/17 01:05 Bedside Glucose 110 101 Hemoglobin 7.5 L 7.4 L Hematocrit 23.1 L 22.7 L Test 06/28/17 05:57 06/28/17 07:00 06/28/17 08:45 06/28/17 11:54 White Blood Count 16.0 H Red Blood Count 2.62 L Hemoglobin 7.5 L Hematocrit 23.8 L Mean Corpuscular Volume 90.8 Mean Corpuscular Hemoglobin 28.6 L Mean Corpuscular Hemoglobin Concent 31.5 L Red Cell Distribution Width 15.4 H Platelet Count 243 Mean Platelet Volume 11.5 H Neutrophils % 57.7 Lymphocytes % 21.8 Monocytes % 6.8 Eosinophils % 2.1 Basophils % 0.3 Nucleated Red Blood Cells % 0.4 H Neutrophils # 9.2 H Lymphocytes # 3.5 H Monocytes # 1.1 H Eosinophils # 0.3 Basophils # 0.1 Nucleated Red Blood Cells # 0.1 H Sodium Level 140 Potassium Level 3.6 Chloride Level 102 Carbon Dioxide Level 32 H Anion Gap 10 Blood Urea Nitrogen 16 Creatinine 0.58 L Glucose Level 94 Calcium Level 8.2 L Phosphorus Level 3.6 Magnesium Level 2.0 Blood Gas Specimen Source Blood arterial Arterial Blood Date Drawn 06/28/2017 7:35:46 AM Arterial Blood pH (Temp corrected) 7.466 H Arterial Blood pCO2 (Temp correct) 42.3 Arterial Blood pO2 (Temp corrected) 121.7 H Arterial Blood HCO3 29.8 H Arterial Blood Base Excess 5.6 H Arterial Blood Oxygen Saturation 98.3 H Yandel Test ACCEPTAB Arterial Blood Gas Puncture Site Right Radial Arterial Blood Carboxyhemoglobin 0.3 Arterial Blood Methemoglobin 0.3 Blood Gas A-a O2 Differential 549.0 H Oxyhemoglobin Percent 97.7 Total Hemoglobin 7.9 L Blood Gas Temperature 37.0 Blood Gas Modality HFNC FiO2 100.0 Blood Gas Notified Whom CW Blood Gas Notified Time 06/28/2017 8:27:01 AM Bedside Glucose 117 110 Test 06/28/17 13:40 Hemoglobin 7.5 L Hematocrit 24.0 L Medications Current Medications Ondansetron HCl (Zofran Inj) 4 mg Q6H PRN IV NAUSEA AND/OR VOMITING; Start at 13:30 Aspirin (Aspirin) 81 mg DAILY PO Last administered on 06/28/17 08:32; Admin Dose 81 MG; Start 06/25/17 at 09:00 Acetaminophen 650 mg 650 mg Q6H PRN PO PAIN LEVEL 1-3 OR FEVER Last administered on 06/25/17 20:58; Admin Dose 650 MG; Start 06/24/17 at 13:30 Azithromycin (Zithromax 500mg/ NS (Pmx)) 250 ml @ 250 mls/hr Q24H IVPB Last administered on 06/28/17 08:32; Admin Dose 250 MLS/HR; Start 06/25/17 at 10:00 Carvedilol (Coreg) 3.125 mg BID PO Last administered on 06/28/17 08:32; Admin Dose 3.125 MG; Start 06/24/17 at 21:00 Gabapentin (Neurontin) 300 mg QHS PO Last administered on 06/27/17 21:19; Admin Dose 300 MG; Start 06/24/17 at 21:00 Tamsulosin HCl (Flomax) 0.4 mg HS PO Last administered on 06/27/17 21:18; Admin Dose 0.4 MG; Start 06/24/17 at 21:00 Atorvastatin Calcium (Lipitor) 10 mg DAILY@21 PO Last administered on 21:19; Admin Dose 10 MG; Start 06/24/17 at 21:00 Diagnostic Test (Pha) (Accu-Chek) 1 ea 02 XX Last administered on 06/25/17 02: 14; Admin Dose 1 EA; Start 06/25/17 at 02:00 Miscellaneous Information 1 ea NOTE XX ; Start 06/24/17 at 15:00 Glucose (Glutose) 15 gm Q15M PRN PO DECREASED GLUCOSE; Start 06/24/17 at 15:00 Glucose (Glutose) 22.5 gm Q15M PRN PO DECREASED GLUCOSE; Start 06/24/17 at 15: 00 Dextrose (D50w Syringe) 25 ml Q15M PRN IV DECREASED GLUCOSE; Start 06/24/17 at 15:00 Dextrose (D50w Syringe) 50 ml Q15M PRN IV DECREASED GLUCOSE; Start 06/24/17 at 15:00 Glucagon (Glucagen) 1 mg Q15M PRN IM DECREASED GLUCOSE; Start 06/24/17 at 15:00 Glucose (Glutose) 15 gm Q15M PRN BUCCAL DECREASED GLUCOSE; Start 06/24/17 at 15 :00 Albuterol 2.5 mg 2.5 mg Q4 PRN HHN SHORTNESS OF BREATH; Start 06/24/17 at 15:00 Cefepime HCl (Maxipime 1gm/50 ml (Pmx)) 50 ml @ 100 mls/hr Q12 IVPB Last administered on 06/28/17 08:31; Admin Dose 100 MLS/HR; Start 06/24/17 at 21:00 Famotidine (Pepcid) 20 mg BID PO Last administered on 06/28/17 08:32; Admin Dose 20 MG; Start 06/25/17 at 21:00 Furosemide 20 mg 20 mg DAILY IV Last administered on 06/28/17 08:32; Admin Dose 20 MG; Start 06/27/17 at 09:00 Pantoprazole/ Sodium Chloride (Protonix Iv/NS) 100 ml @ 10 mls/hr Q10H IV Last administered on 06/28/17 06:44; Admin Dose 10 MLS/HR; Start 06/27/17 at 11 :00 Assessment/Plan Chief Complaint/Hosp Course Assessment 1. Acute hypoxemic and hypercapnic respiratory failure 2. Bibasilar pneumonia likely community-acquired pneumonia. Spiculated lesion on chest CT concerning for possible underlying malignancy, outpatient work up with PET and PFTS 3. Probable underlying obstructive sleep apnea 4. Possible COPD component 5. GI bleed. Plan 1. Continue current antibiotic coverage, urine shows coag negative staph will add vancomycin. 2. Continue high flow O2, will add steroids for possible COPD exacerbation component. 3. Bronchodilators 4. Consider transfusion of packed red blood cells. GI recommendations. 5. Monitor H&H Disposition Continue ICU care. Problems: IGOR WEBER MD, [facility] Jun 28, 2017 16:08
[2017-06-28] MEDS ORDERED: VANCOMYCIN IV PER PHARMACY XX SCH (16:30)
[2017-06-28] MEDS ORDERED: VANCOMYCIN 2 GM in SOD CHLORIDE 0.9% 500 ML IVPB SCH (17:00)
[2017-06-28] MEDS: METHYLPREDNISOLONE 125 MG INJ IV SCH ×2 (17:31→23:38)
[2017-06-28] MEDS ORDERED: MIDAZOLAM 1 MG/ML 2 ML INJ ONE (17:39)
[2017-06-28] MEDS ORDERED: PROPOFOL 20 ML ONE (17:39)
[2017-06-28] MEDS ORDERED: LIDOCAINE 2% (SDV) 5 ML INJ ONE (17:39)
--- NOTE | 2017-06-28 18:53 | OPPN ---
Date/Time of Note Date/Time of Note DATE: 06/28/17 TIME: 18:48 Proc Note GI Procedure Date 06/28/17 Pre-procedure Diagnosis * GI bleeding Post-procedure Diagnosis Assessment: * Extensive esophageal ulceration. No evidence of active or recent bleeding. * Hiatal hernia * Moderate gastritis. * Moderate duodenitis. Plan: * Continue Protonix drip * Monitor H&H and transfuse as necessary Surgeon LINDA PORTER MD [facility] [employer] Case Manager none Anesthesia Type: MAC Anesthesiologist: BRUNO MATUTE MD Tourniquet Time none EBL none Transfusion required none Grafts/Implants none Tubes/Drains none Complication(s) none Pt Condition post procedure: stable Disposition: PACU Indications: other (GI bleeding) Procedure Description After informed consent, with the patient/relatives understanding the procedure, its indications, potential risks and complications, including but not limited to : allergic reaction, bleeding, perforation or infection, and after all pertinent questions were answered to the patients satisfaction, the patient/ relatives signed witnessed informed consent. Following this, premedication was administered slowly IV push under careful cardiovascular and respiratory monitoring with pulse oximetry, automatic blood pressure, and court monitor. Once the sedative effect was achieved the patient was place in the left lateral decubitus, the panendoscope was introduced and advanced under visual control. Careful examination of the upper gastrointestinal tract, both on insertion as well as withdrawal of the instrument disclosing the following findings: ESOPHAGUS: the mucosa of the entire esophagus was carefully examined and showed the following findings: There is extensive ulceration of the distal esophagus. No active or recent bleeding is present. Otherwise the mucosa appears within normal limits. There is no evidence of varices, neoplasm, or stricture. Small Hiatal Hernia identified. STOMACH: Upon entrance to the stomach air was insufflated, the gastric pope distended normally. The mucosa of the fundus, body and antrum of the stomach was carefully examined both head-on and on retroflexion, and showed the following findings: Is moderate erythema and edema of the mucosa of the body and antrum of the stomach. Otherwise the mucosa appears within normal limits with no abnormalities. There is no evidence of ulcers or neoplasm. PYLORUS: The pylorus was carefully examined and showed the following findings: the pylorus appears patent and within normal limits, with no evidence of gastric outlet obstruction. DUODENUM: The duodenal mucosa was carefully examined in the duodenal bulb as well as the second portion of the duodenum and showed the following findings: Is moderate erythema and edema of the mucosa of the duodenal bulb. Otherwise the mucosa appears unremarkable with no evidence of ulcer or neoplasm. Copies To: CC: LINDA PORTER MD, MORDO MD Jun 28, 2017 18:53
[2017-06-28 19:41] LABS: HEMATOCRIT 24.6 % (42.0-52.0); HEMOGLOBIN 7.9 g/dl (14.0-18.0)
[2017-06-28] MEDS: ATORVASTATIN 10 MG TAB PO SCH (20:56)
[2017-06-28] MEDS: TAMSULOSIN (SR) 0.4 MG CAP PO SCH (20:56)
[2017-06-28] MEDS: GABAPENTIN 300 MG CAP PO SCH (20:57)
[2017-06-29] VITALS (45 sets, daily range): BP systolic 64–181; BP diastolic 40–107; PULSE 53–80; RESP 15–31
[2017-06-29 01:14] LABS: HEMATOCRIT 25.6 % (42.0-52.0); HEMOGLOBIN 8.2 g/dl (14.0-18.0)
[2017-06-29] MEDS: ACCU-CHEK XX SCH (02:00)
[2017-06-29] MEDS: PANTOPRAZOLE IV 80 MG in SOD CHLORIDE 0.9% 100 ML IV SCH ×3 (02:10→23:33)
[2017-06-29 05:57] LABS: ABNORMAL IP MESSAGE 1; HEMATOCRIT 25.4 % (42.0-52.0); MEAN CORPUSCULAR HEMOGLOBIN 29.1 pg (29.0-33.0); MEAN CORPUSCULAR HGB CONC 31.5 g/dl (32.0-37.0); MEAN CORPUSCULAR VOLUME 92.4 fl (82.0-101.0); MEAN PLATELET VOLUME 11.3 fl (7.4-10.4); NUCLEATED RED BLOOD CELLS% 0.2 /100WBC (0.0-0.0); PLATELET COUNT 292 10^3/UL (140-415); POSITIVE DIFF @See below; RED BLOOD COUNT 2.75 10^6/ul (4.70-6.10); RED CELL DISTRIBUTION WIDTH 15.3 % (11.5-14.5); WHITE BLOOD COUNT 15.8 10^3/ul (4.8-10.8)
[2017-06-29] MEDS: METHYLPREDNISOLONE 125 MG INJ IV SCH ×4 (06:00→23:38)
[2017-06-29] MEDS: VANCOMYCIN 1.5 GM in SOD CHLORIDE 0.9% 250 ML IVPB SCH ×3 (06:01→22:07)
[2017-06-29 06:42] LABS: ALBUMIN 3.2 g/dl (3.3-4.9); ALBUMIN/GLOBULIN RATIO 0.82; BILIRUBIN,INDIRECT 0.2 mg/dl (0-1.1); BILIRUBIN,TOTAL 0.2 mg/dl (0.2-1.3); CALCIUM 8.2 mg/dl (8.4-10.2); CREATININE 0.62 mg/dl (0.61-1.24); MAGNESIUM 2.5 mg/dl (1.7-2.5); POTASSIUM 4.2 mmol/L (3.5-5.1); TOTAL PROTEIN 7.1 g/dl (6.1-8.1)
--- NOTE | 2017-06-29 07:32 | RADRPT ---
PROCEDURE: XR Chest. CLINICAL INDICATION: Shortness of breath. TECHNIQUE: Single frontal view. COMPARISON: 06/28/2017. FINDINGS: Bilateral pulmonary air space disease is unchanged with right worse than left. The heart is enlarged. There are sternal wires and mediastinal clips. There is no pleural effusion. There is no pneumothorax. IMPRESSION: 1. No change from 06/28/2017. RPTAT: QQ .Akshat Irvin MD, MD Date Time Electronically viewed and signed by .Akshat Irvin MD, MD on 06/29/2017 07:31 .R/
[2017-06-29] MEDS: ASPIRIN 81 MG TAB PO SCH (08:53)
[2017-06-29] MEDS: FAMOTIDINE 20 MG TAB PO SCH ×2 (08:53→20:53)
[2017-06-29] MEDS: CEFEPIME 1GM/50 ML (PMX) 50 ML IVPB SCH ×2 (08:54→20:52)
[2017-06-29] MEDS: FUROSEMIDE 20 MG INJ IV SCH (08:54)
--- NOTE | 2017-06-29 08:59 | CONS ---
Date/Time of Note Date/Time of Note DATE: 06/29/17 TIME: 08:57 Assessment/Plan Assessment/Plan Chief Complaint/Hosp Course Respiratory failure, on BiPAP Pneumonia Acute decompensated systolic and diastolic congestive heart failure CAD with history of CABG Cardiomegaly with ejection fraction 50% Sepsis Problems: Additional Assessment/Plan will start lisinopril 2.5 mg po daily Consultation Date/Type/Reason Admit Date/Time Jun 24, 2017 at 11:58 Initial Consult Date 06/24/17 Type of Consultation: cv Referring Provider: NICOLA EUBANKS MD 24 HR Interval Summary Free Text/Dictation no sob or chest pain while sitting Detailed Summary Respiratory: no complaints Cardiovascular: no complaints Gastrointestinal: no complaints Musculoskeletal: no complaints Skin: no complaints Neurologic: no complaints Endocrine: no complaints Lymphatic: no complaints Exam/Review of Systems Vital Signs Vitals Vital Signs Date Time Temp Pulse Resp B/P Pulse Ox O2 Delivery O2 Flow Rate FiO2 06/29/17 08:00 96.6 68 22 134/66 95 High Flow 06/29/17 05:05 45 06/26/17 17:40 15.0 Intake and Output 06/28/17 06/28/17 06/29/17 15:00 23:00 07:00 Intake Total 420 ml 275 ml 670 ml Output Total 850 ml 450 ml 400 ml Balance -430 ml -175 ml 270 ml Exam Constitutional: alert, oriented, well developed Head: atraumatic, normocephalic Neck: supple Respiratory: clear to auscultation Cardiovascular: regular rate and rhythm Gastrointestinal: soft Musculoskeletal: nl extremities to inspection Extremities: normal pulses Neurological: STUDENT TEACHER II-XII intact Results Result Diagram: 06/29/17 0508 06/29/17 0508 Results 24 hrs Laboratory Tests Test 06/28/17 11:54 06/28/17 13:40 06/28/17 17:05 06/28/17 19:21 Bedside Glucose 110 97 Hemoglobin 7.5 L 7.9 L Hematocrit 24.0 L 24.6 L Test 06/28/17 20:59 06/29/17 00:50 06/29/17 01:51 06/29/17 05:08 Bedside Glucose 135 202 Hemoglobin 8.2 L 8.0 L Hematocrit 25.6 L 25.4 L White Blood Count 15.8 H Red Blood Count 2.75 L Mean Corpuscular Volume 92.4 Mean Corpuscular Hemoglobin 29.1 Mean Corpuscular Hemoglobin Concent 31.5 L Red Cell Distribution Width 15.3 H Platelet Count 292 # Mean Platelet Volume 11.3 H Neutrophils % Lymphocytes % Monocytes % Eosinophils % Basophils % Nucleated Red Blood Cells % 0.2 H Neutrophils # Lymphocytes # Monocytes # Eosinophils # Basophils # Nucleated Red Blood Cells # Sodium Level 146 H Potassium Level 4.2 Chloride Level 108 Carbon Dioxide Level 30 Anion Gap 12 Blood Urea Nitrogen 19 Creatinine 0.62 Glucose Level 176 Calcium Level 8.2 L Magnesium Level 2.5 Total Bilirubin 0.2 Direct Bilirubin 0.00 Indirect Bilirubin 0.2 Aspartate Amino Transf (AST/SGOT) 91 H Alanine Aminotransferase (ALT/SGPT) 96 H Alkaline Phosphatase 161 H Total Protein 7.1 Albumin 3.2 L Globulin 3.90 H Albumin/Globulin Ratio 0.82 Medications Medications Current Medications Ondansetron HCl (Zofran Inj) 4 mg Q6H PRN IV NAUSEA AND/OR VOMITING; Start at 13:30 Aspirin (Aspirin) 81 mg DAILY PO Last administered on 06/29/17 08:53; Admin Dose 81 MG; Start 06/25/17 at 09:00 Acetaminophen 650 mg 650 mg Q6H PRN PO PAIN LEVEL 1-3 OR FEVER Last administered on 06/25/17 20:58; Admin Dose 650 MG; Start 06/24/17 at 13:30 Azithromycin (Zithromax 500mg/ NS (Pmx)) 250 ml @ 250 mls/hr Q24H IVPB Last administered on 06/28/17 08:32; Admin Dose 250 MLS/HR; Start 06/25/17 at 10:00 Carvedilol (Coreg) 3.125 mg BID PO Last administered on 06/29/17 08:54; Admin Dose 3.125 MG; Start 06/24/17 at 21:00 Gabapentin (Neurontin) 300 mg QHS PO Last administered on 06/28/17 20:57; Admin Dose 300 MG; Start 06/24/17 at 21:00 Tamsulosin HCl (Flomax) 0.4 mg HS PO Last administered on 06/28/17 20:56; Admin Dose 0.4 MG; Start 06/24/17 at 21:00 Atorvastatin Calcium (Lipitor) 10 mg DAILY@21 PO Last administered on 20:56; Admin Dose 10 MG; Start 06/24/17 at 21:00 Diagnostic Test (Pha) (Accu-Chek) 1 ea 02 XX Last administered on 06/25/17 02: 14; Admin Dose 1 EA; Start 06/25/17 at 02:00 Miscellaneous Information 1 ea NOTE XX ; Start 06/24/17 at 15:00 Glucose (Glutose) 15 gm Q15M PRN PO DECREASED GLUCOSE; Start 06/24/17 at 15:00 Glucose (Glutose) 22.5 gm Q15M PRN PO DECREASED GLUCOSE; Start 06/24/17 at 15: 00 Dextrose (D50w Syringe) 25 ml Q15M PRN IV DECREASED GLUCOSE; Start 06/24/17 at 15:00 Dextrose (D50w Syringe) 50 ml Q15M PRN IV DECREASED GLUCOSE; Start 06/24/17 at 15:00 Glucagon (Glucagen) 1 mg Q15M PRN IM DECREASED GLUCOSE; Start 06/24/17 at 15:00 Glucose (Glutose) 15 gm Q15M PRN BUCCAL DECREASED GLUCOSE; Start 06/24/17 at 15 :00 Albuterol 2.5 mg 2.5 mg Q4 PRN HHN SHORTNESS OF BREATH; Start 06/24/17 at 15:00 Cefepime HCl (Maxipime 1gm/50 ml (Pmx)) 50 ml @ 100 mls/hr Q12 IVPB Last administered on 06/29/17 08:54; Admin Dose 100 MLS/HR; Start 06/24/17 at 21:00 Famotidine (Pepcid) 20 mg BID PO Last administered on 06/29/17 08:53; Admin Dose 20 MG; Start 06/25/17 at 21:00 Furosemide 20 mg 20 mg DAILY IV Last administered on 06/29/17 08:54; Admin Dose 20 MG; Start 06/27/17 at 09:00 Pantoprazole/ Sodium Chloride (Protonix Iv/NS) 100 ml @ 10 mls/hr Q10H IV Last administered on 06/29/17 02:10; Admin Dose 10 MLS/HR; Start 06/27/17 at 11 :00 Methylprednisolone Sodium Succinate 60 mg 60 mg Q6 IV Last administered on 06/29 06:00; Admin Dose 60 MG; Start 06/28/17 at 18:00 Vancomycin HCl/ Sodium Chloride (Vancocin/NS) 250 ml @ 83.333 mls/ hr Q8H IVPB Last administered on 06/29/17t 06:01; Admin Dose 83.333 MLS/HR; Start at 06:00 ZACH DAMON MD Jun 29, 2017 08:59
[2017-06-29 09:02] LABS: AADO2 Arterial 156.5 mmHg (7.0-24.0); Allen Test ACCEPTAB; MODE HFNC
--- NOTE | 2017-06-29 09:26 | PN ---
Date/Time of Note Date/Time of Note DATE: 06/29/17 TIME: 09:20 Assessment/Plan VTE Prophylaxis VTE Prophylaxis Intervention: contraindicated Lines/Catheters IV Catheter Type (from Nrs): Peripheral IV Urinary Cath still in place: No Assessment/Plan Assessment/Plan 1. Acute respiratory failure secondary to multifocal pneumonia - Condition improving and currently on high flow at 40% this am - ABG 7.45/46/75 - Pulmonology on board and recommendations appreciated. 2. Sepsis secondary to right lower lobe pneumonia - improving - still has elevated WBC but trending downwards - Pulmonology on board and recommendations appreciated. - Blood cultures negative 3. Multifocal pneumonia - On antibiotics and nebs PRN - continues on High flow O2 but requirement decreasing - CTA showed extensive dense consolidation in both lower lobes, left greater than right, with additional patchy consolidation in the lingula and medial right middle and right upper lobes. 4. Acute Upper GI bleed - GI on board and recommendations appreciated. EGD revealed esophageal ulceration with gastritis and duodenitis. - Patient continued on PPI drip and has no GI complaints 5. Nonspecific mediastinal and bilateral hilar adenopathy. 6. Acute decompensated diastolic heart failure - Cardiology on board and consult appreciated. - Daily IV diuretics with good output - Continue BB, aspirin, and statin - Lisinopril 2.5mg added today 7. hyponatremia- resolved - Will continue to monitor 8. transaminitis- stable - If worsens will order US RUQ - Will continue to monitor 9. Diabetes Mellitus - hold PO home medications - A1c 5.6 - mild ISS 10. h/o CAD s/p CABG 10 years ago 11. 17mm nodule with spiculation - Will need to further evaluation as outpatient. >35 mins of critical care time was spent with this patient, answering all questions and concerns. Subjective 24 Hr Interval Summary Free Text/Dictation Patient doing well and eating breakfast with no respiratory distress. Still on high flow O2 at 40%. Denies any abdominal pain, chest pain, shortness of breath , nausea, vomiting, or new complaints. No acute overnight events. Exam/Review of Systems Vital Signs Vitals Vital Signs Date Time Temp Pulse Resp B/P Pulse Ox O2 Delivery O2 Flow Rate FiO2 06/29/17 08:00 96.6 68 22 134/66 95 High Flow 06/29/17 05:05 45 06/26/17 17:40 15.0 Intake and Output 06/28/17 06/28/17 06/29/17 15:00 23:00 07:00 Intake Total 420 ml 275 ml 670 ml Output Total 850 ml 450 ml 400 ml Balance -430 ml -175 ml 270 ml Exam General: alert, awake, NAD, remains on high flow O2 HEENT: NC/AT, PERRL, EOMI CVS: regular rate and rhythm, no murmurs Lungs: Equal chest rise, diminished at bases b/l. no wheezing or crackles appreciated Abd: soft, NT, protuberant, no rebound or guarding Ext: no edema, cyanosis, ecchymosis, clubbing Skin: no rashes Results Result Diagram: 06/29/17 0508 06/29/17 0508 Results 24 hrs Laboratory Tests Test 06/28/17 11:54 06/28/17 13:40 06/28/17 17:05 06/28/17 19:21 Bedside Glucose 110 97 Hemoglobin 7.5 L 7.9 L Hematocrit 24.0 L 24.6 L Test 06/28/17 20:59 06/29/17 00:50 06/29/17 01:51 06/29/17 05:08 Bedside Glucose 135 202 Hemoglobin 8.2 L 8.0 L Hematocrit 25.6 L 25.4 L White Blood Count 15.8 H Red Blood Count 2.75 L Mean Corpuscular Volume 92.4 Mean Corpuscular Hemoglobin 29.1 Mean Corpuscular Hemoglobin Concent 31.5 L Red Cell Distribution Width 15.3 H Platelet Count 292 # Mean Platelet Volume 11.3 H Neutrophils % Lymphocytes % Monocytes % Eosinophils % Basophils % Nucleated Red Blood Cells % 0.2 H Neutrophils # Lymphocytes # Monocytes # Eosinophils # Basophils # Nucleated Red Blood Cells # Sodium Level 146 H Potassium Level 4.2 Chloride Level 108 Carbon Dioxide Level 30 Anion Gap 12 Blood Urea Nitrogen 19 Creatinine 0.62 Glucose Level 176 Calcium Level 8.2 L Magnesium Level 2.5 Total Bilirubin 0.2 Direct Bilirubin 0.00 Indirect Bilirubin 0.2 Aspartate Amino Transf (AST/SGOT) 91 H Alanine Aminotransferase (ALT/SGPT) 96 H Alkaline Phosphatase 161 H Total Protein 7.1 Albumin 3.2 L Globulin 3.90 H Albumin/Globulin Ratio 0.82 Test 06/29/17 07:00 06/29/17 09:05 Blood Gas Specimen Source Blood arterial Arterial Blood Date Drawn 06/29/2017 8:40:10 AM Arterial Blood pH (Temp corrected) 7.457 H Arterial Blood pCO2 (Temp correct) 46.3 H Arterial Blood pO2 (Temp corrected) 75.5 L Arterial Blood HCO3 32.0 H Arterial Blood Base Excess 7.0 H Yandel Test ACCEPTAB Arterial Blood Gas Puncture Site Right Brachial Blood Gas A-a O2 Differential 156.5 H Blood Gas Temperature 37.0 Blood Gas Modality HFNC FiO2 40.0 Blood Gas Notified Whom DT Blood Gas Notified Time 06/29/2017 9:02:02 AM Bedside Glucose 176 Medications Medications Current Medications Ondansetron HCl (Zofran Inj) 4 mg Q6H PRN IV NAUSEA AND/OR VOMITING; Start at 13:30 Aspirin (Aspirin) 81 mg DAILY PO Last administered on 06/29/17 08:53; Admin Dose 81 MG; Start 06/25/17 at 09:00 Acetaminophen 650 mg 650 mg Q6H PRN PO PAIN LEVEL 1-3 OR FEVER Last administered on 06/25/17 20:58; Admin Dose 650 MG; Start 06/24/17 at 13:30 Azithromycin (Zithromax 500mg/ NS (Pmx)) 250 ml @ 250 mls/hr Q24H IVPB Last administered on 06/28/17 08:32; Admin Dose 250 MLS/HR; Start 06/25/17 at 10:00 Carvedilol (Coreg) 3.125 mg BID PO Last administered on 06/29/17 08:54; Admin Dose 3.125 MG; Start 06/24/17 at 21:00 Gabapentin (Neurontin) 300 mg QHS PO Last administered on 06/28/17 20:57; Admin Dose 300 MG; Start 06/24/17 at 21:00 Tamsulosin HCl (Flomax) 0.4 mg HS PO Last administered on 06/28/17 20:56; Admin Dose 0.4 MG; Start 06/24/17 at 21:00 Atorvastatin Calcium (Lipitor) 10 mg DAILY@21 PO Last administered on 20:56; Admin Dose 10 MG; Start 06/24/17 at 21:00 Diagnostic Test (Pha) (Accu-Chek) 1 ea 02 XX Last administered on 06/25/17 02: 14; Admin Dose 1 EA; Start 06/25/17 at 02:00 Miscellaneous Information 1 ea NOTE XX ; Start 06/24/17 at 15:00 Glucose (Glutose) 15 gm Q15M PRN PO DECREASED GLUCOSE; Start 06/24/17 at 15:00 Glucose (Glutose) 22.5 gm Q15M PRN PO DECREASED GLUCOSE; Start 06/24/17 at 15: 00 Dextrose (D50w Syringe) 25 ml Q15M PRN IV DECREASED GLUCOSE; Start 06/24/17 at 15:00 Dextrose (D50w Syringe) 50 ml Q15M PRN IV DECREASED GLUCOSE; Start 06/24/17 at 15:00 Glucagon (Glucagen) 1 mg Q15M PRN IM DECREASED GLUCOSE; Start 06/24/17 at 15:00 Glucose (Glutose) 15 gm Q15M PRN BUCCAL DECREASED GLUCOSE; Start 06/24/17 at 15 :00 Albuterol 2.5 mg 2.5 mg Q4 PRN HHN SHORTNESS OF BREATH; Start 06/24/17 at 15:00 Cefepime HCl (Maxipime 1gm/50 ml (Pmx)) 50 ml @ 100 mls/hr Q12 IVPB Last administered on 06/29/17 08:54; Admin Dose 100 MLS/HR; Start 06/24/17 at 21:00 Famotidine (Pepcid) 20 mg BID PO Last administered on 06/29/17 08:53; Admin Dose 20 MG; Start 06/25/17 at 21:00 Furosemide 20 mg 20 mg DAILY IV Last administered on 06/29/17 08:54; Admin Dose 20 MG; Start 06/27/17 at 09:00 Pantoprazole/ Sodium Chloride (Protonix Iv/NS) 100 ml @ 10 mls/hr Q10H IV Last administered on 06/29/17 02:10; Admin Dose 10 MLS/HR; Start 06/27/17 at 11 :00 Methylprednisolone Sodium Succinate 60 mg 60 mg Q6 IV Last administered on 06/29 06:00; Admin Dose 60 MG; Start 06/28/17 at 18:00 Vancomycin HCl/ Sodium Chloride (Vancocin/NS) 250 ml @ 83.333 mls/ hr Q8H IVPB Last administered on 9/23/17at 06:01; Admin Dose 83.333 MLS/HR; Start at 06:00 Lisinopril (Zestril) 2.5 mg DAILY PO ; Start 06/29/17 at 09:00; Status UNNICOLA JIMENEZ MD Jun 29, 2017 09:26
[2017-06-29 09:36] LABS: ERYTHROBLAST% (NRBC) (M) 2 % (0-0); GIANT THROMBO% (M) 3 % (0-0); METAMYELOCYTES %M 4 % (0-0); MONOCYTES % (M) 1 % (0-11); MYELOCYTES % (M) 3 % (0-0); PLATELET ESTIMATE NORMAL; POLYCHROMASIA 2+ (0-0); TOXIC GRANULATION 1+ (0-0)
--- NOTE | 2017-06-29 11:08 | CONS ---
Date/Time of Note Date/Time of Note DATE: 06/29/17 TIME: 11:05 Assessment/Plan Assessment/Plan Additional Assessment/Plan Chest x-ray was reviewed from today which is showing persistent pulmonary edema with cardiomegaly. assessment and recommendations; 1. Patient admitted for decompensated congestive heart failure with bibasilar pneumonia. Clinically improved. 2. Anemia, status post blood transfusion. 3. Prior history of CABG. Next 4. Likely underlying sleep apnea. Current treatment. Consultation Date/Type/Reason Admit Date/Time Jun 24, 2017 at 11:58 Initial Consult Date 06/24/17 Type of Consultation: Pulmonary/critical care Referring Provider: NICOLA EUBANKS MD 24 HR Interval Summary Free Text/Dictation Patient's condition is markedly improved. He is completely awake and alert. Complains of very minimal shortness of breath. Denies any chest pain. General exam; elderly male, awake and alert. Currently no distress. Exam/Review of Systems Vital Signs Vitals Vital Signs Date Time Temp Pulse Resp B/P Pulse Ox O2 Delivery O2 Flow Rate FiO2 06/29/17 10:20 98 6.0 06/29/17 08:00 96.6 68 22 134/66 High Flow 06/29/17 07:32 45 Intake and Output 06/28/17 06/28/17 06/29/17 15:00 23:00 07:00 Intake Total 420 ml 275 ml 670 ml Output Total 850 ml 450 ml 400 ml Balance -430 ml -175 ml 270 ml Exam HEENT exam; supple neck, positive JVD. No lymphadenopathy. Midline trachea. No thyromegaly. Fair dentition. Pupils are small bilaterally. Chest exam; diminished breath sounds bilaterally. There is a well-healed sternal scar. S1-S2 audible, no murmurs. Regular rhythm. Abdomen exam; soft, protuberant. Nontender. Bowel sounds audible. No organomegaly. Extremity exam; no peripheral edema. KAIAWHINA KOHANGA REO exam; no focal deficit Results Result Diagram: 06/29/17 0508 06/29/17 0508 Results 24 hrs Laboratory Tests Test 06/28/17 11:54 06/28/17 13:40 06/28/17 17:05 06/28/17 19:21 Bedside Glucose 110 97 Hemoglobin 7.5 L 7.9 L Hematocrit 24.0 L 24.6 L Test 06/28/17 20:59 06/29/17 00:50 06/29/17 01:51 06/29/17 05:08 Bedside Glucose 135 202 Hemoglobin 8.2 L 8.0 L Hematocrit 25.6 L 25.4 L White Blood Count 15.8 H Red Blood Count 2.75 L Mean Corpuscular Volume 92.4 Mean Corpuscular Hemoglobin 29.1 Mean Corpuscular Hemoglobin Concent 31.5 L Red Cell Distribution Width 15.3 H Platelet Count 292 # Mean Platelet Volume 11.3 H Neutrophils % Segmented Neutrophils % (Manual) 77 Band Neutrophils % (Manual) 5 H Lymphocytes % Lymphocytes % (Manual) 10 L Monocytes % Monocytes % (Manual) 1 Eosinophils % Basophils % Metamyelocytes % (manual) 4 H Myelocytes % (Manual) 3 H Nucleated Red Blood Cells % 2 H Neutrophils # Neutrophils # (Manual) 12.3 H Band Neutrophils # 0.7 H Absolute Lymphocytes (Manual) 1.5 Lymphocytes # Monocytes # Absolute Monocytes (Manual) 0.1 L Eosinophils # Basophils # Metamyelocytes # 0.6 H Myelocytes # 0.4 H Nucleated Red Blood Cells # Toxic Granulation 1+ Platelet Estimate NORMAL Giant Platelets 3 H Polychromasia 2+ Sodium Level 146 H Potassium Level 4.2 Chloride Level 108 Carbon Dioxide Level 30 Anion Gap 12 Blood Urea Nitrogen 19 Creatinine 0.62 Glucose Level 176 Calcium Level 8.2 L Magnesium Level 2.5 Total Bilirubin 0.2 Direct Bilirubin 0.00 Indirect Bilirubin 0.2 Aspartate Amino Transf (AST/SGOT) 91 H Alanine Aminotransferase (ALT/SGPT) 96 H Alkaline Phosphatase 161 H Total Protein 7.1 Albumin 3.2 L Globulin 3.90 H Albumin/Globulin Ratio 0.82 Test 06/29/17 07:00 06/29/17 09:05 Blood Gas Specimen Source Blood arterial Arterial Blood Date Drawn 06/29/2017 8:40:10 AM Arterial Blood pH (Temp corrected) 7.457 H Arterial Blood pCO2 (Temp correct) 46.3 H Arterial Blood pO2 (Temp corrected) 75.5 L Arterial Blood HCO3 32.0 H Arterial Blood Base Excess 7.0 H Yandel Test ACCEPTAB Arterial Blood Gas Puncture Site Right Brachial Blood Gas A-a O2 Differential 156.5 H Blood Gas Temperature 37.0 Blood Gas Modality HFNC FiO2 40.0 Blood Gas Notified Whom DT Blood Gas Notified Time 06/29/2017 9:02:02 AM Bedside Glucose 176 Medications Medications Current Medications Ondansetron HCl (Zofran Inj) 4 mg Q6H PRN IV NAUSEA AND/OR VOMITING; Start at 13:30 Aspirin (Aspirin) 81 mg DAILY PO Last administered on 06/29/17 08:53; Admin Dose 81 MG; Start 06/25/17 at 09:00 Acetaminophen 650 mg 650 mg Q6H PRN PO PAIN LEVEL 1-3 OR FEVER Last administered on 06/25/17 20:58; Admin Dose 650 MG; Start 06/24/17 at 13:30 Azithromycin (Zithromax 500mg/ NS (Pmx)) 250 ml @ 250 mls/hr Q24H IVPB Last administered on 06/28/17 08:32; Admin Dose 250 MLS/HR; Start 06/25/17 at 10:00 Carvedilol (Coreg) 3.125 mg BID PO Last administered on 06/29/17 08:54; Admin Dose 3.125 MG; Start 06/24/17 at 21:00 Gabapentin (Neurontin) 300 mg QHS PO Last administered on 06/28/17 20:57; Admin Dose 300 MG; Start 06/24/17 at 21:00 Tamsulosin HCl (Flomax) 0.4 mg HS PO Last administered on 06/28/17 20:56; Admin Dose 0.4 MG; Start 06/24/17 at 21:00 Atorvastatin Calcium (Lipitor) 10 mg DAILY@21 PO Last administered on 20:56; Admin Dose 10 MG; Start 06/24/17 at 21:00 Diagnostic Test (Pha) (Accu-Chek) 1 ea 02 XX Last administered on 06/25/17 02: 14; Admin Dose 1 EA; Start 06/25/17 at 02:00 Miscellaneous Information 1 ea NOTE XX ; Start 06/24/17 at 15:00 Glucose (Glutose) 15 gm Q15M PRN PO DECREASED GLUCOSE; Start 06/24/17 at 15:00 Glucose (Glutose) 22.5 gm Q15M PRN PO DECREASED GLUCOSE; Start 06/24/17 at 15: 00 Dextrose (D50w Syringe) 25 ml Q15M PRN IV DECREASED GLUCOSE; Start 06/24/17 at 15:00 Dextrose (D50w Syringe) 50 ml Q15M PRN IV DECREASED GLUCOSE; Start 06/24/17 at 15:00 Glucagon (Glucagen) 1 mg Q15M PRN IM DECREASED GLUCOSE; Start 06/24/17 at 15:00 Glucose (Glutose) 15 gm Q15M PRN BUCCAL DECREASED GLUCOSE; Start 06/24/17 at 15 :00 Albuterol 2.5 mg 2.5 mg Q4 PRN HHN SHORTNESS OF BREATH; Start 06/24/17 at 15:00 Cefepime HCl (Maxipime 1gm/50 ml (Pmx)) 50 ml @ 100 mls/hr Q12 IVPB Last administered on 06/29/17 08:54; Admin Dose 100 MLS/HR; Start 06/24/17 at 21:00 Famotidine (Pepcid) 20 mg BID PO Last administered on 06/29/17 08:53; Admin Dose 20 MG; Start 06/25/17 at 21:00 Furosemide 20 mg 20 mg DAILY IV Last administered on 06/29/17 08:54; Admin Dose 20 MG; Start 06/27/17 at 09:00 Pantoprazole/ Sodium Chloride (Protonix Iv/NS) 100 ml @ 10 mls/hr Q10H IV Last administered on 06/29/17 02:10; Admin Dose 10 MLS/HR; Start 06/27/17 at 11 :00 Methylprednisolone Sodium Succinate 60 mg 60 mg Q6 IV Last administered on 06/29 06:00; Admin Dose 60 MG; Start 06/28/17 at 18:00 Vancomycin HCl/ Sodium Chloride (Vancocin/NS) 250 ml @ 83.333 mls/ hr Q8H IVPB Last administered on 06/29/17 06:01; Admin Dose 83.333 MLS/HR; Start at 06:00 Lisinopril (Zestril) 2.5 mg DAILY PO ; Start 06/29/17 at 09:00 Miscellaneous Information (*Rx Drug Level Order Reminder*) VANCOMYCIN TROUGH AT 2100 ONCE ONCE XX ; Start 06/29/17 at 21:00; Stop 06/29/17 at 21:01 ABIGAIL MAC Jun 29, 2017 11:08
[2017-06-29] MEDS: AZITHROMYCIN 500MG/NS (PMX) 250 ML IVPB SCH (11:11)
[2017-06-29] MEDS: LISINOPRIL 5 MG TAB PO SCH (11:11)
[2017-06-29] MEDS: INSULIN ASPART [NOVOLOG] 3 ML PEN SC SCH ×4 (11:33→20:58)
[2017-06-29 12:46] LABS: HEMATOCRIT 24.7 % (42.0-52.0); HEMOGLOBIN 7.9 g/dl (14.0-18.0)
[2017-06-29 18:23] LABS: HEMATOCRIT 25.7 % (42.0-52.0)
[2017-06-29] MEDS: TAMSULOSIN (SR) 0.4 MG CAP PO SCH (20:53)
[2017-06-29] MEDS: ATORVASTATIN 10 MG TAB PO SCH (20:53)
[2017-06-29] MEDS: GABAPENTIN 300 MG CAP PO SCH (20:53)
[2017-06-30] VITALS (16 sets, daily range): BP systolic 94–127; BP diastolic 44–86; PULSE 54–70; RESP 15–30
[2017-06-30 00:44] LABS: HEMATOCRIT 24.4 % (42.0-52.0); HEMOGLOBIN 7.8 g/dl (14.0-18.0)
[2017-06-30] MEDS: ACCU-CHEK XX SCH (02:23)
[2017-06-30 05:50] LABS: ABNORMAL IP MESSAGE 1; HEMATOCRIT 24.3 % (42.0-52.0); HEMOGLOBIN 7.7 g/dl (14.0-18.0); MEAN CORPUSCULAR HEMOGLOBIN 29.4 pg (29.0-33.0); MEAN CORPUSCULAR HGB CONC 31.7 g/dl (32.0-37.0); MEAN CORPUSCULAR VOLUME 92.7 fl (82.0-101.0); MEAN PLATELET VOLUME 11.1 fl (7.4-10.4); NUCLEATED RED BLOOD CELLS% 0.1 /100WBC (0.0-0.0); PLATELET COUNT 359 10^3/UL (140-415); POSITIVE DIFF @See below; RED BLOOD COUNT 2.62 10^6/ul (4.70-6.10); RED CELL DISTRIBUTION WIDTH 15.4 % (11.5-14.5); WHITE BLOOD COUNT 24.4 10^3/ul (4.8-10.8)
[2017-06-30 06:10] LABS: ALBUMIN 2.8 g/dl (3.3-4.9); ALBUMIN/GLOBULIN RATIO 0.7; BILIRUBIN,INDIRECT 0.3 mg/dl (0-1.1); BILIRUBIN,TOTAL 0.3 mg/dl (0.2-1.3); CALCIUM 8.2 mg/dl (8.4-10.2); CREATININE 0.64 mg/dl (0.61-1.24); MAGNESIUM 2.2 mg/dl (1.7-2.5); TOTAL PROTEIN 6.8 g/dl (6.1-8.1)
[2017-06-30] MEDS: METHYLPREDNISOLONE 125 MG INJ IV SCH ×4 (06:33→23:58)
[2017-06-30] MEDS: VANCOMYCIN 1.5 GM in SOD CHLORIDE 0.9% 250 ML IVPB SCH ×3 (06:33→22:08)
[2017-06-30 07:46] LABS: ANISOCYTOSIS 1+ (0-0); GIANT THROMBO% (M) 1 % (0-0); HYPOCHROMASIA 1+ (0-0); METAMYELOCYTES %M 6 % (0-0); MONOCYTES % (M) 3 % (0-11); PLATELET ESTIMATE NORMAL; POLYCHROMASIA 1+ (0-0); PROMYELOCYTES #M 0 10^3/ul (0-0); PROMYELOCYTES % (M) 1 % (0-0); TOXIC GRANULATION 1+ (0-0)
[2017-06-30] MEDS: INSULIN ASPART [NOVOLOG] 3 ML PEN SC SCH ×4 (07:55→21:00)
[2017-06-30] MEDS: FUROSEMIDE 20 MG INJ IV SCH (08:52)
[2017-06-30] MEDS: LISINOPRIL 5 MG TAB PO SCH (08:53)
[2017-06-30] MEDS: ASPIRIN 81 MG TAB PO SCH (08:53)
[2017-06-30] MEDS: CEFEPIME 1GM/50 ML (PMX) 50 ML IVPB SCH ×2 (08:53→21:10)
[2017-06-30] MEDS: FAMOTIDINE 20 MG TAB PO SCH ×2 (08:53→21:11)
[2017-06-30] MEDS: PANTOPRAZOLE IV 80 MG in SOD CHLORIDE 0.9% 100 ML IV SCH (08:55)
[2017-06-30] MEDS: AZITHROMYCIN 500MG/NS (PMX) 250 ML IVPB SCH (10:44)
--- NOTE | 2017-06-30 12:21 | CONS ---
Date/Time of Note Date/Time of Note DATE: 06/30/17 TIME: 12:20 Assessment/Plan Assessment/Plan Additional Assessment/Plan Assessment and recommendations; 1. Patient admitted with CHF exacerbation with bibasilar pneumonia with persistent leukocytosis. Currently on appropriate broad-spectrum antibiotic coverage. 2. History of prior CABG. 3. Anemia. Continue current treatment. Consultation Date/Type/Reason Admit Date/Time Jun 24, 2017 at 11:58 Initial Consult Date 06/24/17 Type of Consultation: Pulmonary/critical care Referring Provider: NICOLA EUBANKS MD 24 HR Interval Summary Free Text/Dictation Patient's condition is stable. Denies any shortness of breath, chest pain, coughing or sputum production. General exam; elderly male, awake and alert. Currently in no distress. Appears moderately obese. Exam/Review of Systems Vital Signs Vitals Vital Signs Date Time Temp Pulse Resp B/P Pulse Ox O2 Delivery O2 Flow Rate FiO2 06/30/17 12:11 64 06/30/17 12:02 98.0 18 94/47 98 06/30/17 09:30 4.0 06/30/17 05:00 Nasal Cannula 06/29/17 07:32 45 Intake and Output 06/29/17 06/29/17 06/30/17 15:00 23:00 07:00 Intake Total 540 ml 370 ml 400 ml Output Total 590 ml 400 ml Balance -50 ml 370 ml 0 ml Exam HEENT exam; supple neck, positive JVD. No lymphadenopathy. Midline trachea. No thyromegaly. Pupils are small bilaterally. Patient has a multiple carious teeth. Chest exam; diminished but clear breath sounds. S1-S2 audible, no murmurs. Regular rhythm. There is a well-healed sternal scar. Abdomen exam; soft, no organomegaly. Nontender. Bowel sounds audible. Extremity exam; no edema. GRAPE CRUSHER exam; no focal deficit. Results Result Diagram: 06/30/17 0456 06/30/17 0456 Results 24 hrs Laboratory Tests Test 06/29/17 12:21 06/29/17 12:47 06/29/17 17:35 06/29/17 18:11 Hemoglobin 7.9 L 8.0 L Hematocrit 24.7 L 25.7 L Bedside Glucose 179 176 Test 06/29/17 20:56 06/29/17 21:10 06/30/17 00:32 06/30/17 02:17 Bedside Glucose 210 159 Vancomycin Level Trough 13.5 Hemoglobin 7.8 L Hematocrit 24.4 L Test 06/30/17 04:56 06/30/17 07:58 06/30/17 11:50 White Blood Count 24.4 #H Red Blood Count 2.62 L Hemoglobin 7.7 L Hematocrit 24.3 L Mean Corpuscular Volume 92.7 Mean Corpuscular Hemoglobin 29.4 Mean Corpuscular Hemoglobin Concent 31.7 L Red Cell Distribution Width 15.4 H Platelet Count 359 # Mean Platelet Volume 11.1 H Neutrophils % Segmented Neutrophils % (Manual) 68 Band Neutrophils % (Manual) 8 H Lymphocytes % Lymphocytes % (Manual) 14 L Monocytes % Monocytes % (Manual) 3 Eosinophils % Basophils % Metamyelocytes % (manual) 6 H Promyelocytes % (Manual) 1 H Nucleated Red Blood Cells % 0.1 H Neutrophils # Neutrophils # (Manual) 17.1 H Band Neutrophils # 1.9 H Absolute Lymphocytes (Manual) 3.4 H Lymphocytes # Monocytes # Absolute Monocytes (Manual) 0.7 Eosinophils # Basophils # Metamyelocytes # 1.4 H Promyelocytes # 0 Nucleated Red Blood Cells # Toxic Granulation 1+ Platelet Estimate NORMAL Giant Platelets 1 H Polychromasia 1+ Hypochromasia 1+ Anisocytosis 1+ Sodium Level 141 Potassium Level 4.0 Chloride Level 106 Carbon Dioxide Level 31 Anion Gap 8 Blood Urea Nitrogen 21 H Creatinine 0.64 Glucose Level 143 Calcium Level 8.2 L Magnesium Level 2.2 Total Bilirubin 0.3 Direct Bilirubin 0.00 Indirect Bilirubin 0.3 Aspartate Amino Transf (AST/SGOT) 57 H Alanine Aminotransferase (ALT/SGPT) 88 H Alkaline Phosphatase 139 H Total Protein 6.8 Albumin 2.8 L Globulin 4.00 H Albumin/Globulin Ratio 0.70 Bedside Glucose 162 172 Medications Medications Current Medications Ondansetron HCl (Zofran Inj) 4 mg Q6H PRN IV NAUSEA AND/OR VOMITING; Start at 13:30 Aspirin (Aspirin) 81 mg DAILY PO Last administered on 06/30/17 08:53; Admin Dose 81 MG; Start 06/25/17 at 09:00 Acetaminophen 650 mg 650 mg Q6H PRN PO PAIN LEVEL 1-3 OR FEVER Last administered on 06/25/17 20:58; Admin Dose 650 MG; Start 06/24/17 at 13:30 Azithromycin (Zithromax 500mg/ NS (Pmx)) 250 ml @ 250 mls/hr Q24H IVPB Last administered on 06/30/17 10:44; Admin Dose 250 MLS/HR; Start 06/25/17 at 10:00 Carvedilol (Coreg) 3.125 mg BID PO Last administered on 06/30/17 08:53; Admin Dose 3.125 MG; Start 06/24/17 at 21:00 Gabapentin (Neurontin) 300 mg QHS PO Last administered on 06/29/17 20:53; Admin Dose 300 MG; Start 06/24/17 at 21:00 Tamsulosin HCl (Flomax) 0.4 mg HS PO Last administered on 06/29/17 20:53; Admin Dose 0.4 MG; Start 06/24/17 at 21:00 Atorvastatin Calcium (Lipitor) 10 mg DAILY@21 PO Last administered on 20:53; Admin Dose 10 MG; Start 06/24/17 at 21:00 Diagnostic Test (Pha) (Accu-Chek) 1 ea 02 XX Last administered on 06/30/17 02: 23; Admin Dose 1 EA; Start 06/25/17 at 02:00 Miscellaneous Information 1 ea NOTE XX ; Start 06/24/17 at 15:00 Glucose (Glutose) 15 gm Q15M PRN PO DECREASED GLUCOSE; Start 06/24/17 at 15:00 Glucose (Glutose) 22.5 gm Q15M PRN PO DECREASED GLUCOSE; Start 06/24/17 at 15: 00 Dextrose (D50w Syringe) 25 ml Q15M PRN IV DECREASED GLUCOSE; Start 06/24/17 at 15:00 Dextrose (D50w Syringe) 50 ml Q15M PRN IV DECREASED GLUCOSE; Start 06/24/17 at 15:00 Glucagon (Glucagen) 1 mg Q15M PRN IM DECREASED GLUCOSE; Start 06/24/17 at 15:00 Glucose (Glutose) 15 gm Q15M PRN BUCCAL DECREASED GLUCOSE; Start 06/24/17 at 15 :00 Albuterol 2.5 mg 2.5 mg Q4 PRN HHN SHORTNESS OF BREATH; Start 06/24/17 at 15:00 Cefepime HCl (Maxipime 1gm/50 ml (Pmx)) 50 ml @ 100 mls/hr Q12 IVPB Last administered on 06/30/17 08:53; Admin Dose 100 MLS/HR; Start 06/24/17 at 21:00 Famotidine (Pepcid) 20 mg BID PO Last administered on 06/30/17 08:53; Admin Dose 20 MG; Start 06/25/17 at 21:00 Furosemide 20 mg 20 mg DAILY IV Last administered on 06/30/17 08:52; Admin Dose 20 MG; Start 06/27/17 at 09:00 Pantoprazole/ Sodium Chloride (Protonix Iv/NS) 100 ml @ 10 mls/hr Q10H IV Last administered on 06/30/17 08:55; Admin Dose 10 MLS/HR; Start 06/27/17 at 11 :00 Methylprednisolone Sodium Succinate 60 mg 60 mg Q6 IV Last administered on 06/30 06:33; Admin Dose 60 MG; Start 06/28/17 at 18:00 Vancomycin HCl/ Sodium Chloride (Vancocin/NS) 250 ml @ 83.333 mls/ hr Q8H IVPB Last administered on 06/30/17 06:33; Admin Dose 83.333 MLS/HR; Start at 06:00 Lisinopril (Zestril) 2.5 mg DAILY PO Last administered on 06/30/17 08:53; Admin Dose 2.5 MG; Start 06/29/17 at 09:00 ABIGAIL MAC Jun 30, 2017 12:21
[2017-06-30 13:13] LABS: HEMATOCRIT 25.5 % (42.0-52.0); HEMOGLOBIN 8.1 g/dl (14.0-18.0)
--- NOTE | 2017-06-30 13:46 | PN ---
DATE: 06/30/2017 SUBJECTIVE DATA: Patient was a transfer from ICU last night and is feeling much better. PHYSICAL EXAMINATION: VITAL SIGNS: Temperature 98, pulse of 67, blood pressure 94/47. LUNGS: Reveal continued rhonchi. HEART: Rate is regular. No murmurs appreciated. ABDOMEN: Obese. EXTREMITIES: No edema. LABORATORY AND DIAGNOSTIC DATA: White count 24.4, hematocrit 24.3, platelet count of 359. Sodium 141, potassium 4.0, BUN 21, creatinine 0.6. Lactic acid 3.2. ASSESSMENT: 1. Pneumonia with leukocytosis on broad spectrum antibiotics. 2. History of coronary artery bypass grafting, severe anemia on PPI infusion. Slow clinical improvement. Will discontinue the ANTIONETTE inhibitor due to borderline pressures. Continue diuretics as tolerated. Dictated By: Naseem Romero MD /[email or web address]/ /Document#: [id number]
--- NOTE | 2017-06-30 14:10 | PN ---
Date/Time of Note Date/Time of Note DATE: 06/30/17 TIME: 14:04 Assessment/Plan VTE Prophylaxis VTE Prophylaxis Intervention: SCD's Lines/Catheters IV Catheter Type (from [facility]): Peripheral IV Urinary Cath still in place: No Assessment/Plan Chief Complaint/Hosp Course Summary of Assessment and Plan Assessment: Severe anemia GI bleeding/melena EGD 06/28/2017 Extensive esophageal ulceration. No evidence of active or recent bleeding. Hiatal hernia Moderate gastritis. Moderate duodenitis. Acute hypoxemic and hypercapnic respiratory failure Bibasilar pneumonia likely community-acquired pneumonia. Spiculated lesion on chest CT concerning for possible underlying malignancy Probable underlying obstructive sleep apnea Possible COPD component Plan: Continue present regimen Switch Protonix to p.o. 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 Peripheral pulses present within normal limits, no cyanosis, clubbing or edemas. No pulsatile abdominal mass Respiratory: Lungs clear to auscultation and percussion, no wheezing, no rubs Gastrointestinal and Liver: Abdomen: Soft, non tender, non-distended, no hernias , no masses, no organomegaly, no ascites, no guarding, no rebound tenderness, normoactive bowel sounds. Extremities: No cyanosis, clubbing, or edema. Diagnostic Studies: Available data and images were reviewed personally. See reports. Significant results and findings are addressed here or in the assessment and plan. Problems: Exam/Review of Systems Vital Signs Vitals Vital Signs Date Time Temp Pulse Resp B/P Pulse Ox O2 Delivery O2 Flow Rate FiO2 06/30/17 12:11 64 06/30/17 12:02 98.0 18 94/47 98 06/30/17 09:30 4.0 06/30/17 05:00 Nasal Cannula 06/29/17 07:32 45 Intake and Output 06/29/17 06/29/17 06/30/17 15:00 23:00 07:00 Intake Total 540 ml 370 ml 400 ml Output Total 590 ml 400 ml Balance -50 ml 370 ml 0 ml Results Result Diagram: 06/30/17 1224 06/30/17 0456 Results 24 hrs Laboratory Tests Test 06/29/17 17:35 06/29/17 18:11 06/29/17 20:56 06/29/17 21:10 Bedside Glucose 176 210 Hemoglobin 8.0 L Hematocrit 25.7 L Vancomycin Level Trough 13.5 Test 06/30/17 00:32 06/30/17 02:17 06/30/17 04:56 06/30/17 07:58 Hemoglobin 7.8 L 7.7 L Hematocrit 24.4 L 24.3 L Bedside Glucose 159 162 White Blood Count 24.4 #H Red Blood Count 2.62 L Mean Corpuscular Volume 92.7 Mean Corpuscular Hemoglobin 29.4 Mean Corpuscular Hemoglobin Concent 31.7 L Red Cell Distribution Width 15.4 H Platelet Count 359 # Mean Platelet Volume 11.1 H Neutrophils % Segmented Neutrophils % (Manual) 68 Band Neutrophils % (Manual) 8 H Lymphocytes % Lymphocytes % (Manual) 14 L Monocytes % Monocytes % (Manual) 3 Eosinophils % Basophils % Metamyelocytes % (manual) 6 H Promyelocytes % (Manual) 1 H Nucleated Red Blood Cells % 0.1 H Neutrophils # Neutrophils # (Manual) 17.1 H Band Neutrophils # 1.9 H Absolute Lymphocytes (Manual) 3.4 H Lymphocytes # Monocytes # Absolute Monocytes (Manual) 0.7 Eosinophils # Basophils # Metamyelocytes # 1.4 H Promyelocytes # 0 Nucleated Red Blood Cells # Toxic Granulation 1+ Platelet Estimate NORMAL Giant Platelets 1 H Polychromasia 1+ Hypochromasia 1+ Anisocytosis 1+ Sodium Level 141 Potassium Level 4.0 Chloride Level 106 Carbon Dioxide Level 31 Anion Gap 8 Blood Urea Nitrogen 21 H Creatinine 0.64 Glucose Level 143 Calcium Level 8.2 L Magnesium Level 2.2 Total Bilirubin 0.3 Direct Bilirubin 0.00 Indirect Bilirubin 0.3 Aspartate Amino Transf (AST/SGOT) 57 H Alanine Aminotransferase (ALT/SGPT) 88 H Alkaline Phosphatase 139 H Total Protein 6.8 Albumin 2.8 L Globulin 4.00 H Albumin/Globulin Ratio 0.70 Test 06/30/17 11:50 06/30/17 12:24 Bedside Glucose 172 Hemoglobin 8.1 L Hematocrit 25.5 L Medications Medications Current Medications Ondansetron HCl (Zofran Inj) 4 mg Q6H PRN IV NAUSEA AND/OR VOMITING; Start at 13:30 Aspirin (Aspirin) 81 mg DAILY PO Last administered on 06/30/17 08:53; Admin Dose 81 MG; Start 06/25/17 at 09:00 Acetaminophen 650 mg 650 mg Q6H PRN PO PAIN LEVEL 1-3 OR FEVER Last administered on 06/25/17 20:58; Admin Dose 650 MG; Start 06/24/17 at 13:30 Azithromycin (Zithromax 500mg/ NS (Pmx)) 250 ml @ 250 mls/hr Q24H IVPB Last administered on 06/30/17 10:44; Admin Dose 250 MLS/HR; Start 06/25/17 at 10:00 Carvedilol (Coreg) 3.125 mg BID PO Last administered on 06/30/17 08:53; Admin Dose 3.125 MG; Start 06/24/17 at 21:00 Gabapentin (Neurontin) 300 mg QHS PO Last administered on 06/29/17 20:53; Admin Dose 300 MG; Start 06/24/17 at 21:00 Tamsulosin HCl (Flomax) 0.4 mg HS PO Last administered on 06/29/17 20:53; Admin Dose 0.4 MG; Start 06/24/17 at 21:00 Atorvastatin Calcium (Lipitor) 10 mg DAILY@21 PO Last administered on 20:53; Admin Dose 10 MG; Start 06/24/17 at 21:00 Diagnostic Test (Pha) (Accu-Chek) 1 ea 02 XX Last administered on 06/30/17 02: 23; Admin Dose 1 EA; Start 06/25/17 at 02:00 Miscellaneous Information 1 ea NOTE XX ; Start 06/24/17 at 15:00 Glucose (Glutose) 15 gm Q15M PRN PO DECREASED GLUCOSE; Start 06/24/17 at 15:00 Glucose (Glutose) 22.5 gm Q15M PRN PO DECREASED GLUCOSE; Start 06/24/17 at 15: 00 Dextrose (D50w Syringe) 25 ml Q15M PRN IV DECREASED GLUCOSE; Start 06/24/17 at 15:00 Dextrose (D50w Syringe) 50 ml Q15M PRN IV DECREASED GLUCOSE; Start 06/24/17 at 15:00 Glucagon (Glucagen) 1 mg Q15M PRN IM DECREASED GLUCOSE; Start 06/24/17 at 15:00 Glucose (Glutose) 15 gm Q15M PRN BUCCAL DECREASED GLUCOSE; Start 06/24/17 at 15 :00 Albuterol 2.5 mg 2.5 mg Q4 PRN HHN SHORTNESS OF BREATH; Start 06/24/17 at 15:00 Cefepime HCl (Maxipime 1gm/50 ml (Pmx)) 50 ml @ 100 mls/hr Q12 IVPB Last administered on 06/30/17 08:53; Admin Dose 100 MLS/HR; Start 06/24/17 at 21:00 Famotidine (Pepcid) 20 mg BID PO Last administered on 06/30/17 08:53; Admin Dose 20 MG; Start 06/25/17 at 21:00 Furosemide 20 mg 20 mg DAILY IV Last administered on 06/30/17 08:52; Admin Dose 20 MG; Start 06/27/17 at 09:00 Pantoprazole/ Sodium Chloride (Protonix Iv/NS) 100 ml @ 10 mls/hr Q10H IV Last administered on 06/30/17 08:55; Admin Dose 10 MLS/HR; Start 06/27/17 at 11 :00 Methylprednisolone Sodium Succinate 60 mg 60 mg Q6 IV Last administered on 06/30 12:34; Admin Dose 60 MG; Start 06/28/17 at 18:00 Vancomycin HCl/ Sodium Chloride (Vancocin/NS) 250 ml @ 83.333 mls/ hr Q8H IVPB Last administered on 06/30/17 06:33; Admin Dose 83.333 MLS/HR; Start at 06:00 LINDA PORTER MD Jun 30, 2017 14:10
--- NOTE | 2017-06-30 17:12 | PN ---
Date/Time of Note Date/Time of Note DATE: 06/30/17 TIME: 17:06 Assessment/Plan VTE Prophylaxis VTE Prophylaxis Intervention: contraindicated, SCD's Lines/Catheters IV Catheter Type (from Nrs): Peripheral IV Urinary Cath still in place: No Assessment/Plan Assessment/Plan 1. Acute respiratory failure secondary to multifocal pneumonia - Condition improving and currently NC - most likely component of COPD contributing to respiratory distress - Pulmonology on board and recommendations appreciated. will continue current management 2. Sepsis secondary to right lower lobe pneumonia - improving - Pulmonology on board and recommendations appreciated. - Blood cultures negative 3. Multifocal pneumonia - On antibiotics and nebs PRN - Tolerating NC - CTA showed extensive dense consolidation in both lower lobes, left greater than right, with additional patchy consolidation in the lingula and medial right middle and right upper lobes. 4. Acute Upper GI bleed - GI on board and recommendations appreciated. EGD revealed esophageal ulceration with gastritis and duodenitis. - Patient continued on PO PPI and monitor for acute bleed 5. Nonspecific mediastinal and bilateral hilar adenopathy. 6. Acute decompensated diastolic heart failure - Cardiology on board and consult appreciated. - Daily IV diuretics with good output - Continue BB, aspirin, and statin - Lisinopril d/c due to borderline pressure 7. hyponatremia- resolved - Will continue to monitor 8. transaminitis- stable - Will continue to monitor 9. Diabetes Mellitus - hold PO home medications - A1c 5.6 - mild ISS 10. h/o CAD s/p CABG 10 years ago 11. 17mm nodule with spiculation - Will need to further evaluation as outpatient. Subjective 24 Hr Interval Summary Free Text/Dictation Patient transferred to telemetry overnight. resting comfortably and no acute distress. Currently on NC and not wearing consistently due to discomfort. Advised importance of keeping O2 on to avoid desaturation. No acute overnight events. Exam/Review of Systems Vital Signs Vitals Vital Signs Date Time Temp Pulse Resp B/P Pulse Ox O2 Delivery O2 Flow Rate FiO2 06/30/17 16:29 58 06/30/17 16:22 98.0 18 121/58 98 06/30/17 09:30 4.0 06/30/17 05:00 Nasal Cannula 06/29/17 07:32 45 Intake and Output 06/29/17 06/29/17 06/30/17 15:00 23:00 07:00 Intake Total 540 ml 370 ml 400 ml Output Total 590 ml 400 ml Balance -50 ml 370 ml 0 ml Exam General: alert, awake, NAD, remains on high flow O2 HEENT: NC/AT, PERRL, EOMI CVS: regular rate and rhythm, no murmurs Lungs: Equal chest rise, diminished at bases b/l. no wheezing or crackles appreciated Abd: soft, NT, protuberant, no rebound or guarding Ext: no edema, cyanosis, ecchymosis, clubbing Skin: no rashes Results Result Diagram: 06/30/17 1224 06/30/17 0456 Results 24 hrs Laboratory Tests Test 06/29/17 17:35 06/29/17 18:11 06/29/17 20:56 06/29/17 21:10 Bedside Glucose 176 210 Hemoglobin 8.0 L Hematocrit 25.7 L Vancomycin Level Trough 13.5 Test 06/30/17 00:32 06/30/17 02:17 06/30/17 04:56 06/30/17 07:58 Hemoglobin 7.8 L 7.7 L Hematocrit 24.4 L 24.3 L Bedside Glucose 159 162 White Blood Count 24.4 #H Red Blood Count 2.62 L Mean Corpuscular Volume 92.7 Mean Corpuscular Hemoglobin 29.4 Mean Corpuscular Hemoglobin Concent 31.7 L Red Cell Distribution Width 15.4 H Platelet Count 359 # Mean Platelet Volume 11.1 H Neutrophils % Segmented Neutrophils % (Manual) 68 Band Neutrophils % (Manual) 8 H Lymphocytes % Lymphocytes % (Manual) 14 L Monocytes % Monocytes % (Manual) 3 Eosinophils % Basophils % Metamyelocytes % (manual) 6 H Promyelocytes % (Manual) 1 H Nucleated Red Blood Cells % 0.1 H Neutrophils # Neutrophils # (Manual) 17.1 H Band Neutrophils # 1.9 H Absolute Lymphocytes (Manual) 3.4 H Lymphocytes # Monocytes # Absolute Monocytes (Manual) 0.7 Eosinophils # Basophils # Metamyelocytes # 1.4 H Promyelocytes # 0 Nucleated Red Blood Cells # Toxic Granulation 1+ Platelet Estimate NORMAL Giant Platelets 1 H Polychromasia 1+ Hypochromasia 1+ Anisocytosis 1+ Sodium Level 141 Potassium Level 4.0 Chloride Level 106 Carbon Dioxide Level 31 Anion Gap 8 Blood Urea Nitrogen 21 H Creatinine 0.64 Glucose Level 143 Calcium Level 8.2 L Magnesium Level 2.2 Total Bilirubin 0.3 Direct Bilirubin 0.00 Indirect Bilirubin 0.3 Aspartate Amino Transf (AST/SGOT) 57 H Alanine Aminotransferase (ALT/SGPT) 88 H Alkaline Phosphatase 139 H Total Protein 6.8 Albumin 2.8 L Globulin 4.00 H Albumin/Globulin Ratio 0.70 Test 06/30/17 11:50 06/30/17 12:24 06/30/17 16:52 Bedside Glucose 172 151 Hemoglobin 8.1 L Hematocrit 25.5 L Medications Medications Current Medications Ondansetron HCl (Zofran Inj) 4 mg Q6H PRN IV NAUSEA AND/OR VOMITING; Start at 13:30 Aspirin (Aspirin) 81 mg DAILY PO Last administered on 06/30/17 08:53; Admin Dose 81 MG; Start 06/25/17 at 09:00 Acetaminophen 650 mg 650 mg Q6H PRN PO PAIN LEVEL 1-3 OR FEVER Last administered on 06/25/17 20:58; Admin Dose 650 MG; Start 06/24/17 at 13:30 Azithromycin (Zithromax 500mg/ NS (Pmx)) 250 ml @ 250 mls/hr Q24H IVPB Last administered on 06/30/17 10:44; Admin Dose 250 MLS/HR; Start 06/25/17 at 10:00 Carvedilol (Coreg) 3.125 mg BID PO Last administered on 06/30/17 08:53; Admin Dose 3.125 MG; Start 06/24/17 at 21:00 Gabapentin (Neurontin) 300 mg QHS PO Last administered on 06/29/17 20:53; Admin Dose 300 MG; Start 06/24/17 at 21:00 Tamsulosin HCl (Flomax) 0.4 mg HS PO Last administered on 06/29/17 20:53; Admin Dose 0.4 MG; Start 06/24/17 at 21:00 Atorvastatin Calcium (Lipitor) 10 mg DAILY@21 PO Last administered on 20:53; Admin Dose 10 MG; Start 06/24/17 at 21:00 Diagnostic Test (Pha) (Accu-Chek) 1 ea 02 XX Last administered on 06/30/17 02: 23; Admin Dose 1 EA; Start 06/25/17 at 02:00 Miscellaneous Information 1 ea NOTE XX ; Start 06/24/17 at 15:00 Glucose (Glutose) 15 gm Q15M PRN PO DECREASED GLUCOSE; Start 06/24/17 at 15:00 Glucose (Glutose) 22.5 gm Q15M PRN PO DECREASED GLUCOSE; Start 06/24/17 at 15: 00 Dextrose (D50w Syringe) 25 ml Q15M PRN IV DECREASED GLUCOSE; Start 06/24/17 at 15:00 Dextrose (D50w Syringe) 50 ml Q15M PRN IV DECREASED GLUCOSE; Start 06/24/17 at 15:00 Glucagon (Glucagen) 1 mg Q15M PRN IM DECREASED GLUCOSE; Start 06/24/17 at 15:00 Glucose (Glutose) 15 gm Q15M PRN BUCCAL DECREASED GLUCOSE; Start 06/24/17 at 15 :00 Albuterol 2.5 mg 2.5 mg Q4 PRN HHN SHORTNESS OF BREATH; Start 06/24/17 at 15:00 Cefepime HCl (Maxipime 1gm/50 ml (Pmx)) 50 ml @ 100 mls/hr Q12 IVPB Last administered on 06/30/17 08:53; Admin Dose 100 MLS/HR; Start 06/24/17 at 21:00 Famotidine (Pepcid) 20 mg BID PO Last administered on 06/30/17 08:53; Admin Dose 20 MG; Start 06/25/17 at 21:00 Furosemide (Lasix) 20 mg DAILY IV Last administered on 06/30/17 08:52; Admin Dose 20 MG; Start 06/27/17 at 09:00 Methylprednisolone Sodium Succinate 60 mg 60 mg Q6 IV Last administered on 06/30 12:34; Admin Dose 60 MG; Start 06/28/17 at 18:00 Vancomycin HCl/ Sodium Chloride (Vancocin/NS) 250 ml @ 83.333 mls/ hr Q8H IVPB Last administered on 06/30/17 15:19; Admin Dose 83.333 MLS/HR; Start at 06:00 Pantoprazole (Protonix Tab) 40 mg BID@06,18 PO ; Start 06/30/17 at 18:00 NICOLA EUBANKS MD Jun 30, 2017 17:12
[2017-06-30] MEDS: PANTOPRAZOLE (EC) 40 MG TAB PO SCH (17:43)
[2017-06-30] MEDS: TAMSULOSIN (SR) 0.4 MG CAP PO SCH (21:11)
[2017-06-30] MEDS: GABAPENTIN 300 MG CAP PO SCH (21:11)
[2017-06-30] MEDS: ATORVASTATIN 10 MG TAB PO SCH (21:11)
[2017-07-01] VITALS (14 sets, daily range): BP systolic 108–134; BP diastolic 53–63; PULSE 43–65; RESP 16–19
[2017-07-01] MEDS: ACCU-CHEK XX SCH (02:00)
[2017-07-01] MEDS: PANTOPRAZOLE (EC) 40 MG TAB PO SCH ×2 (06:16→18:56)
[2017-07-01] MEDS: METHYLPREDNISOLONE 125 MG INJ IV SCH ×2 (06:17→12:40)
[2017-07-01] MEDS: VANCOMYCIN 1.5 GM in SOD CHLORIDE 0.9% 250 ML IVPB SCH ×3 (06:20→22:43)
[2017-07-01 07:53] LABS: ABNORMAL IP MESSAGE 1; BASOPHIL # 0.2 10^3/ul (0.0-0.1); BASOPHILS % 0.7 % (0.0-2.0); HEMATOCRIT 25.1 % (42.0-52.0); HEMOGLOBIN 7.9 g/dl (14.0-18.0); LYMPHOCYTES # 2.5 10^3/ul (0.8-2.9); LYMPHOCYTES % 11.3 % (15.0-51.0); MEAN CORPUSCULAR HEMOGLOBIN 29.5 pg (29.0-33.0); MEAN CORPUSCULAR HGB CONC 31.5 g/dl (32.0-37.0); MEAN CORPUSCULAR VOLUME 93.7 fl (82.0-101.0); MEAN PLATELET VOLUME 10.5 fl (7.4-10.4); MONOCYTE # 1.1 10^3/ul (0.3-0.9); MONOCYTES % 4.8 % (0.0-11.0); NEUTROPHIL # 15.6 10^3/ul (1.6-7.5); NUCLEATED RED BLOOD CELLS% 0.1 /100WBC (0.0-0.0); PLATELET COUNT 423 10^3/UL (140-415); POSITIVE DIFF @See below; RED BLOOD COUNT 2.68 10^6/ul (4.70-6.10); WHITE BLOOD COUNT 22.3 10^3/ul (4.8-10.8)
[2017-07-01 08:17] LABS: ALBUMIN/GLOBULIN RATIO 0.88; BILIRUBIN,INDIRECT 0.2 mg/dl (0-1.1); BILIRUBIN,TOTAL 0.2 mg/dl (0.2-1.3); CALCIUM 8.1 mg/dl (8.4-10.2); CREATININE 0.76 mg/dl (0.61-1.24); MAGNESIUM 2.3 mg/dl (1.7-2.5); POTASSIUM 4.2 mmol/L (3.5-5.1); TOTAL PROTEIN 6.4 g/dl (6.1-8.1)
[2017-07-01] MEDS: INSULIN ASPART [NOVOLOG] 3 ML PEN SC SCH ×4 (08:50→21:00)
[2017-07-01] MEDS: FUROSEMIDE 20 MG INJ IV SCH (09:44)
[2017-07-01] MEDS: FAMOTIDINE 20 MG TAB PO SCH ×2 (09:44→21:35)
[2017-07-01] MEDS: ASPIRIN 81 MG TAB PO SCH (09:44)
[2017-07-01] MEDS: CEFEPIME 1GM/50 ML (PMX) 50 ML IVPB SCH ×2 (10:20→21:35)
[2017-07-01] MEDS: AZITHROMYCIN 500MG/NS (PMX) 250 ML IVPB SCH (11:34)
--- NOTE | 2017-07-01 14:26 | CONS ---
Date/Time of Note Date/Time of Note DATE: 07/01/17 TIME: 14:24 Assessment/Plan Assessment/Plan Additional Assessment/Plan History of respiratory failure, improved Pneumonia Mild acute decompensated systolic and diastolic congestive heart failure CAD with history of CABG Cardiomegaly with ejection fraction 50% Sepsis -Blood pressure trend improved, continue diuretics as blood pressure and renal function permits. Antibiotics as per infectious disease. Consultation Date/Type/Reason Admit Date/Time Jun 24, 2017 at 11:58 Initial Consult Date 06/24/17 Type of Consultation: cv Referring Provider: NICOLA EUBANKS MD 24 HR Interval Summary Free Text/Dictation Shortness of breath continues to improve, denies chest pain Exam/Review of Systems Vital Signs Vitals Vital Signs Date Time Temp Pulse Resp B/P Pulse Ox O2 Delivery O2 Flow Rate FiO2 07/01/17 12:00 59 07/01/17 11:21 97.7 18 108/53 91 07/01/17 07:49 1.0 06/30/17 05:00 Nasal Cannula 06/29/17 07:32 45 Intake and Output 06/30/17 06/30/17 07/01/17 15:00 23:00 07:00 Intake Total 800 ml 670 ml Output Total 1300 ml 750 ml Balance -500 ml -80 ml Exam No dyspnea with speaking, on the phone Constitutional: alert, obese, oriented Head: normocephalic Respiratory: other (Coarse breath sounds bilaterally, scattered rhonchi, no wheezing) Cardiovascular: other (S1-S2 heard), regular rate and rhythm Gastrointestinal: bowel sounds, non-tender, soft Extremities: edema Results Result Diagram: 07/01/17 0731 07/01/17 0731 Results 24 hrs Laboratory Tests Test 06/30/17 16:52 06/30/17 21:08 07/01/17 07:31 07/01/17 08:46 Bedside Glucose 151 156 159 White Blood Count 22.3 H Red Blood Count 2.68 L Hemoglobin 7.9 L Hematocrit 25.1 L Mean Corpuscular Volume 93.7 Mean Corpuscular Hemoglobin 29.5 Mean Corpuscular Hemoglobin Concent 31.5 L Red Cell Distribution Width 16.0 H Platelet Count 423 H Mean Platelet Volume 10.5 H Neutrophils % 70.0 Lymphocytes % 11.3 L Monocytes % 4.8 Eosinophils % 0.0 Basophils % 0.7 Nucleated Red Blood Cells % 0.1 H Neutrophils # 15.6 H Lymphocytes # 2.5 Monocytes # 1.1 H Eosinophils # 0.0 Basophils # 0.2 H Nucleated Red Blood Cells # 0.0 Sodium Level 144 Potassium Level 4.2 Chloride Level 109 Carbon Dioxide Level 29 Anion Gap 10 Blood Urea Nitrogen 22 H Creatinine 0.76 Glucose Level 142 Calcium Level 8.1 L Magnesium Level 2.3 Total Bilirubin 0.2 Direct Bilirubin 0.00 Indirect Bilirubin 0.2 Aspartate Amino Transf (AST/SGOT) 66 H Alanine Aminotransferase (ALT/SGPT) 108 H Alkaline Phosphatase 118 Total Protein 6.4 Albumin 3.0 L Globulin 3.40 H Albumin/Globulin Ratio 0.88 Test 07/01/17 12:22 Bedside Glucose 179 Medications Medications Current Medications Ondansetron HCl (Zofran Inj) 4 mg Q6H PRN IV NAUSEA AND/OR VOMITING; Start at 13:30 Aspirin (Aspirin) 81 mg DAILY PO Last administered on 07/01/17 09:44; Admin Dose 81 MG; Start 06/25/17 at 09:00 Acetaminophen 650 mg 650 mg Q6H PRN PO PAIN LEVEL 1-3 OR FEVER Last administered on 06/25/17 20:58; Admin Dose 650 MG; Start 06/24/17 at 13:30 Azithromycin (Zithromax 500mg/ NS (Pmx)) 250 ml @ 250 mls/hr Q24H IVPB Last administered on 07/01/17 11:34; Admin Dose 250 MLS/HR; Start 06/25/17 at 10:00 Carvedilol (Coreg) 3.125 mg BID PO Last administered on 07/01/17 09:44; Admin Dose 3.125 MG; Start 06/24/17 at 21:00 Gabapentin (Neurontin) 300 mg QHS PO Last administered on 06/30/17 21:11; Admin Dose 300 MG; Start 06/24/17 at 21:00 Tamsulosin HCl (Flomax) 0.4 mg HS PO Last administered on 06/30/17 21:11; Admin Dose 0.4 MG; Start 06/24/17 at 21:00 Atorvastatin Calcium (Lipitor) 10 mg DAILY@21 PO Last administered on 21:11; Admin Dose 10 MG; Start 06/24/17 at 21:00 Diagnostic Test (Pha) (Accu-Chek) 1 ea 02 XX Last administered on 06/30/17 02: 23; Admin Dose 1 EA; Start 06/25/17 at 02:00 Miscellaneous Information 1 ea NOTE XX ; Start 06/24/17 at 15:00 Glucose (Glutose) 15 gm Q15M PRN PO DECREASED GLUCOSE; Start 06/24/17 at 15:00 Glucose (Glutose) 22.5 gm Q15M PRN PO DECREASED GLUCOSE; Start 06/24/17 at 15: 00 Dextrose (D50w Syringe) 25 ml Q15M PRN IV DECREASED GLUCOSE; Start 06/24/17 at 15:00 Dextrose (D50w Syringe) 50 ml Q15M PRN IV DECREASED GLUCOSE; Start 06/24/17 at 15:00 Glucagon (Glucagen) 1 mg Q15M PRN IM DECREASED GLUCOSE; Start 06/24/17 at 15:00 Glucose (Glutose) 15 gm Q15M PRN BUCCAL DECREASED GLUCOSE; Start 06/24/17 at 15 :00 Albuterol 2.5 mg 2.5 mg Q4 PRN HHN SHORTNESS OF BREATH; Start 06/24/17 at 15:00 Cefepime HCl (Maxipime 1gm/50 ml (Pmx)) 50 ml @ 100 mls/hr Q12 IVPB Last administered on 07/01/17 10:20; Admin Dose 100 MLS/HR; Start 06/24/17 at 21:00 Famotidine (Pepcid) 20 mg BID PO Last administered on 07/01/17 09:44; Admin Dose 20 MG; Start 06/25/17 at 21:00 Furosemide (Lasix) 20 mg DAILY IV Last administered on 07/01/17 09:44; Admin Dose 20 MG; Start 06/27/17 at 09:00 Methylprednisolone Sodium Succinate 60 mg 60 mg Q6 IV Last administered on 07/01 12:40; Admin Dose 60 MG; Start 06/28/17 at 18:00 Vancomycin HCl/ Sodium Chloride (Vancocin/NS) 250 ml @ 83.333 mls/ hr Q8H IVPB Last administered on 07/01/17 06:20; Admin Dose 83.333 MLS/HR; Start at 06:00 Pantoprazole (Protonix Tab) 40 mg BID@06,18 PO Last administered on 07/01/17t 06:16; Admin Dose 40 MG; Start 06/30/17 at 18:00 Miscellaneous Information (*Rx Drug Level Order Reminder*) 1 ONCE ONCE XX ; Start 07/01/17 at 21:00; Stop 07/01/17 at 21:01 Dennis Lopez DO Jul 01, 2017 14:26
--- NOTE | 2017-07-01 14:39 | CONS ---
Date/Time of Note Date/Time of Note DATE: 07/01/17 TIME: 14:38 Consult Date/Type/Reason Admit Date/Time Jun 24, 2017 at 11:58 Initial Consult Date 06/24/17 Type of Consultation: Pulmonary Ordering Provider: NICOLA EUBANKS MD Subjective Continues to improve. No shortness of breath. Objective Vital Signs Date Time Temp Pulse Resp B/P Pulse Ox O2 Delivery O2 Flow Rate FiO2 07/01/17 12:00 59 07/01/17 11:21 97.7 18 108/53 91 07/01/17 07:49 1.0 06/30/17 05:00 Nasal Cannula 06/29/17 07:32 45 Intake and Output 06/30/17 06/30/17 07/01/17 15:00 23:00 07:00 Intake Total 800 ml 670 ml Output Total 1300 ml 750 ml Balance -500 ml -80 ml Exam GENERAL: Well-nourished well-developed gentleman comfortable at rest VITAL SIGNS: per chart NECK: Supple. No JVD or lymphadenopathy. CARDIAC EXAM: S1, S2. No added sounds or murmurs. CHEST: Diminished air entry both lung hope ABDOMEN: Soft, nontender. No guarding or rebound. EXTREMITIES: No cyanosis, clubbing or edema. NEUROLOGIC: Generalized weakness. No focal deficits. Results/Medications Result Diagram: 07/01/1731 07/01/1731 Results 24 hrs Laboratory Tests Test 06/30/17 16:52 06/30/17 21:08 07/01/17 07:31 07/01/17 08:46 Bedside Glucose 151 156 159 White Blood Count 22.3 H Red Blood Count 2.68 L Hemoglobin 7.9 L Hematocrit 25.1 L Mean Corpuscular Volume 93.7 Mean Corpuscular Hemoglobin 29.5 Mean Corpuscular Hemoglobin Concent 31.5 L Red Cell Distribution Width 16.0 H Platelet Count 423 H Mean Platelet Volume 10.5 H Neutrophils % 70.0 Lymphocytes % 11.3 L Monocytes % 4.8 Eosinophils % 0.0 Basophils % 0.7 Nucleated Red Blood Cells % 0.1 H Neutrophils # 15.6 H Lymphocytes # 2.5 Monocytes # 1.1 H Eosinophils # 0.0 Basophils # 0.2 H Nucleated Red Blood Cells # 0.0 Sodium Level 144 Potassium Level 4.2 Chloride Level 109 Carbon Dioxide Level 29 Anion Gap 10 Blood Urea Nitrogen 22 H Creatinine 0.76 Glucose Level 142 Calcium Level 8.1 L Magnesium Level 2.3 Total Bilirubin 0.2 Direct Bilirubin 0.00 Indirect Bilirubin 0.2 Aspartate Amino Transf (AST/SGOT) 66 H Alanine Aminotransferase (ALT/SGPT) 108 H Alkaline Phosphatase 118 Total Protein 6.4 Albumin 3.0 L Globulin 3.40 H Albumin/Globulin Ratio 0.88 Test 07/01/17 12:22 Bedside Glucose 179 Medications Current Medications Ondansetron HCl (Zofran Inj) 4 mg Q6H PRN IV NAUSEA AND/OR VOMITING; Start at 13:30 Aspirin (Aspirin) 81 mg DAILY PO Last administered on 07/01/17 09:44; Admin Dose 81 MG; Start 06/25/17 at 09:00 Acetaminophen 650 mg 650 mg Q6H PRN PO PAIN LEVEL 1-3 OR FEVER Last administered on 06/25/17 20:58; Admin Dose 650 MG; Start 06/24/17 at 13:30 Azithromycin (Zithromax 500mg/ NS (Pmx)) 250 ml @ 250 mls/hr Q24H IVPB Last administered on 07/01/17 11:34; Admin Dose 250 MLS/HR; Start 06/25/17 at 10:00 Carvedilol (Coreg) 3.125 mg BID PO Last administered on 07/01/17 09:44; Admin Dose 3.125 MG; Start 06/24/17 at 21:00 Gabapentin (Neurontin) 300 mg QHS PO Last administered on 06/30/17 21:11; Admin Dose 300 MG; Start 06/24/17 at 21:00 Tamsulosin HCl (Flomax) 0.4 mg HS PO Last administered on 06/30/17 21:11; Admin Dose 0.4 MG; Start 06/24/17 at 21:00 Atorvastatin Calcium (Lipitor) 10 mg DAILY@21 PO Last administered on 21:11; Admin Dose 10 MG; Start 06/24/17 at 21:00 Diagnostic Test (Pha) (Accu-Chek) 1 ea 02 XX Last administered on 06/30/17 02: 23; Admin Dose 1 EA; Start 06/25/17 at 02:00 Miscellaneous Information 1 ea NOTE XX ; Start 06/24/17 at 15:00 Glucose (Glutose) 15 gm Q15M PRN PO DECREASED GLUCOSE; Start 06/24/17 at 15:00 Glucose (Glutose) 22.5 gm Q15M PRN PO DECREASED GLUCOSE; Start 06/24/17 at 15: 00 Dextrose (D50w Syringe) 25 ml Q15M PRN IV DECREASED GLUCOSE; Start 06/24/17 at 15:00 Dextrose (D50w Syringe) 50 ml Q15M PRN IV DECREASED GLUCOSE; Start 06/24/17 at 15:00 Glucagon (Glucagen) 1 mg Q15M PRN IM DECREASED GLUCOSE; Start 06/24/17 at 15:00 Glucose (Glutose) 15 gm Q15M PRN BUCCAL DECREASED GLUCOSE; Start 06/24/17 at 15 :00 Albuterol 2.5 mg 2.5 mg Q4 PRN HHN SHORTNESS OF BREATH; Start 06/24/17 at 15:00 Cefepime HCl (Maxipime 1gm/50 ml (Pmx)) 50 ml @ 100 mls/hr Q12 IVPB Last administered on 07/01/17 10:20; Admin Dose 100 MLS/HR; Start 06/24/17 at 21:00 Famotidine (Pepcid) 20 mg BID PO Last administered on 07/01/17 09:44; Admin Dose 20 MG; Start 06/25/17 at 21:00 Furosemide (Lasix) 20 mg DAILY IV Last administered on 07/01/17 09:44; Admin Dose 20 MG; Start 06/27/17 at 09:00 Methylprednisolone Sodium Succinate 60 mg 60 mg Q6 IV Last administered on 07/01 12:40; Admin Dose 60 MG; Start 06/28/17 at 18:00 Vancomycin HCl/ Sodium Chloride (Vancocin/NS) 250 ml @ 83.333 mls/ hr Q8H IVPB Last administered on 07/01/17 06:20; Admin Dose 83.333 MLS/HR; Start at 06:00 Pantoprazole (Protonix Tab) 40 mg BID@06,18 PO Last administered on 07/01/17 06:16; Admin Dose 40 MG; Start 06/30/17 at 18:00 Miscellaneous Information (*Rx Drug Level Order Reminder*) 1 ONCE ONCE XX ; Start 07/01/17 at 21:00; Stop 07/01/17 at 21:01 Assessment/Plan Chief Complaint/Hosp Course Assessment 1. Status post acute hypoxemic and hypercapnic respiratory failure 2. Bibasilar pneumonia likely community-acquired pneumonia. Spiculated lesion on chest CT concerning for possible underlying malignancy, outpatient work up with PET and PFTS 3. Probable underlying obstructive sleep apnea 4. Possible COPD component 5. GI bleed. Plan 1. Continue current antibiotic coverage, 2. Decrease oxygen as tolerated 3. Bronchodilators encourage ambulation 4. Consider transfusion of packed red blood cells. GI recommendations. 5. Monitor H&H Disposition Consider transfer to [facility] [place] Problems: IGOR WEBER MD, [facility] Jul 01, 2017 14:39
--- NOTE | 2017-07-01 15:33 | PN ---
Date/Time of Note Date/Time of Note DATE: 07/01/17 TIME: 15:27 Assessment/Plan VTE Prophylaxis VTE Prophylaxis Intervention: SCD's Lines/Catheters IV [facility]from [facility] Peripheral IV Urinary Cath still in place: No Assessment/Plan Chief Complaint/Hosp Course 1. Acute respiratory failure secondary to multifocal pneumonia - Condition improving and currently NC - most likely component of COPD contributing to respiratory distress - Pulmonology on board and recommendations appreciated. will continue current management 2. Sepsis secondary to right lower lobe pneumonia - improving - Pulmonology on board and recommendations appreciated. - Blood cultures negative 3. Multifocal pneumonia - On antibiotics and nebs PRN - Tolerating NC - CTA showed extensive dense consolidation in both lower lobes, left greater than right, with additional patchy consolidation in the lingula and medial right middle and right upper lobes. 4. Acute Upper GI bleed - GI on board and recommendations appreciated. EGD revealed esophageal ulceration with gastritis and duodenitis. - Patient continued on PO PPI and monitor for acute bleed 5. Nonspecific mediastinal and bilateral hilar adenopathy. 6. Acute decompensated diastolic heart failure - Cardiology on board and consult appreciated. - Daily diuretics with good output - Continue BB, aspirin, and statin - Lisinopril d/c due to borderline pressure 7. hyponatremia- resolved - Will continue to monitor 8. transaminitis- stable - Will continue to monitor 9. Diabetes Mellitus - hold PO home medications - A1c 5.6 - mild ISS 10. h/o CAD s/p CABG 10 years ago 11. 17mm nodule with spiculation - Will need to further evaluation as outpatient. DISPO: once stable, abx duration to be finalized by ID and then dispo Problems: Subjective 24 Hr Interval Summary Free Text/Dictation no acute complaints, resting comfortably Exam/Review of Systems Vital Signs Vitals Vital Signs Date Time Temp Pulse Resp B/P Pulse Ox O2 Delivery O2 Flow Rate FiO2 07/01/17 12:00 59 07/01/17 11:21 97.7 18 108/53 91 07/01/17 07:49 1.0 06/30/17 05:00 Nasal Cannula 06/29/17 07:32 45 Intake and Output 06/30/17 06/30/17 07/01/17 15:00 23:00 07:00 Intake Total 800 ml 670 ml Output Total 1300 ml 750 ml Balance -500 ml -80 ml Exam General: alert, awake, NAD, remains on high flow O2 HEENT: NC/AT, PERRL, EOMI CVS: regular rate and rhythm, no murmurs Lungs: Equal chest rise, diminished at bases b/l. no wheezing or crackles appreciated Abd: soft, NT, protuberant, no rebound or guarding Ext: no edema, cyanosis, ecchymosis, clubbing Skin: no rashes Results Result Diagram: 07/01/17 0731 07/01/17 0731 Results 24 hrs Laboratory Tests Test 06/30/17 16:52 06/30/17 21:08 07/01/17 07:31 07/01/17 08:46 Bedside Glucose 151 156 159 White Blood Count 22.3 H Red Blood Count 2.68 L Hemoglobin 7.9 L Hematocrit 25.1 L Mean Corpuscular Volume 93.7 Mean Corpuscular Hemoglobin 29.5 Mean Corpuscular Hemoglobin Concent 31.5 L Red Cell Distribution Width 16.0 H Platelet Count 423 H Mean Platelet Volume 10.5 H Neutrophils % 70.0 Lymphocytes % 11.3 L Monocytes % 4.8 Eosinophils % 0.0 Basophils % 0.7 Nucleated Red Blood Cells % 0.1 H Neutrophils # 15.6 H Lymphocytes # 2.5 Monocytes # 1.1 H Eosinophils # 0.0 Basophils # 0.2 H Nucleated Red Blood Cells # 0.0 Sodium Level 144 Potassium Level 4.2 Chloride Level 109 Carbon Dioxide Level 29 Anion Gap 10 Blood Urea Nitrogen 22 H Creatinine 0.76 Glucose Level 142 Calcium Level 8.1 L Magnesium Level 2.3 Total Bilirubin 0.2 Direct Bilirubin 0.00 Indirect Bilirubin 0.2 Aspartate Amino Transf (AST/SGOT) 66 H Alanine Aminotransferase (ALT/SGPT) 108 H Alkaline Phosphatase 118 Total Protein 6.4 Albumin 3.0 L Globulin 3.40 H Albumin/Globulin Ratio 0.88 Test 07/01/17 12:22 Bedside Glucose 179 Medications Medications Current Medications Ondansetron HCl (Zofran Inj) 4 mg Q6H PRN IV NAUSEA AND/OR VOMITING; Start at 13:30 Aspirin (Aspirin) 81 mg DAILY PO Last administered on 07/01/17t 09:44; Admin Dose 81 MG; Start 06/25/17 at 09:00 Acetaminophen 650 mg 650 mg Q6H PRN PO PAIN LEVEL 1-3 OR FEVER Last administered on 06/25/17 20:58; Admin Dose 650 MG; Start 06/24/17 at 13:30 Azithromycin (Zithromax 500mg/ NS (Pmx)) 250 ml @ 250 mls/hr Q24H IVPB Last administered on 07/01/17 11:34; Admin Dose 250 MLS/HR; Start 06/25/17 at 10:00 Carvedilol (Coreg) 3.125 mg BID PO Last administered on 07/01/17 09:44; Admin Dose 3.125 MG; Start 06/24/17 at 21:00 Gabapentin (Neurontin) 300 mg QHS PO Last administered on 06/30/17 21:11; Admin Dose 300 MG; Start 06/24/17 at 21:00 Tamsulosin HCl (Flomax) 0.4 mg HS PO Last administered on 06/30/17 21:11; Admin Dose 0.4 MG; Start 06/24/17 at 21:00 Atorvastatin Calcium (Lipitor) 10 mg DAILY@21 PO Last administered on 21:11; Admin Dose 10 MG; Start 06/24/17 at 21:00 Diagnostic Test (Pha) (Accu-Chek) 1 ea 02 XX Last administered on 06/30/17 02: 23; Admin Dose 1 EA; Start 06/25/17 at 02:00 Miscellaneous Information 1 ea NOTE XX ; Start 06/24/17 at 15:00 Glucose (Glutose) 15 gm Q15M PRN PO DECREASED GLUCOSE; Start 06/24/17 at 15:00 Glucose (Glutose) 22.5 gm Q15M PRN PO DECREASED GLUCOSE; Start 06/24/17 at 15: 00 Dextrose (D50w Syringe) 25 ml Q15M PRN IV DECREASED GLUCOSE; Start 06/24/17 at 15:00 Dextrose (D50w Syringe) 50 ml Q15M PRN IV DECREASED GLUCOSE; Start 06/24/17 at 15:00 Glucagon (Glucagen) 1 mg Q15M PRN IM DECREASED GLUCOSE; Start 06/24/17 at 15:00 Glucose (Glutose) 15 gm Q15M PRN BUCCAL DECREASED GLUCOSE; Start 06/24/17 at 15 :00 Albuterol 2.5 mg 2.5 mg Q4 PRN HHN SHORTNESS OF BREATH; Start 06/24/17 at 15:00 Cefepime HCl (Maxipime 1gm/50 ml (Pmx)) 50 ml @ 100 mls/hr Q12 IVPB Last administered on 07/01/17 10:20; Admin Dose 100 MLS/HR; Start 06/24/17 at 21:00 Famotidine (Pepcid) 20 mg BID PO Last administered on 07/01/17 09:44; Admin Dose 20 MG; Start 06/25/17 at 21:00 Furosemide (Lasix) 20 mg DAILY IV Last administered on 07/01/17 09:44; Admin Dose 20 MG; Start 06/27/17 at 09:00 Methylprednisolone Sodium Succinate 60 mg 60 mg Q6 IV Last administered on 07/01 12:40; Admin Dose 60 MG; Start 06/28/17 at 18:00 Vancomycin HCl/ Sodium Chloride (Vancocin/NS) 250 ml @ 83.333 mls/ hr Q8H IVPB Last administered on 07/01/17 15:16; Admin Dose 83.333 MLS/HR; Start at 06:00 Pantoprazole (Protonix Tab) 40 mg BID@06,18 PO Last administered on 07/01/17 06:16; Admin Dose 40 MG; Start 06/30/17 at 18:00 Miscellaneous Information (*Rx Drug Level Order Reminder*) 1 ONCE ONCE XX ; Start 07/01/17 at 21:00; Stop 07/01/17 at 21:01 SHANIA SAHA Jul 01, 2017 15:33
[2017-07-01] MEDS: GABAPENTIN 300 MG CAP PO SCH (21:35)
[2017-07-01] MEDS: ATORVASTATIN 10 MG TAB PO SCH (21:35)
[2017-07-01] MEDS: TAMSULOSIN (SR) 0.4 MG CAP PO SCH (21:37)
[2017-07-02] VITALS (12 sets, daily range): BP systolic 104–140; BP diastolic 51–68; PULSE 30–66; RESP 18–19
[2017-07-02] MEDS: ACCU-CHEK XX SCH (02:00)
--- NOTE | 2017-07-02 03:18 | CONS ---
DATE OF ADMISSION: 06/24/2017 DATE OF CONSULTATION: 07/01/2017 REASON FOR CONSULTATION: Antibiotic management. HISTORY OF PRESENT ILLNESS: Zeeshan Salas is a 61-year-old [place] Citizen Of [place] male who was admitted with sepsis secondary to right lower lobe pneumonia and is being seen for antibiotic management. His past problems include: 1. Coronary artery disease. 2. Status post coronary artery bypass graft 10 years ago. 3. Hypertension. 4. Prediabetes. 5. Ventral hernia. 6. Marked obesity. The patient complained of shortness of breath and myalgias for 3 days prior to his admission, which was on 06/24. He has been short of breath with nonproductive cough that has been progressively worsening. He admits to fever, chills, sweats, nausea, vomiting, and diarrhea. On admission, he was placed on BiPAP and was started on azithromycin and ceftriaxone for community-acquired pneumonia. He also has had acute decompensated systolic heart failure, hyponatremia, transaminitis, diabetes, as well as all of his other problems. HOSPITAL COURSE: The patient was seen by multiple physicians. His urine grew out coag-negative staph, which was possibly a contaminant. Blood cultures were negative. Chest x-ray on the showed bilateral pulmonary airspace disease unchanged, right worse than left, heart is enlarged, sternal wires, mediastinal clips. A chest thoracic CTA showed no pulmonary emboli to the level of the subsegmental pulmonary arteries, extensive dense consolidation in both lower lobes, left greater than right, with additional patchy consolidation in the lingula and medial right middle and upper lobes. These findings are consistent with multifocal pneumonia and a suspicious 17 mm nodule with subtle spiculations at the margins suspicious for neoplasm, nonspecific mediastinal and bilateral hilar adenopathy, multivessel coronary artery calcifications and atherosclerotic changes of the aorta, borderline splenomegaly, moderate fat-containing epigastric hernia. The patient is currently on vancomycin, azithromycin and cefepime. The patient had an EGD without brushings, as well as washing. He had extensive esophageal ulceration. No evidence of active or recent bleeding, hiatal hernia, gastritis, duodenitis, etc. Patient was noted to be stable yesterday. White count was 24.4, H and H of 7.7, 24.3, platelet count 359,000. BUN and creatinine 21/0.64. PAST MEDICAL HISTORY: Operations as outlined. FAMILY HISTORY: Noncontributory. SOCIAL HISTORY: He does not smoke. He was a former smoker. He does not drink or abuse drugs. ALLERGIES: NONE TO PENICILLIN, SULFA, OR FOODS. MEDICATION: Per chart. REVIEW OF SYSTEMS: As per HPI. PHYSICAL EXAMINATION: GENERAL: Patient is a well-developed, obese white male, who is alert, responsive, in no acute distress. VITAL SIGNS: Stable. He is afebrile. SKIN: Without generalized rash. HEENT: Within normal limits. NECK: Supple. Lymph nodes nonpalpable. CHEST: Decreased breath sounds at the bases, with occasional rale. HEART: Without murmur or gallop. ABDOMEN: Soft, nontender, without organosplenomegaly or masses. EXTREMITIES: Without cyanosis, clubbing, or edema. RECTAL AND GENITAL: Exams deferred. NEUROLOGICAL: No focal neurological abnormalities. IMPRESSION AND PLAN: Patient remains with an elevated white count of 22.3. He is on good antibiotic therapy. He has multifocal pneumonia. He seems to be improving. So far blood cultures are negative except for his sepsis secondary to right lower lobe pneumonia. We will continue him on his current therapy and observe his white count. If he becomes febrile, we will get some blood cultures, which he has not had and try to get some culture of the sputum. I will dictate my findings to the hospitalist and to the aforementioned consultants. Dictated By: Thanh Juan MD JD/[email or web address]/[email or web address] /Document#: [id number]
[2017-07-02] MEDS: VANCOMYCIN 1.5 GM in SOD CHLORIDE 0.9% 250 ML IVPB SCH (06:00)
[2017-07-02] MEDS: PANTOPRAZOLE (EC) 40 MG TAB PO SCH ×2 (06:31→17:20)
[2017-07-02] MEDS: INSULIN ASPART [NOVOLOG] 3 ML PEN SC SCH ×4 (07:55→21:00)
[2017-07-02] MEDS ORDERED: VANCOMYCIN 1.75 GM in NS 500 ML IVPB SCH (08:00)
[2017-07-02] MEDS: FAMOTIDINE 20 MG TAB PO SCH ×2 (08:58→21:09)
[2017-07-02] MEDS: CEFEPIME 1GM/50 ML (PMX) 50 ML IVPB SCH (08:58)
[2017-07-02] MEDS: ASPIRIN 81 MG TAB PO SCH (08:59)
[2017-07-02] MEDS ORDERED: predniSONE 20 MG TAB PO SCH (09:00)
[2017-07-02] MEDS ORDERED: FUROSEMIDE 40 MG TAB PO SCH (09:00)
[2017-07-02] MEDS: AZITHROMYCIN 500MG/NS (PMX) 250 ML IVPB SCH (10:56)
--- NOTE | 2017-07-02 11:00 | CONS ---
Date/Time of Note Date/Time of Note DATE: 07/02/17 TIME: 10:59 Consult Date/Type/Reason Admit Date/Time Jun 24, 2017 at 11:58 Initial Consult Date 06/24/17 Type of Consultation: Pulmonary Ordering Provider: NICOLA EUBANKS MD Subjective Comfortable. denies sob. Objective Vital Signs Date Time Temp Pulse Resp B/P Pulse Ox O2 Delivery O2 Flow Rate FiO2 07/02/17 08:00 45 07/02/17 07:07 98.1 18 132/66 95 07/01/17 20:00 Nasal Cannula 2.0 06/29/17 07:32 45 Intake and Output 07/01/17 07/01/17 07/02/17 15:00 23:00 07:00 Intake Total 500 ml 550 ml Output Total 850 ml Balance -350 ml 550 ml Exam GENERAL: Well-nourished well-developed gentleman comfortable at rest VITAL SIGNS: per chart NECK: Supple. No JVD or lymphadenopathy. CARDIAC EXAM: S1, S2. No added sounds or murmurs. CHEST: Diminished air entry both lung hope ABDOMEN: Soft, nontender. No guarding or rebound. EXTREMITIES: No cyanosis, clubbing or edema. NEUROLOGIC: Generalized weakness. No focal deficits. Results/Medications Result Diagram: 07/01/1773007/01/1731 Results 24 hrs Laboratory Tests Test 07/01/17 12:22 07/01/17 18:09 07/01/17 20:58 07/01/17 21:21 Bedside Glucose 179 138 128 Vancomycin Level Trough 23.7 *H Test 07/01/17 21:27 07/02/17 08:08 Bedside Glucose 130 79 Medications Current Medications Ondansetron HCl (Zofran Inj) 4 mg Q6H PRN IV NAUSEA AND/OR VOMITING; Start at 13:30 Aspirin (Aspirin) 81 mg DAILY PO Last administered on 07/02/17 08:59; Admin Dose 81 MG; Start 06/25/17 at 09:00 Acetaminophen 650 mg 650 mg Q6H PRN PO PAIN LEVEL 1-3 OR FEVER Last administered on 06/25/17 20:58; Admin Dose 650 MG; Start 06/24/17 at 13:30 Azithromycin (Zithromax 500mg/ NS (Pmx)) 250 ml @ 250 mls/hr Q24H IVPB Last administered on 07/02/17 10:56; Admin Dose 250 MLS/HR; Start 06/25/17 at 10:00 Carvedilol (Coreg) 3.125 mg BID PO Last administered on 07/02/17 08:59; Admin Dose 3.125 MG; Start 06/24/17 at 21:00 Gabapentin (Neurontin) 300 mg QHS PO Last administered on 07/01/17 21:35; Admin Dose 300 MG; Start 06/24/17 at 21:00 Tamsulosin HCl (Flomax) 0.4 mg HS PO Last administered on 07/01/17 21:37; Admin Dose 0.4 MG; Start 06/24/17 at 21:00 Atorvastatin Calcium (Lipitor) 10 mg DAILY@21 PO Last administered on 21:35; Admin Dose 10 MG; Start 06/24/17 at 21:00 Diagnostic Test (Pha) (Accu-Chek) 1 ea 02 XX Last administered on 06/30/17 02: 23; Admin Dose 1 EA; Start 06/25/17 at 02:00 Miscellaneous Information 1 ea NOTE XX ; Start 06/24/17 at 15:00 Glucose (Glutose) 15 gm Q15M PRN PO DECREASED GLUCOSE; Start 06/24/17 at 15:00 Glucose (Glutose) 22.5 gm Q15M PRN PO DECREASED GLUCOSE; Start 06/24/17 at 15: 00 Dextrose (D50w Syringe) 25 ml Q15M PRN IV DECREASED GLUCOSE; Start 06/24/17 at 15:00 Dextrose (D50w Syringe) 50 ml Q15M PRN IV DECREASED GLUCOSE; Start 06/24/17 at 15:00 Glucagon (Glucagen) 1 mg Q15M PRN IM DECREASED GLUCOSE; Start 06/24/17 at 15:00 Glucose (Glutose) 15 gm Q15M PRN BUCCAL DECREASED GLUCOSE; Start 06/24/17 at 15 :00 Albuterol 2.5 mg 2.5 mg Q4 PRN HHN SHORTNESS OF BREATH; Start 06/24/17 at 15:00 Cefepime HCl (Maxipime 1gm/50 ml (Pmx)) 50 ml @ 100 mls/hr Q12 IVPB Last administered on 07/02/17 08:58; Admin Dose 100 MLS/HR; Start 06/24/17 at 21:00 Famotidine (Pepcid) 20 mg BID PO Last administered on 07/02/17 08:58; Admin Dose 20 MG; Start 06/25/17 at 21:00 Pantoprazole (Protonix Tab) 40 mg BID@06,18 PO Last administered on 07/02/17 06:31; Admin Dose 40 MG; Start 06/30/17 at 18:00 Furosemide (Lasix) 40 mg DAILY PO Last administered on 07/02/17 08:59; Admin Dose 40 MG; Start 07/02/17 at 09:00 Prednisone 40 mg 40 mg DAILY PO Last administered on 07/02/17 08:59; Admin Dose 40 MG; Start 07/02/17 at 09:00 Vancomycin HCl/ Sodium Chloride (Vancocin/NS) 500 ml @ 125 mls/hr Q12H IVPB Last administered on 07/02/17 08:22; Admin Dose 125 MLS/HR; Start 07/02/17 at 08:00 Assessment/Plan Chief Complaint/Hosp Course Assessment 1. Status post acute hypoxemic and hypercapnic respiratory failure 2. Bibasilar pneumonia likely community-acquired pneumonia. Spiculated lesion on chest CT concerning for possible underlying malignancy, outpatient work up with PET and PFTS 3. Probable underlying obstructive sleep apnea 4. Possible COPD component 5. GI bleed. Plan 1. Continue current antibiotic coverage, 2. Encourage oob. 3. Bronchodilators encourage ambulation 4. repeat labs. 5. Monitor H&H Disposition Consider transfer to [facility] Problems: IGOR WEBER MD, [facility] Jul 02, 2017 11:00
[2017-07-02] MEDS: predniSONE 20 MG TAB PO SCH (12:00)
--- NOTE | 2017-07-02 16:18 | CONS ---
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 Given bradycardia, DC Coreg. Antibiotics as per infectious disease. Consultation Date/Type/Reason Admit Date/Time Jun 24, 2017 at 11:58 Initial Consult Date 06/24/17 Type of Consultation: cv Referring Provider: NICOLA EUBANKS MD 24 HR Interval Summary Free Text/Dictation Shortness of breath continues to improve, denies chest pain or palpitations Exam/Review of Systems Vital Signs Vitals Vital Signs Date Time Temp Pulse Resp B/P Pulse Ox O2 Delivery O2 Flow Rate FiO2 07/02/17 15:13 97.8 58 18 113/54 92 07/01/17 20:00 Nasal Cannula 2.0 06/29/17 07:32 45 Intake and Output 07/01/17 07/01/17 07/02/17 15:00 23:00 07:00 Intake Total 500 ml 550 ml Output Total 850 ml Balance -350 ml 550 ml Exam No apparent distress, seen ambulating in the room Constitutional: alert, oriented Head: normocephalic Respiratory: other (Coarse breath sounds bilaterally, no wheezing) Cardiovascular: other (S1-S2 heard), regular rate and rhythm Gastrointestinal: bowel sounds, non-tender, soft Extremities: edema Results Result Diagram: 07/01/17 0731 07/01/17 0731 Results 24 hrs Laboratory Tests Test 07/01/17 18:09 07/01/17 20:58 07/01/17 21:21 07/01/17 21:27 Bedside Glucose 138 128 130 Vancomycin Level Trough 23.7 *H Test 07/02/17 08:08 07/02/17 12:18 Bedside Glucose 79 110 Medications Medications Current Medications Ondansetron HCl (Zofran Inj) 4 mg Q6H PRN IV NAUSEA AND/OR VOMITING; Start at 13:30 Aspirin (Aspirin) 81 mg DAILY PO Last administered on 07/02/17t 08:59; Admin Dose 81 MG; Start 06/25/17 at 09:00 Acetaminophen 650 mg 650 mg Q6H PRN PO PAIN LEVEL 1-3 OR FEVER Last administered on 06/25/17 20:58; Admin Dose 650 MG; Start 06/24/17 at 13:30 Azithromycin (Zithromax 500mg/ NS (Pmx)) 250 ml @ 250 mls/hr Q24H IVPB Last administered on 07/02/17 10:56; Admin Dose 250 MLS/HR; Start 06/25/17 at 10:00 Carvedilol (Coreg) 3.125 mg BID PO Last administered on 07/02/17 08:59; Admin Dose 3.125 MG; Start 06/24/17 at 21:00 Gabapentin (Neurontin) 300 mg QHS PO Last administered on 07/01/17 21:35; Admin Dose 300 MG; Start 06/24/17 at 21:00 Tamsulosin HCl (Flomax) 0.4 mg HS PO Last administered on 07/01/17 21:37; Admin Dose 0.4 MG; Start 06/24/17 at 21:00 Atorvastatin Calcium (Lipitor) 10 mg DAILY@21 PO Last administered on 21:35; Admin Dose 10 MG; Start 06/24/17 at 21:00 Diagnostic Test (Pha) (Accu-Chek) 1 ea 02 XX Last administered on 06/30/17 02: 23; Admin Dose 1 EA; Start 06/25/17 at 02:00 Miscellaneous Information 1 ea NOTE XX ; Start 06/24/17 at 15:00 Glucose (Glutose) 15 gm Q15M PRN PO DECREASED GLUCOSE; Start 06/24/17 at 15:00 Glucose (Glutose) 22.5 gm Q15M PRN PO DECREASED GLUCOSE; Start 06/24/17 at 15: 00 Dextrose (D50w Syringe) 25 ml Q15M PRN IV DECREASED GLUCOSE; Start 06/24/17 at 15:00 Dextrose (D50w Syringe) 50 ml Q15M PRN IV DECREASED GLUCOSE; Start 06/24/17 at 15:00 Glucagon (Glucagen) 1 mg Q15M PRN IM DECREASED GLUCOSE; Start 06/24/17 at 15:00 Glucose (Glutose) 15 gm Q15M PRN BUCCAL DECREASED GLUCOSE; Start 06/24/17 at 15 :00 Albuterol 2.5 mg 2.5 mg Q4 PRN HHN SHORTNESS OF BREATH; Start 06/24/17 at 15:00 Cefepime HCl (Maxipime 1gm/50 ml (Pmx)) 50 ml @ 100 mls/hr Q12 IVPB Last administered on 07/02/17 08:58; Admin Dose 100 MLS/HR; Start 06/24/17 at 21:00 Famotidine (Pepcid) 20 mg BID PO Last administered on 07/02/17 08:58; Admin Dose 20 MG; Start 06/25/17 at 21:00 Pantoprazole (Protonix Tab) 40 mg BID@06,18 PO Last administered on 07/02/17 06:31; Admin Dose 40 MG; Start 06/30/17 at 18:00 Furosemide (Lasix) 40 mg DAILY PO Last administered on 07/02/17 08:59; Admin Dose 40 MG; Start 07/02/17 at 09:00 Prednisone 30 mg 30 mg DAILY PO ; Start 07/02/17 at 12:00 Vancomycin HCl/ Sodium Chloride (Vancocin/NS) 250 ml @ 83.333 mls/ hr Q12H IVPB ; Start 07/02/17 at 21:00 Dennis Lopez DO Jul 02, 2017 16:18
--- NOTE | 2017-07-02 16:29 | PN ---
Date/Time of Note Date/Time of Note DATE: 07/02/17 TIME: 16:27 Assessment/Plan VTE Prophylaxis VTE Prophylaxis Intervention: ambulation, SCD's Lines/Catheters IV Catheter Type (from Nrs): Saline Lock Assessment/Plan Chief Complaint/Hosp Course 1. Acute respiratory failure secondary to multifocal pneumonia - Condition improving and currently NC/RA - most likely component of COPD contributing to respiratory distress - Pulmonology on board and recommendations appreciated. will continue current management -titrate down steroids 2. Sepsis secondary to right lower lobe pneumonia - improving - Pulmonology on board and recommendations appreciated. - Blood cultures negative -PO levaquin now 3. Multifocal pneumonia - On antibiotics and nebs PRN - Tolerating NC - CTA showed extensive dense consolidation in both lower lobes, left greater than right, with additional patchy consolidation in the lingula and medial right middle and right upper lobes. 4. Acute Upper GI bleed - GI on board and recommendations appreciated. EGD revealed esophageal ulceration with gastritis and duodenitis. - Patient continued on PO PPI and monitor for acute bleed 5. Nonspecific mediastinal and bilateral hilar adenopathy. 6. Acute decompensated diastolic heart failure - Cardiology on board and consult appreciated. - Daily diuretics with good output - Continue aspirin, and statin - Lisinopril d/c due to borderline pressure -coreg held per cards due to bradycardia 7. hyponatremia- resolved - Will continue to monitor 8. transaminitis- stable - Will continue to monitor 9. Diabetes Mellitus - hold PO home medications - A1c 5.6 - mild ISS 10. h/o CAD s/p CABG 10 years ago 11. 17mm nodule with spiculation - Will need to further evaluation as outpatient. DISPO: likely monitor overnight and DC if stable with home health after PT evaluation Problems: Subjective 24 Hr Interval Summary Free Text/Dictation no acute changes, feeling ok, has not been walking around Exam/Review of Systems Vital Signs Vitals Vital Signs Date Time Temp Pulse Resp B/P Pulse Ox O2 Delivery O2 Flow Rate FiO2 07/02/17 15:13 97.8 58 18 113/54 92 07/01/17 20:00 Nasal Cannula 2.0 06/29/17 07:32 45 Intake and Output 07/01/17 07/01/17 07/02/17 15:00 23:00 07:00 Intake Total 500 ml 550 ml Output Total 850 ml Balance -350 ml 550 ml Exam General: alert, awake, NAD, on room air HEENT: NC/AT, PERRL, EOMI CVS: regular rate and rhythm, no murmurs Lungs: Equal chest rise, diminished at bases b/l. no wheezing or crackles appreciated Abd: soft, NT, protuberant, no rebound or guarding Ext: no edema, cyanosis, ecchymosis, clubbing Skin: no rashes Results Result Diagram: 07/01/17 0731 07/01/17 0731 Results 24 hrs Laboratory Tests Test 07/01/17 18:09 07/01/17 20:58 07/01/17 21:21 07/01/17 21:27 Bedside Glucose 138 128 130 Vancomycin Level Trough 23.7 *H Test 07/02/17 08:08 07/02/17 12:18 Bedside Glucose 79 110 Medications Medications Current Medications Ondansetron HCl (Zofran Inj) 4 mg Q6H PRN IV NAUSEA AND/OR VOMITING; Start at 13:30 Aspirin (Aspirin) 81 mg DAILY PO Last administered on 07/02/17 08:59; Admin Dose 81 MG; Start 06/25/17 at 09:00 Acetaminophen (Tylenol Tab) 650 mg Q6H PRN PO PAIN LEVEL 1-3 OR FEVER Last administered on 06/25/17 20:58; Admin Dose 650 MG; Start 06/24/17 at 13:30 Gabapentin (Neurontin) 300 mg QHS PO Last administered on 07/01/17 21:35; Admin Dose 300 MG; Start 06/24/17 at 21:00 Tamsulosin HCl (Flomax) 0.4 mg HS PO Last administered on 07/01/17 21:37; Admin Dose 0.4 MG; Start 06/24/17 at 21:00 Atorvastatin Calcium (Lipitor) 10 mg DAILY@21 PO Last administered on 21:35; Admin Dose 10 MG; Start 06/24/17 at 21:00 Diagnostic Test (Pha) (Accu-Chek) 1 ea 02 XX Last administered on 06/30/17 02: 23; Admin Dose 1 EA; Start 06/25/17 at 02:00 Miscellaneous Information 1 ea NOTE XX ; Start 06/24/17 at 15:00 Glucose (Glutose) 15 gm Q15M PRN PO DECREASED GLUCOSE; Start 06/24/17 at 15:00 Glucose (Glutose) 22.5 gm Q15M PRN PO DECREASED GLUCOSE; Start 06/24/17 at 15: 00 Dextrose (D50w Syringe) 25 ml Q15M PRN IV DECREASED GLUCOSE; Start 06/24/17 at 15:00 Dextrose (D50w Syringe) 50 ml Q15M PRN IV DECREASED GLUCOSE; Start 06/24/17 at 15:00 Glucagon (Glucagen) 1 mg Q15M PRN IM DECREASED GLUCOSE; Start 06/24/17 at 15:00 Glucose (Glutose) 15 gm Q15M PRN BUCCAL DECREASED GLUCOSE; Start 06/24/17 at 15 :00 Albuterol (Proventil 0.083% (Neb)) 2.5 mg Q4 PRN HHN SHORTNESS OF BREATH; Start 06/24/17 at 15:00 Famotidine (Pepcid) 20 mg BID PO Last administered on 07/02/17 08:58; Admin Dose 20 MG; Start 06/25/17 at 21:00 Pantoprazole (Protonix Tab) 40 mg BID@06,18 PO Last administered on 07/02/17 06:31; Admin Dose 40 MG; Start 06/30/17 at 18:00 Prednisone (Prednisone) 30 mg DAILY PO ; Start 07/02/17 at 12:00 Furosemide (Lasix) 20 mg DAILY PO ; Start 07/03/17 at 09:00 Levofloxacin (Levaquin) 750 mg DAILY@06 PO ; Start 07/02/17 at 16:30; Status SHANIA GRIMM Jul 02, 2017 16:29
[2017-07-02] MEDS: LEVOFLOXACIN 750 MG TABLET PO SCH (18:32)
[2017-07-02] MEDS ORDERED: VANCOMYCIN 1.5 GM in SOD CHLORIDE 0.9% 250 ML IVPB SCH (21:00)
[2017-07-02] MEDS: ATORVASTATIN 10 MG TAB PO SCH (21:08)
[2017-07-02] MEDS: GABAPENTIN 300 MG CAP PO SCH (21:08)
[2017-07-02] MEDS: TAMSULOSIN (SR) 0.4 MG CAP PO SCH (21:08)
--- NOTE | 2017-07-02 22:05 | CONS ---
Date/Time of Note Date/Time of Note DATE: 07/02/17 TIME: 22:01 Assessment/Plan Assessment/Plan Chief Complaint/Hosp Course 1. S/p sepsis with acute respiratory failure 2. Multifocal PNA 3. CHF exacerbation 4. Persistent leukocytosis==>steroids induced Plan: Overall improving, downgraded to PO Levaquin, continue present care, steroids taper, pulmonary/card rec-s DW pt/family at bedside Problems: Consultation Date/Type/Reason Admit Date/Time Jun 24, 2017 at 11:58 Initial Consult Date 06/24/17 Type of Consultation: id Referring Provider: NICOLA EUBANKS MD Exam/Review of Systems Vital Signs Vitals Vital Signs Date Time Temp Pulse Resp B/P Pulse Ox O2 Delivery O2 Flow Rate FiO2 07/02/17 20:27 97.7 68 19 138/65 94 07/02/17 08:00 Nasal Cannula 2.0 06/29/17 07:32 45 Intake and Output 07/01/17 07/01/17 07/02/17 15:00 23:00 07:00 Intake Total 500 ml 550 ml Output Total 850 ml Balance -350 ml 550 ml Results Result Diagram: 07/01/1731 07/01/1731 Results 24 hrs Laboratory Tests Test 07/02/17 08:08 07/02/17 12:18 07/02/17 17:18 07/02/17 21:07 Bedside Glucose 79 110 144 135 Medications Medications Current Medications Ondansetron HCl (Zofran Inj) 4 mg Q6H PRN IV NAUSEA AND/OR VOMITING; Start at 13:30 Aspirin (Aspirin) 81 mg DAILY PO Last administered on 07/02/17 08:59; Admin Dose 81 MG; Start 06/25/17 at 09:00 Acetaminophen (Tylenol Tab) 650 mg Q6H PRN PO PAIN LEVEL 1-3 OR FEVER Last administered on 06/25/17 20:58; Admin Dose 650 MG; Start 06/24/17 at 13:30 Gabapentin (Neurontin) 300 mg QHS PO Last administered on 07/02/17 21:08; Admin Dose 300 MG; Start 06/24/17 at 21:00 Tamsulosin HCl (Flomax) 0.4 mg HS PO Last administered on 07/02/17 21:08; Admin Dose 0.4 MG; Start 06/24/17 at 21:00 Atorvastatin Calcium (Lipitor) 10 mg DAILY@21 PO Last administered on 21:08; Admin Dose 10 MG; Start 06/24/17 at 21:00 Diagnostic Test (Pha) (Accu-Chek) 1 ea 02 XX Last administered on 06/30/17 02: 23; Admin Dose 1 EA; Start 06/25/17 at 02:00 Miscellaneous Information 1 ea NOTE XX ; Start 06/24/17 at 15:00 Glucose (Glutose) 15 gm Q15M PRN PO DECREASED GLUCOSE; Start 06/24/17 at 15:00 Glucose (Glutose) 22.5 gm Q15M PRN PO DECREASED GLUCOSE; Start 06/24/17 at 15: 00 Dextrose (D50w Syringe) 25 ml Q15M PRN IV DECREASED GLUCOSE; Start 06/24/17 at 15:00 Dextrose (D50w Syringe) 50 ml Q15M PRN IV DECREASED GLUCOSE; Start 06/24/17 at 15:00 Glucagon (Glucagen) 1 mg Q15M PRN IM DECREASED GLUCOSE; Start 06/24/17 at 15:00 Glucose (Glutose) 15 gm Q15M PRN BUCCAL DECREASED GLUCOSE; Start 06/24/17 at 15 :00 Albuterol (Proventil 0.083% (Neb)) 2.5 mg Q4 PRN HHN SHORTNESS OF BREATH; Start 06/24/17 at 15:00 Famotidine (Pepcid) 20 mg BID PO Last administered on 07/02/17 21:09; Admin Dose 20 MG; Start 06/25/17 at 21:00 Pantoprazole (Protonix Tab) 40 mg BID@06,18 PO Last administered on 07/02/17 17:20; Admin Dose 40 MG; Start 06/30/17 at 18:00 Prednisone (Prednisone) 30 mg DAILY PO ; Start 07/02/17 at 12:00 Furosemide (Lasix) 20 mg DAILY PO ; Start 07/03/17 at 09:00 Levofloxacin (Levaquin) 750 mg DAILY@06 PO Last administered on 07/02/17 18:32 ; Admin Dose 750 MG; Start 07/02/17 at 17:30 RAHUL GRAVES NP Jul 02, 2017 22:05
[2017-07-03] VITALS (9 sets, daily range): BP systolic 107–118; BP diastolic 50–65; PULSE 40–68; RESP 18–19
[2017-07-03] MEDS: ACCU-CHEK XX SCH (02:00)
[2017-07-03] MEDS: LEVOFLOXACIN 750 MG TABLET PO SCH (05:39)
[2017-07-03] MEDS: PANTOPRAZOLE (EC) 40 MG TAB PO SCH (05:40)
[2017-07-03] MEDS: INSULIN ASPART [NOVOLOG] 3 ML PEN SC SCH ×2 (07:55→12:16)
[2017-07-03] MEDS: predniSONE 20 MG TAB PO SCH (08:20)
[2017-07-03] MEDS: ASPIRIN 81 MG TAB PO SCH (08:21)
[2017-07-03] MEDS: FAMOTIDINE 20 MG TAB PO SCH (08:21)
[2017-07-03 08:32] LABS: ABNORMAL IP MESSAGE 1; HEMATOCRIT 27.7 % (42.0-52.0); HEMOGLOBIN 8.4 g/dl (14.0-18.0); MEAN CORPUSCULAR HGB CONC 30.3 g/dl (32.0-37.0); MEAN CORPUSCULAR VOLUME 95.5 fl (82.0-101.0); MEAN PLATELET VOLUME 10.2 fl (7.4-10.4); NUCLEATED RED BLOOD CELLS% 0.5 /100WBC (0.0-0.0); PLATELET COUNT 427 10^3/UL (140-415); POSITIVE DIFF @See below; RED CELL DISTRIBUTION WIDTH 16.4 % (11.5-14.5); WHITE BLOOD COUNT 13.3 10^3/ul (4.8-10.8)
[2017-07-03] MEDS ORDERED: FUROSEMIDE 20 MG TAB PO SCH (09:00)
[2017-07-03 09:04] LABS: CREATININE 0.87 mg/dl (0.61-1.24); PHOSPHORUS 4.4 mg/dl (2.5-4.9); POTASSIUM 3.5 mmol/L (3.5-5.1)
[2017-07-03 09:37] LABS: ANISOCYTOSIS 1+ (0-0); HYPOCHROMASIA 1+ (0-0); METAMYELOCYTES %M 1 % (0-0); MONOCYTES % (M) 6 % (0-11); MYELOCYTES % (M) 1 % (0-0); PLATELET ESTIMATE NORMAL; TEAR DROP CELLS 1+ (0-0)
--- NOTE | 2017-07-03 11:52 | CONS ---
Date/Time of Note Date/Time of Note DATE: 07/03/17 TIME: 11:51 Consult Date/Type/Reason Admit Date/Time Jun 24, 2017 at 11:58 Initial Consult Date 06/24/17 Type of Consultation: pulm Ordering Provider: NICOLA EUBANKS MD Subjective Patient comfortable this morning. No new events. Objective Vital Signs Date Time Temp Pulse Resp B/P Pulse Ox O2 Delivery O2 Flow Rate FiO2 07/03/17 11:17 98.7 66 18 118/65 98 07/03/17 08:30 Nasal Cannula 2.0 06/29/17 07:32 45 Intake and Output 07/02/17 07/02/17 07/03/17 15:00 23:00 07:00 Intake Total 1520 ml 900 ml Output Total 650 ml 500 ml Balance 870 ml 400 ml Exam GENERAL: Well-nourished well-developed gentleman comfortable at rest VITAL SIGNS: per chart NECK: Supple. No JVD or lymphadenopathy. CARDIAC EXAM: S1, S2. No added sounds or murmurs. CHEST: Diminished air entry both lung hope ABDOMEN: Soft, nontender. No guarding or rebound. EXTREMITIES: No cyanosis, clubbing or edema. NEUROLOGIC: Generalized weakness. No focal deficits. Results/Medications Result Diagram: 07/03/17 0710 07/03/17 0710 Results 24 hrs Laboratory Tests Test 07/02/17 12:18 07/02/17 17:18 07/02/17 21:07 07/03/17 07:10 Bedside Glucose 110 144 135 White Blood Count 13.3 #H Red Blood Count 2.90 L Hemoglobin 8.4 L Hematocrit 27.7 L Mean Corpuscular Volume 95.5 Mean Corpuscular Hemoglobin 29.0 Mean Corpuscular Hemoglobin Concent 30.3 L Red Cell Distribution Width 16.4 H Platelet Count 427 H Mean Platelet Volume 10.2 Neutrophils % Segmented Neutrophils % (Manual) 67 Band Neutrophils % (Manual) 4 Lymphocytes % Lymphocytes % (Manual) 21 Monocytes % Monocytes % (Manual) 6 Eosinophils % Basophils % Metamyelocytes % (manual) 1 H Myelocytes % (Manual) 1 H Nucleated Red Blood Cells % 0.5 H Neutrophils # Neutrophils # (Manual) 9.0 H Band Neutrophils # 0.5 Absolute Lymphocytes (Manual) 2.7 Lymphocytes # Monocytes # Absolute Monocytes (Manual) 0.7 Eosinophils # Basophils # Metamyelocytes # 0.1 H Myelocytes # 0.1 H Nucleated Red Blood Cells # Platelet Estimate NORMAL Dimorphic Red Blood Cells 1+ Hypochromasia 1+ Anisocytosis 1+ Tear Drop Cells 1+ Sodium Level 140 Potassium Level 3.5 Chloride Level 105 Carbon Dioxide Level 30 Anion Gap 9 Blood Urea Nitrogen 21 H Creatinine 0.87 Glucose Level 82 # Calcium Level 8.0 L Phosphorus Level 4.4 Magnesium Level 2.0 Test 07/03/17 08:18 Bedside Glucose 89 Medications Current Medications Ondansetron HCl (Zofran Inj) 4 mg Q6H PRN IV NAUSEA AND/OR VOMITING; Start at 13:30 Aspirin (Aspirin) 81 mg DAILY PO Last administered on 07/03/17 08:21; Admin Dose 81 MG; Start 06/25/17 at 09:00 Acetaminophen (Tylenol Tab) 650 mg Q6H PRN PO PAIN LEVEL 1-3 OR FEVER Last administered on 06/25/17 20:58; Admin Dose 650 MG; Start 06/24/17 at 13:30 Gabapentin (Neurontin) 300 mg QHS PO Last administered on 07/02/17 21:08; Admin Dose 300 MG; Start 06/24/17 at 21:00 Tamsulosin HCl (Flomax) 0.4 mg HS PO Last administered on 07/02/17 21:08; Admin Dose 0.4 MG; Start 06/24/17 at 21:00 Atorvastatin Calcium (Lipitor) 10 mg DAILY@21 PO Last administered on 21:08; Admin Dose 10 MG; Start 06/24/17 at 21:00 Diagnostic Test (Pha) (Accu-Chek) 1 ea 02 XX Last administered on 06/30/17 02: 23; Admin Dose 1 EA; Start 06/25/17 at 02:00 Miscellaneous Information 1 ea NOTE XX ; Start 06/24/17 at 15:00 Glucose (Glutose) 15 gm Q15M PRN PO DECREASED GLUCOSE; Start 06/24/17 at 15:00 Glucose (Glutose) 22.5 gm Q15M PRN PO DECREASED GLUCOSE; Start 06/24/17 at 15: 00 Dextrose (D50w Syringe) 25 ml Q15M PRN IV DECREASED GLUCOSE; Start 06/24/17 at 15:00 Dextrose (D50w Syringe) 50 ml Q15M PRN IV DECREASED GLUCOSE; Start 06/24/17 at 15:00 Glucagon (Glucagen) 1 mg Q15M PRN IM DECREASED GLUCOSE; Start 06/24/17 at 15:00 Glucose (Glutose) 15 gm Q15M PRN BUCCAL DECREASED GLUCOSE; Start 06/24/17 at 15 :00 Albuterol (Proventil 0.083% (Neb)) 2.5 mg Q4 PRN HHN SHORTNESS OF BREATH; Start 06/24/17 at 15:00 Famotidine (Pepcid) 20 mg BID PO Last administered on 07/03/17 08:21; Admin Dose 20 MG; Start 06/25/17 at 21:00 Pantoprazole (Protonix Tab) 40 mg BID@06,18 PO Last administered on 07/03/17 05:40; Admin Dose 40 MG; Start 06/30/17 at 18:00 Prednisone (Prednisone) 30 mg DAILY PO Last administered on 07/03/17 08:20; Admin Dose 30 MG; Start 07/02/17 at 12:00 Furosemide (Lasix) 20 mg DAILY PO Last administered on 07/03/17 08:20; Admin Dose 20 MG; Start 07/03/17 at 09:00 Levofloxacin (Levaquin) 750 mg DAILY@06 PO Last administered on 07/03/17 05:39 ; Admin Dose 750 MG; Start 07/02/17 at 17:30 Assessment/Plan Chief Complaint/Hosp Course Assessment 1. Status post acute hypoxemic and hypercapnic respiratory failure 2. Bibasilar pneumonia likely community-acquired pneumonia. Spiculated lesion on chest CT concerning for possible underlying malignancy, outpatient work up with PET and PFTS 3. Probable underlying obstructive sleep apnea 4. Possible COPD component 5. GI bleed. Plan 1. Continue current antibiotic coverage, 2. Encourage oob. 3. Bronchodilators encourage ambulation 4. repeat labs. 5. Monitor H&H Disposition discharge planning okay from primary standpoint. Problems: IGOR WEBER MD, [facility] Jul 03, 2017 11:51
[2017-07-03] MEDS ORDERED: POTASSIUM CHLORIDE (SR) 20 MEQ TAB PO STA (12:46)
--- NOTE | 2017-07-03 12:48 | CONS ---
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 Antibiotics as per infectious disease. Consultation Date/Type/Reason Admit Date/Time Jun 24, 2017 at 11:58 Initial Consult Date 06/24/17 Type of Consultation: cv Referring Provider: NICOLA EUBANKS MD 24 HR Interval Summary Free Text/Dictation Shortness of breath, chest pain or palpitations at rest or with activity Exam/Review of Systems Vital Signs Vitals Vital Signs Date Time Temp Pulse Resp B/P Pulse Ox O2 Delivery O2 Flow Rate FiO2 07/03/17 12:27 44 07/03/17 11:17 98.7 18 118/65 98 07/03/17 08:30 Nasal Cannula 2.0 06/29/17 07:32 45 Intake and Output 07/02/17 07/02/17 07/03/17 15:00 23:00 07:00 Intake Total 1520 ml 900 ml Output Total 650 ml 500 ml Balance 870 ml 400 ml Exam No apparent distress Constitutional: alert, obese, oriented Head: normocephalic Respiratory: other (Coarse breath sounds bilaterally, no wheezing) Cardiovascular: other (S1-S2 heard), regular rate and rhythm Gastrointestinal: bowel sounds, non-tender, soft Extremities: edema Results Result Diagram: 07/03/17 0710 07/03/17 0710 Results 24 hrs Laboratory Tests Test 07/02/17 17:18 07/02/17 21:07 07/03/17 07:10 07/03/17 08:18 Bedside Glucose 144 135 89 White Blood Count 13.3 #H Red Blood Count 2.90 L Hemoglobin 8.4 L Hematocrit 27.7 L Mean Corpuscular Volume 95.5 Mean Corpuscular Hemoglobin 29.0 Mean Corpuscular Hemoglobin Concent 30.3 L Red Cell Distribution Width 16.4 H Platelet Count 427 H Mean Platelet Volume 10.2 Neutrophils % Segmented Neutrophils % (Manual) 67 Band Neutrophils % (Manual) 4 Lymphocytes % Lymphocytes % (Manual) 21 Monocytes % Monocytes % (Manual) 6 Eosinophils % Basophils % Metamyelocytes % (manual) 1 H Myelocytes % (Manual) 1 H Nucleated Red Blood Cells % 0.5 H Neutrophils # Neutrophils # (Manual) 9.0 H Band Neutrophils # 0.5 Absolute Lymphocytes (Manual) 2.7 Lymphocytes # Monocytes # Absolute Monocytes (Manual) 0.7 Eosinophils # Basophils # Metamyelocytes # 0.1 H Myelocytes # 0.1 H Nucleated Red Blood Cells # Platelet Estimate NORMAL Dimorphic Red Blood Cells 1+ Hypochromasia 1+ Anisocytosis 1+ Tear Drop Cells 1+ Sodium Level 140 Potassium Level 3.5 Chloride Level 105 Carbon Dioxide Level 30 Anion Gap 9 Blood Urea Nitrogen 21 H Creatinine 0.87 Glucose Level 82 # Calcium Level 8.0 L Phosphorus Level 4.4 Magnesium Level 2.0 Test 07/03/17 12:12 Bedside Glucose 164 Medications Medications Current Medications Ondansetron HCl (Zofran Inj) 4 mg Q6H PRN IV NAUSEA AND/OR VOMITING; Start at 13:30 Aspirin (Aspirin) 81 mg DAILY PO Last administered on 07/03/17 08:21; Admin Dose 81 MG; Start 06/25/17 at 09:00 Acetaminophen (Tylenol Tab) 650 mg Q6H PRN PO PAIN LEVEL 1-3 OR FEVER Last administered on 06/25/17 20:58; Admin Dose 650 MG; Start 06/24/17 at 13:30 Gabapentin (Neurontin) 300 mg QHS PO Last administered on 07/02/17 21:08; Admin Dose 300 MG; Start 06/24/17 at 21:00 Tamsulosin HCl (Flomax) 0.4 mg HS PO Last administered on 07/02/17 21:08; Admin Dose 0.4 MG; Start 06/24/17 at 21:00 Atorvastatin Calcium (Lipitor) 10 mg DAILY@21 PO Last administered on 21:08; Admin Dose 10 MG; Start 06/24/17 at 21:00 Diagnostic Test (Pha) (Accu-Chek) 1 ea 02 XX Last administered on 06/30/17 02: 23; Admin Dose 1 EA; Start 06/25/17 at 02:00 Miscellaneous Information 1 ea NOTE XX ; Start 06/24/17 at 15:00 Glucose (Glutose) 15 gm Q15M PRN PO DECREASED GLUCOSE; Start 06/24/17 at 15:00 Glucose (Glutose) 22.5 gm Q15M PRN PO DECREASED GLUCOSE; Start 06/24/17 at 15: 00 Dextrose (D50w Syringe) 25 ml Q15M PRN IV DECREASED GLUCOSE; Start 06/24/17 at 15:00 Dextrose (D50w Syringe) 50 ml Q15M PRN IV DECREASED GLUCOSE; Start 06/24/17 at 15:00 Glucagon (Glucagen) 1 mg Q15M PRN IM DECREASED GLUCOSE; Start 06/24/17 at 15:00 Glucose (Glutose) 15 gm Q15M PRN BUCCAL DECREASED GLUCOSE; Start 06/24/17 at 15 :00 Albuterol (Proventil 0.083% (Neb)) 2.5 mg Q4 PRN HHN SHORTNESS OF BREATH; Start 06/24/17 at 15:00 Famotidine (Pepcid) 20 mg BID PO Last administered on 07/03/17 08:21; Admin Dose 20 MG; Start 06/25/17 at 21:00 Pantoprazole (Protonix Tab) 40 mg BID@,18 PO Last administered on 07/03/17 05:40; Admin Dose 40 MG; Start 06/30/17 at 18:00 Prednisone (Prednisone) 30 mg DAILY PO Last administered on 07/03/17 08:20; Admin Dose 30 MG; Start 07/02/17 at 12:00 Furosemide (Lasix) 20 mg DAILY PO Last administered on 07/03/17 08:20; Admin Dose 20 MG; Start 07/03/17 at 09:00 Levofloxacin (Levaquin) 750 mg DAILY@06 PO Last administered on 07/03/17 05:39 ; Admin Dose 750 MG; Start 07/02/17 at 17:30 Dennis Lopez DO Jul 03, 2017 12:48
--- NOTE | 2017-07-03 13:04 | PDOCDIS ---
Discharge Instructions CONDITION Patient Condition: Fair HOME CARE INSTRUCTIONS: Special Diet: CARB CONTROLLED ACTIVITY: Activity Restrictions: Slowly Increase Activity FOLLOW UP/APPOINTMENTS Follow-up Plan 1. Please take all new medications 2. Please follow up with your primary care provider as soon as possible to be evaluated for possible sleep apnea. SHANIA SAHA Jul 03, 2017 13:04
[2017-07-03] MEDS ORDERED: LEVO750T25 PO (13:08)
[2017-07-03] MEDS ORDERED: MED4DP PO (13:08)
[2017-07-03] MEDS ORDERED: LAS20 PO (13:08)
--- NOTE | 2017-07-03 13:26 | CONS ---
Date/Time of Note Date/Time of Note DATE: 07/03/17 TIME: 13:25 Assessment/Plan Assessment/Plan Chief Complaint/Hosp Course Alert feels good denies pain Temperature 98.7 pulse 66 respirations 18 blood pressure 118/65 saturation 98 on room air WBC 13.3 H&H 8.4 and 27.7 platelets 427 BUN 21 creatinine 0.97 Antimicrobials: Oral Levaquin Physical examination: Obese, well-developed elderly man who is alert ambulating in the room and in no distress. Head atraumatic, normocephalic. Neck is supple , trachea midline. Chest rise symmetrical breath sounds clear. Heart S1-S2. Abdomen soft bowel sounds present Assessment 1. Resolving pneumonia 2. Status post sepsis and respiratory failure 3. Coronary artery disease with a history of CABG Plan: Patient continues to improve, anticipate discharge on current antibiotics to complete treatment for pneumonia Problems: Consultation Date/Type/Reason Admit Date/Time Jun 24, 2017 at 11:58 Initial Consult Date 06/24/17 Type of Consultation: id Referring Provider: NICOLA EUBANKS MD Exam/Review of Systems Vital Signs Vitals Vital Signs Date Time Temp Pulse Resp B/P Pulse Ox O2 Delivery O2 Flow Rate FiO2 07/03/17 12:27 44 07/03/17 11:17 98.7 18 118/65 98 07/03/17 08:30 Nasal Cannula 2.0 06/29/17 07:32 45 Intake and Output 07/02/17 07/02/17 07/03/17 15:00 23:00 07:00 Intake Total 1520 ml 900 ml Output Total 650 ml 500 ml Balance 870 ml 400 ml Results Result Diagram: 07/03/17 0710 07/03/17 0710 Results 24 hrs Laboratory Tests Test 07/02/17 17:18 07/02/17 21:07 07/03/17 07:10 07/03/17 08:18 Bedside Glucose 144 135 89 White Blood Count 13.3 #H Red Blood Count 2.90 L Hemoglobin 8.4 L Hematocrit 27.7 L Mean Corpuscular Volume 95.5 Mean Corpuscular Hemoglobin 29.0 Mean Corpuscular Hemoglobin Concent 30.3 L Red Cell Distribution Width 16.4 H Platelet Count 427 H Mean Platelet Volume 10.2 Neutrophils % Segmented Neutrophils % (Manual) 67 Band Neutrophils % (Manual) 4 Lymphocytes % Lymphocytes % (Manual) 21 Monocytes % Monocytes % (Manual) 6 Eosinophils % Basophils % Metamyelocytes % (manual) 1 H Myelocytes % (Manual) 1 H Nucleated Red Blood Cells % 0.5 H Neutrophils # Neutrophils # (Manual) 9.0 H Band Neutrophils # 0.5 Absolute Lymphocytes (Manual) 2.7 Lymphocytes # Monocytes # Absolute Monocytes (Manual) 0.7 Eosinophils # Basophils # Metamyelocytes # 0.1 H Myelocytes # 0.1 H Nucleated Red Blood Cells # Platelet Estimate NORMAL Dimorphic Red Blood Cells 1+ Hypochromasia 1+ Anisocytosis 1+ Tear Drop Cells 1+ Sodium Level 140 Potassium Level 3.5 Chloride Level 105 Carbon Dioxide Level 30 Anion Gap 9 Blood Urea Nitrogen 21 H Creatinine 0.87 Glucose Level 82 # Calcium Level 8.0 L Phosphorus Level 4.4 Magnesium Level 2.0 Test 07/03/17 12:12 Bedside Glucose 164 Medications Medications Current Medications Ondansetron HCl (Zofran Inj) 4 mg Q6H PRN IV NAUSEA AND/OR VOMITING; Start at 13:30 Aspirin (Aspirin) 81 mg DAILY PO Last administered on 07/03/17 08:21; Admin Dose 81 MG; Start 06/25/17 at 09:00 Acetaminophen (Tylenol Tab) 650 mg Q6H PRN PO PAIN LEVEL 1-3 OR FEVER Last administered on 06/25/17 20:58; Admin Dose 650 MG; Start 06/24/17 at 13:30 Gabapentin (Neurontin) 300 mg QHS PO Last administered on 07/02/17 21:08; Admin Dose 300 MG; Start 06/24/17 at 21:00 Tamsulosin HCl (Flomax) 0.4 mg HS PO Last administered on 07/02/17 21:08; Admin Dose 0.4 MG; Start 06/24/17 at 21:00 Atorvastatin Calcium (Lipitor) 10 mg DAILY@21 PO Last administered on 21:08; Admin Dose 10 MG; Start 06/24/17 at 21:00 Diagnostic Test (Pha) (Accu-Chek) 1 ea 02 XX Last administered on 06/30/17 02: 23; Admin Dose 1 EA; Start 06/25/17 at 02:00 Miscellaneous Information 1 ea NOTE XX ; Start 06/24/17 at 15:00 Glucose (Glutose) 15 gm Q15M PRN PO DECREASED GLUCOSE; Start 06/24/17 at 15:00 Glucose (Glutose) 22.5 gm Q15M PRN PO DECREASED GLUCOSE; Start 06/24/17 at 15: 00 Dextrose (D50w Syringe) 25 ml Q15M PRN IV DECREASED GLUCOSE; Start 06/24/17 at 15:00 Dextrose (D50w Syringe) 50 ml Q15M PRN IV DECREASED GLUCOSE; Start 06/24/17 at 15:00 Glucagon (Glucagen) 1 mg Q15M PRN IM DECREASED GLUCOSE; Start 06/24/17 at 15:00 Glucose (Glutose) 15 gm Q15M PRN BUCCAL DECREASED GLUCOSE; Start 06/24/17 at 15 :00 Albuterol (Proventil 0.083% (Neb)) 2.5 mg Q4 PRN HHN SHORTNESS OF BREATH; Start 06/24/17 at 15:00 Famotidine (Pepcid) 20 mg BID PO Last administered on 07/03/17 08:21; Admin Dose 20 MG; Start 06/25/17 at 21:00 Pantoprazole (Protonix Tab) 40 mg BID@06,18 PO Last administered on 07/03/17 05:40; Admin Dose 40 MG; Start 06/30/17 at 18:00 Prednisone (Prednisone) 30 mg DAILY PO Last administered on 07/03/17 08:20; Admin Dose 30 MG; Start 07/02/17 at 12:00 Furosemide (Lasix) 20 mg DAILY PO Last administered on 07/03/17 08:20; Admin Dose 20 MG; Start 07/03/17 at 09:00 Levofloxacin (Levaquin) 750 mg DAILY@06 PO Last administered on 07/03/17 05:39 ; Admin Dose 750 MG; Start 07/02/17 at 17:30 RAHUL GRAVES NP Jul 03, 2017 13:26
--- NOTE | 2017-07-03 16:31 | DS ---
Date/Time of Note Date/Time of Note DATE: 07/03/17 TIME: 16:29 Discharge Summary Admission/Discharge Info Admit Date/Time Jun 24, 2017 at 11:58 Discharge Date/Time Patient Condition: Stable Hx of Present Illness 61 yo M with PMH CAD s/p CABG 10 years ago, HTN, CAD, prediabetes, and ventral hernia presents to the ED after c/o SOB and myalgia for the past 3 days. Patient family was at bedside and history obtained from patient as well as son. Patient lives at home with son as well. Patient has been experiencing SOB with nonproductive cough that has been progressively worsening. Admits to associated fever, chills, sweats, nausea with vomiting, and diarrhea. Per son, he believes he may have the flu and source of sick contact for patient. Patient has also been experiencing lower extremity swelling but believes it was secondary to insect bite he obtained a couple months ago. Patient lives a sedentary lifestyle and has been eliminating carbohydrates from his diet with goal of weight loss. Patient denies any chest pain, dizziness, palpitations, numbness/tingling, or any other concerning symptoms. Patient was found to be hypoxic in the ED and started on BIPAP which he has been tolerating well. Hospital Course Patient is a 61-year-old male with a past medical history significant for CABG 10 years ago, hypertension, coronary artery disease who presents to the ED with shortness of breath and myalgia for 3 days, found to have sepsis secondary to right lower lobe pneumonia. Patient was originally on high flow oxygen and antibiotics however eventually patient was able to wean down antibiotics and patient's medications were adjusted for heart failure. Further complicating patient's multifocal pneumonia and shortness of breath was an acute upper GI bleed and GI was consulted which resulted in EGD and found esophageal ulceration with gastritis and duodenitis and patient was placed on Protonix twice daily and to follow-up with GI as soon as possible. Over the course of a extended period of time patient's vitals stabilized white count decreased significantly and patient had no trouble ambulating on room air. Patient was discharged on appropriate medications, however patient was not given a prescription for Protonix, patient's son was called to brass pickler prescription and he understood the importance of picking up the prescriptions and stated that he would pick him up today. It was also explained he would need to follow-up with GI and cardiology as well as his primary care provider as soon as possible. Discharge diagnosis Acute respiratory failure Multifocal pneumonia Sepsis Upper GI bleed Esophageal ulceration Acute decompensated diastolic heart failure Electrolyte abnormality Diabetes mellitus Coronary artery disease Home Meds Active Scripts Methylprednisolone* (Medrol* DOSE PACK) 4 Mg/Dose-Pack Tab.ds.pk, 4 MG PO . DIRECTED for 6 Days, #1 PACKET Prov:SHANIA SAHA J 07/03/17 Furosemide (Lasix) 20 Mg Tab, 20 MG PO DAILY for 30 Days, #30 TAB Prov:YIFANSHANIA 07/03/17 Levofloxacin* (Levaquin*) 750 Mg Tablet, 750 MG PO DAILY for 5 Days, #5 TAB Prov:SHANIA SAHA J 07/03/17 Reported Medications Aspirin* (Aspirin* Chew) 81 Mg Tab.chew, 81 MG PO DAILY, TAB.CHEW 06/24/17 Gabapentin* (Gabapentin*) 300 Mg Capsule, 300 MG PO QHS, #90 CAP 06/24/17 Glimepiride* (Glimepiride*) 1 Mg Tablet, 1 MG PO WITH BREAKFAST, TAB 06/24/17 Tamsulosin Hcl* (Flomax*) 0.4 Mg Cap.er.24h, 0.4 MG PO HS, CAP 06/24/17 Ranitidine Hcl* (Zantac*) 150 Mg Tablet, 150 MG PO DAILY, TAB 05/05/15 Simvastatin (Simvastatin) 10 Mg Tablet, 10 MG PO HS, TAB 05/05/15 Discontinued Reported Medications Ergocalciferol (Vitamin D2) (VITAMIN D2) 50,000 Unit Capsule, 01688 UNIT PO WEEKLY, CAP 06/24/17 Furosemide* (Furosemide*) 40 Mg Tablet, 40 MG PO DAILY, TAB 06/24/17 Carvedilol* (Carvedilol*) 3.125 Mg Tablet, 3.125 MG PO BID, TAB 05/05/15 Follow-up Plan 1. Please take all new medications 2. Please follow up with your primary care provider as soon as possible to be evaluated for possible sleep apnea. Primary Care Provider Care Physician No Primary Time spent on discharge: > 30 minutes Pending Labs Laboratory Tests Test 07/02/17 17:18 07/02/17 21:07 07/03/17 07:10 07/03/17 08:18 Bedside Glucose 144mg/dL (70-220) 135mg/dL (70-220) 89mg/dL (70-220) White Blood Count 13.310^3/ul (4.8-10.8) Red Blood Count 2.9010^6/ul (4.70-6.10) Hemoglobin 8.4g/dl (14.0-18.0) Hematocrit 27.7% (42.0-52.0) Mean Corpuscular Volume 95.5fl (82.0-101.0) Mean Corpuscular Hemoglobin 29.0pg (29.0-33.0) Mean Corpuscular Hemoglobin Concent 30.3g/dl (32.0-37.0) Red Cell Distribution Width 16.4% (11.5-14.5) Platelet Count 74069^3/UL (140-415) Mean Platelet Volume 10.2fl (7.4-10.4) Neutrophils % % (39.0-77.0) Segmented Neutrophils % (Manual) 67% (39-77) Band Neutrophils % (Manual) 4% (0-4) Lymphocytes % % (15.0-51.0) Lymphocytes % (Manual) 21% (15-51) Monocytes % % (0.0-11.0) Monocytes % (Manual) 6% (0-11) Eosinophils % % (0.0-7.0) Basophils % % (0.0-2.0) Metamyelocytes % (manual) 1% (0-0) Myelocytes % (Manual) 1% (0-0) Nucleated Red Blood Cells % 0.5/100WBC (0.0-0.0) Neutrophils # 10^3/ul (1.6-7.5) Neutrophils # (Manual) 9.010^3/ul (1.7-7.5) Band Neutrophils # 0.510^3/ul (0.0-0.6) Absolute Lymphocytes (Manual) 2.710^3/ul (0.8-2.9) Lymphocytes # 10^3/ul (0.8-2.9) Monocytes # 10^3/ul (0.3-0.9) Absolute Monocytes (Manual) 0.710^3/ul (0.3-0.9) Eosinophils # 10^3/ul (0.0-0.5) Basophils # 10^3/ul (0.0-0.1) Metamyelocytes # 0.110^3/ul (0.0-0.0) Myelocytes # 0.110^3/ul (0.0-0.0) Nucleated Red Blood Cells # 10^3/ul (0.0-0.0) Platelet Estimate NORMAL Dimorphic Red Blood Cells 1+ (0-0) Hypochromasia 1+ (0-0) Anisocytosis 1+ (0-0) Tear Drop Cells 1+ (0-0) Sodium Level 140mmol/L (135-144) Potassium Level 3.5mmol/L (3.5-5.1) Chloride Level 105mmol/L (97-110) Carbon Dioxide Level 30mmol/L (21-31) Anion Gap 9 (8-16) Blood Urea Nitrogen 21mg/dl (7-20) Creatinine 0.87mg/dl (0.61-1.24) Glucose Level 82mg/dl (70-220) Calcium Level 8.0mg/dl (8.4-10.2) Phosphorus Level 4.4mg/dl (2.5-4.9) Magnesium Level 2.0mg/dl (1.7-2.5) Test 07/03/17 12:12 07/03/17 13:58 Bedside Glucose 164mg/dL (70-220) Lab Scanned Report BLOOD [id number] SHANIA SAHA Jul 03, 2017 16:31
== END 2017-07-03 16:16 | disposition home health service (06) | DRG 871 ==
LOC: E/R 10:16 → MS4 11:58 → ICU 13:59 → TEL 06-30 05:37
PROVIDERS: ADMIT Internal Medicine; ATTEND Internal Medicine
PROC: 30233N1 Transfusion of Nonautologous Red Blood Cells into Peripheral Vein, Percutaneous Approach (ICD-10-PCS; 2017-06-27)
PROC: 0DJ08ZZ Inspection of Upper Intestinal Tract, Via Natural or Artificial Opening Endoscopic (ICD-10-PCS; principal; 2017-06-28 19:00)
DX: A41.9 Sepsis, unspecified organism (principal); J18.9 Pneumonia, unspecified organism; J96.01 Acute respiratory failure with hypoxia; I50.43 Acute on chronic combined systolic (congestive) and diastolic (congestive) heart failure; J96.02 Acute respiratory failure with hypercapnia; E87.1 Hypo-osmolality and hyponatremia; K22.10 Ulcer of esophagus without bleeding; K92.2 Gastrointestinal hemorrhage, unspecified; Z68.42 Body mass index [BMI] 45.0-49.9, adult; I11.9 Hypertensive heart disease without heart failure; E11.40 Type 2 diabetes mellitus with diabetic neuropathy, unspecified; R74.0 Nonspecific elevation of levels of transaminase and lactic acid dehydrogenase [LDH]; E11.9 Type 2 diabetes mellitus without complications; I25.10 Atherosclerotic heart disease of native coronary artery without angina pectoris; Z95.1 Presence of aortocoronary bypass graft; Z87.891 Personal history of nicotine dependence; I25.2 Old myocardial infarction; E66.01 Morbid (severe) obesity due to excess calories; E78.5 Hyperlipidemia, unspecified; N40.0 Benign prostatic hyperplasia without lower urinary tract symptoms; Z72.3 Lack of physical exercise; R00.1 Bradycardia, unspecified; R59.0 Localized enlarged lymph nodes; K44.9 Diaphragmatic hernia without obstruction or gangrene; K29.70 Gastritis, unspecified, without bleeding; K29.80 Duodenitis without bleeding; D64.9 Anemia, unspecified
CPT/HCPCS: 36415; 36430; 36600; 71010; 71275; 80048; 80053; 80061; 80202; 81001; 82803; 82962; 83036; 83605; 83690; 83735; 83880; 84100; 84484; 85014; 85018; 85025; 85610; 85730; 86850; 86900; 86901; 86920; 87040; 87081; 87086; 93005; 93306; 94660; 94664; 96365; 96375; 97162; J1940; C9113; J0456; J0692; J0696; J1644; J1815; J2250; J2370; J2930; J3370; J7040; J7050; J7512; P9016; Q9967

== ENCOUNTER 2018-05-10 16:15 | Inpatient (IN) | END 2018-05-11 10:59 | disposition home or self-care (01) | DRG 54 ==